=== PATIENT | female | born 1955 | race Caucasian/White ===

== ENCOUNTER 2019-09-23 10:46 | Emergency (ER) | payer MEDICAID, SELFPAY ==
[2019-09-23 11:07] VITALS: BP 117/53; PULSE 73; RESP 18; TEMP 36.6; O2SAT 97; BMI 25.0
--- NOTE | 2019-09-23 11:14 | W.ED.ABDPA2 ---
HPI - Abdominal Pain General: Chief Complaint: Abdominal Pain Stated Complaint: Abd pain, patient comes in today with right upper quadrant pain since 230 this morning. Patient knows she has a history of gallstones. Patient reports that she thinks is just acting up for her. Patient does have a history of coronary artery disease. Patient is a smoker. Patient appears well. Patient appears in mild pain. Time Seen by Provider: 09/23/19 11:13 Source: patient Mode of arrival: ambulatory Limitations: no limitations History of Present Illness: Associated Symptoms: Reports nausea Review of Systems General: Reports: 10 or more systems reviewed and unremarkable except in HPI and below GI: Reports: abdominal pain (RUQ) and nausea PFSH ED PFSH: Statuses (acute, chronic, etc) shown below reflect problem list status as previously entered and may not be historically accurate Social History Smoking and tobacco status: current every day smoker Physical Exam Const: COMMON NORMALS: no apparent distress and oriented x3 GENERAL APPEARANCE: cooperative HENMT: COMMON NORMALS: normocephalic, external ears normal, EAC's normal, TM's normal bilaterally and external nose normal HEAD & SCALP: normal to inspection and normocephalic FACE & SINUS: normal facial exam NOSE: external nose normal GENERAL EAR: hearing grossly impaired EXTERNAL EAR: Yes external ears normal EXTERNAL AUDITORY CANAL: EAC's normal TYMPANIC MEMBRANE: TM's normal bilaterally MOUTH: oral and palatal mucosa normal THROAT: posterior oropharynx normal Eye: COMMON NORMALS: PERRL and EOMs intact bilaterally PUPIL: Yes PERRL Neck/C-Spine: COMMON NORMALS: full ROM and no lymphadenopathy Lymph: LYMPHATIC: no lymphedema noted Chest: COMMONS NORMALS: inspection of chest normal and palpation of chest normal Resp: COMMON NORMALS: normal respiratory effort and clear to auscultation bilaterally AUSCULTATION: clear to auscultation bilaterally Cardio: COMMON NORMALS: regular rate and regular rhythm RATE: regular rate RHYTHM: regular rhythm GI: COMMON NORMALS: normal to inspection, nondistended, normoactive bowel sounds; negative for non-tender (ruq tenderness, no guarding) : COMMON NORMALS: Yes no CVA tenderness BLADDER/KIDNEY EXAM: Yes no CVA tenderness Back/Pelvis: COMMON NORMALS: no CVA tenderness and thoracic and lumbar spine normal to inspection Extremity: COMMON NORMALS: normal to inspection GENERAL: No edema Neuro: COMMON NORMALS: oriented x3, moves all extremities and no focal motor deficits Psych: COMMON NORMALS: mental status grossly normal and cooperative Skin: COMMON NORMALS: no rashes or lesions noted GENERAL SKIN EXAM: no rashes or lesions noted Course ED course: 1226, Patient reports pain relief unless she pushes on RUQ. Patient appears well. wjw Vital Signs: Vital signs: Vital Signs Temperature 97.8 F 09/23/19 11:07 Pulse Rate 71 09/23/19 14:09 Respiratory Rate 20 H 09/23/19 14:09 Blood Pressure 127/54 09/23/19 14:09 Pulse Oximetry 92 09/23/19 14:09 MDM - Abdominal Pain MDM Narrative: Medical decision making narrative: Patient comes in today for complaints of right upper quadrant pain radiating to the mid back. Patient appears well. Patient reports pain is better now since getting to the ER, but was real bad last night. Exam notes abdomen tenderness in the right upper quadrant. Bowel sounds are present throughout. Vital signs are stable without fever. Differential diagnosis includes cholecystitis, cholelithiasis, gastroenteritis, gastritis. Laboratory values were significant for some mild elevation in liver enzymes and lipase. Ultrasound of the gallbladder noted no common bile duct obstruction. Reviewed exam with patient recommended follow-up with surgeon for further treatment patient reported understanding and agreed to plan. Lab Data: Labs: Lab Results 09/23/19 09/23/19 09/23/19 Range/Units 11:50 11:59 11:59 WBC 11.2 H (4.0-10.0) 10^3/ uL RBC 6.04 H (4.1-5.3) 10^6/u L Hgb 13.6 (11.5-15.3) g/dL Hct 46.1 (37.0-47.0) % MCV 76.3 L (81-99) fL MCH 22.5 L (28.0-34.0) pg MCHC 29.5 L (30.0-36.0) g/dL RDW 17.2 H (12.1-15.1) % Plt Count 385 (130-400) 10^3/c mm MPV 9.9 (7.4-10.4) fL Neut % (Auto) 63.6 % Lymph % (Auto) 23.2 % [place] % (Auto) 8.6 % Eos % (Auto) 3.9 % Baso % (Auto) 0.4 % Neut # (Auto) 7.1 (1.8-7.7) 10^3/u L Lymph # (Auto) 2.6 (0.8-4.8) 10^3/u L [place] # (Auto) 1.0 H (0.2-0.9) 10^3/u L Eos # (Auto) 0.4 (0.0-0.8) 10^3/u L Baso # (Auto) 0.1 (0.0-0.1) 10^3/u L Nucleated RBC % (a uto) 0 % Nucleated RBCs # 0.0 /100WBC Sodium 136 (136-145) mmol/L Potassium 4.1 (3.5-5.1) mmol/L Chloride 94 L (98-107) mmol/L Carbon Dioxide 27 (22-29) mmol/L Anion Gap 19.1 H (5-19) BUN 17 (8-23) mg/dL Creatinine 0.6 (0.5-0.9) mg/dL GFR Calculation 100.6 (90-130) mL/min Glucose 147 H (74-106) mg/dL Calcium 10.8 H (8.8-10.2) mg/Dl Total Bilirubin 0.5 (0.15-1.2) mg/dL AST 12 (0-32) U/L ALT 7 (0-33) U/L Alkaline Phosphata se 107 H (35-105) IU/L Total Protein 8.5 (6.6-8.7) g/dL Albumin 5.2 (3.5-5.2) g/dL Globulin 3.3 (1.3-4.6) g/dL Lipase 61 H (13-60) U/L HCG, Qual (Negative) Urine Color Yellow (Yellow) Urine Appearance Sl hazy (CLEAR) Urine pH 5 (5-7) Ur Specific Gravit y 1.010 (1.005-1.030) Urine Protein Neg (Negative) Urine Glucose (UA) Norm (Normal) Urine Ketones Negative (Negative) Urine Occult Blood Trace H (Negative) Urine Nitrate Negative (Negative) Urine Bilirubin Neg (NEGATIVE) Urine Urobilinogen 1 H (Negative) mg/dL Ur Leukocyte Stefanie ase Negative (Negative) Urine RBC 0-4 H (0-2) /hpf Urine WBC Rare (0-5) /hpf Ur Squamous Epith Cells 25-40 H (0-5) Urine Bacteria 2+ H (NONE) Urine Mucus 1+ 09/23/19 Range/Units 11:59 WBC (4.0-10.0) 10^3/ uL RBC (4.1-5.3) 10^6/u L Hgb (11.5-15.3) g/dL Hct (37.0-47.0) % MCV (81-99) fL MCH (28.0-34.0) pg MCHC (30.0-36.0) g/dL RDW (12.1-15.1) % Plt Count (130-400) 10^3/c mm MPV (7.4-10.4) fL Neut % (Auto) % Lymph % (Auto) % [place] % (Auto) % Eos % (Auto) % Baso % (Auto) % Neut # (Auto) (1.8-7.7) 10^3/u L Lymph # (Auto) (0.8-4.8) 10^3/u L [place] # (Auto) (0.2-0.9) 10^3/u L Eos # (Auto) (0.0-0.8) 10^3/u L Baso # (Auto) (0.0-0.1) 10^3/u L Nucleated RBC % (a uto) % Nucleated RBCs # /100WBC Sodium (136-145) mmol/L Potassium (3.5-5.1) mmol/L Chloride (98-107) mmol/L Carbon Dioxide (22-29) mmol/L Anion Gap (5-19) BUN (8-23) mg/dL Creatinine (0.5-0.9) mg/dL GFR Calculation (90-130) mL/min Glucose (74-106) mg/dL Calcium (8.8-10.2) mg/Dl Total Bilirubin (0.15-1.2) mg/dL AST (0-32) U/L ALT (0-33) U/L Alkaline Phosphata se (35-105) IU/L Total Protein (6.6-8.7) g/dL Albumin (3.5-5.2) g/dL Globulin (1.3-4.6) g/dL Lipase (13-60) U/L HCG, Qual Negative (Negative) Urine Color (Yellow) Urine Appearance (CLEAR) Urine pH (5-7) Ur Specific Gravit y (1.005-1.030) Urine Protein (Negative) Urine Glucose (UA) (Normal) Urine Ketones (Negative) Urine Occult Blood (Negative) Urine Nitrate (Negative) Urine Bilirubin (NEGATIVE) Urine Urobilinogen (Negative) mg/dL Ur Leukocyte Stefanie ase (Negative) Urine RBC (0-2) /hpf Urine WBC (0-5) /hpf Ur Squamous Epith Cells (0-5) Urine Bacteria (NONE) Urine Mucus Discharge Plan Discharge Patient Disposition: Home, Self-Care Clinical Impression: Biliary colic Gallstone Qualifiers: Cholecystitis presence: without cholecystitis Biliary obstruction: without biliary obstruction Qualified Code(s): K80.20 - Calculus of gallbladder without cholecystitis without obstruction Condition: Stable Prescriptions: New dicyclomine 20 mg tablet 20 mg PO TID Qty: 20 RF: 0 hydrocodone-acetaminophen 5-325 mg tablet 1 tab PO Q6H PRN (Reason: pain) Qty: 14 RF: 0 ondansetron HCl 4 mg tablet 4 mg PO Q8H PRN (Reason: nausea and vomiting) Qty: 10 RF: 0 No Action furosemide 40 mg tablet 40 mg PO DAILY RF: 0 atorvastatin 40 mg tablet 40 mg PO DAILY RF: 0 metformin 500 mg tablet 1,000 mg PO BID RF: 0 aspirin 81 mg tablet,delayed release (DR/EC) 81 mg PO DAILY RF: 0 spironolactone 25 mg tablet 25 mg PO DAILY RF: 0 carvedilol 3.125 mg tablet 3.125 mg PO BID RF: 0 potassium chloride 20 mEq Tablet,Er Particles/Crystals 20 meq PO DAILY RF: 0 nicotine 21 mg/24 hr Patch 24 Hour 1 patch TRANSDERMAL DAILY RF: 0 lisinopril 5 mg tablet 5 mg PO DAILY RF: 0 Advair Diskus 100-50 mcg/dose Blister With Device 1 puff INHALATION BID RF: 0 Referrals: Ahsan Daugherty, [employer] [employer] [facility] [Primary Care Provider] - Discharge Diet: Low Fat Discharge Activity: Resume usual activity Patient Instructions: Biliary Colic (ED), Abdominal Pain (ED) Activity Restrictions/Additional Instructions: Light diet Avoid greasy, high fat meals Drink plenty of water with medications Follow-up with surgeon for further treatment Return to ER for fever, uncontrolled pain, or inability to hold medication down Coding Level of Care Code ED [facility] [employer] for Shruti Olvera Exam Problem Focused
--- NOTE | 2019-09-23 11:21 | USR_ITS ---
PROCEDURE INFORMATION: Exam: US Abdomen Limited, Right Upper Quadrant Exam date and time: 09/23/2019 1:16 PM Age: 64 years old Clinical indication: Abdominal pain; Additional info: Ruq pain, history of gallstones. Prior exam on 08-31-19 TECHNIQUE: Imaging protocol: Real-time ultrasound of the abdomen with image documentation. Examination was focused on the right upper quadrant. COMPARISON: US gall bladder [id number] 08/31/2019 7:23 AM FINDINGS: Liver: Within normal limits. No masses. Gallbladder: The gallbladder is distended with echogenic nonshadowing sludge. There is a 1.6 cm shadowing echogenic gallstone within the gallbladder lumen. The gallbladder wall is thickened and echogenic, measuring up to 5 mm. Sonographic Potts sign was not assessed. Common bile duct: Normal in caliber at 5 mm. No stones. Pancreas: Visualized portions of the pancreas are unremarkable. The pancreas was not visualized in its entirety secondary to shadowing bowel gas. Right kidney: The right kidney measures 10.1 by 6.8 x 5.5 cm. There is no evidence of hydronephrosis or shadowing echogenic renal stone. Aorta: The proximal aorta measures 2.0 cm. The mid aorta measures 1.8 cm. Inferior vena cava: The IVC measures approximately 1.5 cm. US/US gall bladder [id number] IMPRESSION: 1. Unchanged appearance of gallbladder sludge with cholelithiasis and gallbladder wall thickening. The common bile duct remains normal in caliber. A sonographic Potts sign was not provided making these findings equivocal for acute cholecystitis. Correlation with clinical parameters is suggested with general surgical consultation as warranted.
[2019-09-23 11:56] VITALS: BP 130/53; PULSE 70; RESP 18; O2SAT 97
--- NOTE | 2019-09-23 11:59 | PC.NURSE ---
Nurse at beside giving medications
[2019-09-23] MEDS: ondansetron 2 mg/ML SDV 2 mL 4 MG IVP (12:00)
[2019-09-23] MEDS: ketorolac 30 mg/mL INJ 15 MG IVP (12:00)
[2019-09-23 12:02] VITALS: RESP 18
[2019-09-23] MEDS: morphine 4 mg/mL SDV 1 mL 2 MG IVP (12:02)
[2019-09-23] MEDS: sodium chloride 0.9% 500 ML IV (12:11)
[2019-09-23 12:18] LABS: Basophils # 0.1 10^3/uL (0.0-0.1); Basophils % 0.4 %; Eosinophils # 0.4 10^3/uL (0.0-0.8); Eosinophils % 3.9 %; Hematocrit 46.1 % (37.0-47.0); Hemoglobin 13.6 g/dL (11.5-15.3); Lymphocytes # 2.6 10^3/uL (0.8-4.8); Lymphocytes % 23.2 %; Mean Corpuscular HGB Conc 29.5 g/dL (30.0-36.0); Mean Corpuscular Hemoglobin 22.5 pg (28.0-34.0); Mean Corpuscular Volume 76.3 fL (81-99); Mean Platelet Volume 9.9 fL (7.4-10.4); Monocytes % 8.6 %; Neutrophils # 7.1 10^3/uL (1.8-7.7); Neutrophils % 63.6 %; Nucleated Red Blood Cells % 0 %; Platelet Count 385 10^3/cmm (130-400); Red Blood Count 6.04 10^6/uL (4.1-5.3); Red Cell Distribution Width 17.2 % (12.1-15.1); White Blood Count 11.2 10^3/uL (4.0-10.0)
[2019-09-23 12:43] LABS: Bilirubin Urine Neg (NEGATIVE); Blood Urine Trace (Negative); Glucose Urine UA Norm (Normal); Ketones Urine Negative (Negative); Nitrate Urine Negative (Negative); Protein Urine Neg (Negative); Urine Appearance SL Hazy (CLEAR); Urine Color Yellow (Yellow); Urobilinogen Urine 1 mg/dL (Negative); pH Urine 5 (5-7)
[2019-09-23 12:44] LABS: Leukocyte Esterase Urine Negative (Negative)
[2019-09-23 12:45] LABS: Bacteria Urine 2+; Mucus Urine 1+; RBC Urine 0-4 /hpf (0-2); Squamous Epithelial Cell Urine 25-40 (0-5); WBC Urine RARE /hpf (0-5)
[2019-09-23 12:46] LABS: Add Urine Culture? No
[2019-09-23 12:59] LABS: HCG, Serum Qual Negative (Negative)
[2019-09-23 13:06] LABS: Alanine Aminotransferase 7 U/L (0-33); Albumin Level 5.2 g/dL (3.5-5.2); Alkaline Phosphatase 107 IU/L (35-105); Anion Gap 19.1 (5-19); Aspartate Amino Transferase 12 U/L (0-32); Blood Urea Nitrogen 17 mg/dL (8-23); Calcium 10.8 mg/Dl (8.8-10.2); Carbon Dioxide 27 mmol/L (22-29); Chloride 94 mmol/L (98-107); Globulin 3.3 g/dL (1.3-4.6); Glomerular Filtration Rate 100.6 mL/min (90-130); Glucose 147 mg/dL (74-106); Lipase 61 U/L (13-60); Potassium 4.1 mmol/L (3.5-5.1); Sodium 136 mmol/L (136-145); Total Bilirubin 0.5 mg/dL (0.15-1.2); Total Protein 8.5 g/dL (6.6-8.7)
[2019-09-23 14:09] VITALS: BP 127/54; PULSE 71; RESP 20; O2SAT 92
[2019-09-23 14:56] VITALS: BP 113/52; PULSE 68; RESP 20; O2SAT 91
--- NOTE | 2019-09-24 12:43 | DCPLANNER ---
manager assembly had message to schedule a follow up appointment for patient with general surgery. manager assembly called [facility], spoke with Guillermina, gave clinic patients information. A follow up appointment is scheduled for Thursday October 03, 2019 at 4:[address] Reddy. Clinic will call patient with the appointment information.
--- NOTE | 2019-10-09 14:23 | DCPLANNER ---
Patient attended appointment scheduled for 10.03.19 with [facility].
== END 2019-09-23 14:57 | disposition home or self-care (01) ==
PROVIDERS: Emergency Provider Nurse Practitioner Family; Family Provider Nurse Practitioner Family; PCP Nurse Practitioner Family
DX: K80.20 Calculus of gallbladder without cholecystitis without obstruction (principal); F17.210 Nicotine dependence, cigarettes, uncomplicated
CPT/HCPCS: 76705; 80053; 81001; 83690; 84703; 85025; 96360; 96374; 99282; A9270; J1885; J2270; J2405; J7040

== ENCOUNTER 2019-12-11 08:32 | Outpatient (CLI) | payer MEDICAID, SELFPAY ==
--- NOTE | 2019-12-11 09:30 | USCV_ITS ---
Shannan Cisneros Age: 64 Gender: F : 1955 Exam Date: 12/11/2019 08:53 Ordering Phys: Diogenes Hawley MD ([email or web address]) Technologist: Vidal Treviño [place] [facility] [place]ication: ? EF BP: 136 / 80 HR: 75 Rhythm: Sinus Technical Quality: Fair MEASUREMENTS (Male / Female) Normal Values 2D ECHO LV Diastolic Diameter PLAX 5.3 cm 4.2 - 5.9 / 3.9 - 5.3 cm LV Systolic Diameter PLAX 4.5 cm IVS Diastolic Thickness 1.2 cm 0.6 - 1.0 / 0.6 - 0.9 cm IVS Systolic Thickness 1.3 cm LVPW Diastolic Thickness 0.9 cm 0.6 - 1.0 / 0.6 - 0.9 cm LVPW Systolic Thickness 1.3 cm LVOT Diameter 2.0 cm LV Ejection Fraction 2D Teich 31.2 % LV Ejection Fraction MOD 2C 42.4 % LV Ejection Fraction 2C AL 42.2 % LA Diameter 4.5 cm LA Width 3.7 cm LA Height 4.5 cm RA Width 3.4 cm RA Height 4.3 cm Aorta at Sinotubular Diameter 2.7 cm M-MODE LV Diastolic Diameter MM 5.6 cm 4.2 - 5.9 / 3.9 - 5.3 cm LV Systolic Diameter MM 4.6 cm LV Ejection Fraction MM Teich 34.8 % IVS Diastolic Thickness MM 1.1 cm 0.6 - 1.0 / 0.6 - 0.9 cm IVS Systolic Thickness MM 1.5 cm LVPW Diastolic Thickness MM 1.4 cm 0.6 - 1.0 / 0.6 - 0.9 cm LVPW Systolic Thickness MM 1.8 cm RV Diastolic Diameter MM 2.1 cm Aortic Annulus Diameter 2.9 cm LA Ao Ratio MM 1.6 MV E Point Septal Separation 2.3 cm DOPPLER AV Peak Velocity 181.0 cm/s LVOT Peak Velocity 101.0 cm/s AV Area Cont Eq vti 1.9 cm squared AV Area Cont Eq pk 1.8 cm squared MV Area PHT 5.0 cm squared Mitral E to A Ratio 0.6 MV E' Velocity 8.0 cm/s Mitral E to MV E' Ratio 9.6 Mitral E to LV E' Lateral Ratio 8.4 Mitral E to LV E' Septal Ratio 11.3 TR Peak Velocity 171.0 cm/s TR Peak Gradient 11.7 mmHg TV Peak E Velocity 83.0 cm/s Right Atrial Pressure 3.0 mmHg Pulmonary Artery Systolic Pressu 14.7 mmHg FINDINGS Left Ventricle Mildly increased left ventricular cavity size. Diffuse hypokinesia of the left ventricle with ejection fraction of around 30%.Grade I/IV diastolic dysfunction (abnormal relaxation filling pattern), normal to mildly elevated filling pressures. Right Ventricle Normal right ventricular size and systolic function. Right Atrium Possibly of normal size Left Atrium Mildly increased left atrial size. Mitral Valve Thickened mitral valve. Aortic Valve Thickened aortic valve. Moderate aortic valve regurgitation. Tricuspid Valve No gross abnormalities noted Pulmonic Valve Pulmonic valve not well visualized. Pericardium No pericardial effusion. Aorta Normal aortic annulus size. CONCLUSIONS Mildly increased left ventricular cavity size. Diffuse hypokinesia of the left ventricle with ejection fraction of around 30%. Grade I/IV diastolic dysfunction (abnormal relaxation filling pattern), normal to mildly elevated filling pressures. Mildly increased left atrial size. Thickened aortic valve. Moderate aortic valve regurgitation. There is no pericardial effusion. There are no intracardiac masses. Compared to the previous study from 08/31/2019, there may not be a significant change. Dr Negra Peña MD FACC (Electronically Signed) Final Date: 11 December 2019 19:21 S
== END 2019-12-11 08:33 | disposition home or self-care (01) ==
PROVIDERS: Family Provider Nurse Practitioner Family; PCP Nurse Practitioner Family; Visit Provider Internal Medicine Cardiovascular Disease
DX: I42.8 Other cardiomyopathies (principal); I51.7 Cardiomegaly; I35.1 Nonrheumatic aortic (valve) insufficiency
CPT/HCPCS: 93306

== ENCOUNTER 2020-02-08 08:40 | Outpatient (CLI) | payer MEDICAID, SELFPAY ==
--- NOTE | 2020-02-08 08:45 | USCV_ITS ---
Shannan Cisneros Age: 64 Gender: F : 1955 Exam Date: 02/08/2020 09:05 Ordering Phys: Celena Espana MD ([email or web address]) Technologist: Vidal Treviño Exam Location: [place] Indication: EF BP: 130 / 78 HR: 70 Rhythm: Sinus Technical Quality: Adequate MEASUREMENTS (Male / Female) Normal Values 2D ECHO LV Diastolic Diameter PLAX 5.3 cm 4.2 - 5.9 / 3.9 - 5.3 cm LV Systolic Diameter PLAX 3.8 cm IVS Diastolic Thickness 1.1 cm 0.6 - 1.0 / 0.6 - 0.9 cm IVS Systolic Thickness 1.4 cm LVPW Diastolic Thickness 1.2 cm 0.6 - 1.0 / 0.6 - 0.9 cm LVPW Systolic Thickness 1.6 cm LVOT Diameter 2.0 cm LV Ejection Fraction 2D Teich 52.8 % LV Ejection Fraction MOD 2C 55.7 % LV Ejection Fraction 2C AL 55.0 % LA Diameter 4.4 cm LA Width 3.9 cm LA Height 5.0 cm RA Width 3.8 cm RA Height 4.6 cm M-MODE LV Diastolic Diameter MM 5.7 cm 4.2 - 5.9 / 3.9 - 5.3 cm LV Systolic Diameter MM 4.8 cm LV Ejection Fraction MM Teich 34.0 % IVS Diastolic Thickness MM 1.0 cm 0.6 - 1.0 / 0.6 - 0.9 cm IVS Systolic Thickness MM 1.4 cm LVPW Diastolic Thickness MM 1.5 cm 0.6 - 1.0 / 0.6 - 0.9 cm LVPW Systolic Thickness MM 1.8 cm RV Diastolic Diameter MM 2.1 cm Aortic Annulus Diameter 3.7 cm LA Ao Ratio MM 1.2 MV E Point Septal Separation 2.3 cm FINDINGS Left Ventricle Normal left ventricular cavity size. Moderately decreased left ventricular systolic function. Left ventricular ejection fraction is estimated at 35-40 %. Moderate diffuse hypokinesis. Abnormal septal motion consistent with conduction abnormality. Right Ventricle Normal right ventricular size and systolic function. Right Atrium Normal right atrial size. Right atrial pressure estimated at 3 mmHg. Left Atrium Normal left atrial size. Mitral Valve Moderately thickened mitral valve. Trace mitral valve regurgitation. Aortic Valve Aortic valve not well visualized. Tricuspid Valve Structurally normal tricuspid valve. Pulmonic Valve Pulmonic valve not well visualized. Pericardium No pericardial effusion. Aorta Normal size aortic root and proximal ascending aorta. CONCLUSIONS 1. Normal left ventricular cavity size. Moderately decreased left ventricular systolic function. Left ventricular ejection fraction is estimated at 35-40 %. Moderate diffuse hypokinesis. 2. Normal right ventricular size and systolic function. 3. Right atrial pressure estimated at 3 mmHg. 4. When compared to previous echocardiogram dated 11/19/2019, left ventricle systolic function seems to have improved. Celena Espana MD (Electronically Signed) Final Date: 12 Feb 2020 10:57 S
== END 2020-02-08 08:41 | disposition home or self-care (01) ==
PROVIDERS: PCP Nurse Practitioner Family; Visit Provider Internal Medicine Cardiovascular Disease
DX: I50.42 Chronic combined systolic (congestive) and diastolic (congestive) heart failure (principal)
CPT/HCPCS: 93308

== ENCOUNTER → 2020-02-13 08:49 | Outpatient (BNVA) | payer MEDICAID, SELFPAY | PROVIDERS: Family Provider Nurse Practitioner Family; PCP Nurse Practitioner Family; Visit Provider Internal Medicine Cardiovascular Disease | DX: I42.9 Cardiomyopathy, unspecified (principal); I42.0 Dilated cardiomyopathy; I25.10 Atherosclerotic heart disease of native coronary artery without angina pectoris; I10 Essential (primary) hypertension; E78.5 Hyperlipidemia, unspecified | CPT/HCPCS: 80048; 83735; 83880 ==

== ENCOUNTER 2020-10-01 11:00 | Outpatient (CLI) | payer MEDICAID, SELFPAY | END 2020-10-01 11:01 | disposition home or self-care (01) | LOC: SLEEP 10-03 08:34 | PROVIDERS: Family Provider Nurse Practitioner Family; PCP Nurse Practitioner Family; Visit Provider Internal Medicine Cardiovascular Disease | DX: G47.10 Hypersomnia, unspecified (principal) | CPT/HCPCS: 94762 ==

== ENCOUNTER → 2021-04-22 15:50 | Outpatient (BNVA) | payer MEDICARE, MEDICAID, SELFPAY | PROVIDERS: Family Provider Nurse Practitioner Family; PCP Nurse Practitioner Family; Visit Provider Internal Medicine Cardiovascular Disease | DX: I42.0 Dilated cardiomyopathy (principal); G47.10 Hypersomnia, unspecified; I25.10 Atherosclerotic heart disease of native coronary artery without angina pectoris; I10 Essential (primary) hypertension; E78.2 Mixed hyperlipidemia; E11.9 Type 2 diabetes mellitus without complications; J44.9 Chronic obstructive pulmonary disease, unspecified; I73.9 Peripheral vascular disease, unspecified | CPT/HCPCS: 80053; 80061; 83036; 83735; 85025 ==

== ENCOUNTER 2022-03-07 09:49 | Emergency (ER) | payer MEDICARE, MEDICAID, SELFPAY ==
[2022-03-07 10:03] VITALS: BP 91/51; PULSE 75; RESP 16; TEMP 36.2; O2SAT 100; BMI 27.3
--- NOTE | 2022-03-07 10:11 | ED_ITS ---
HPI - General Adult General: Chief complaint: General Medical Stated complaint: right side pain Time Seen by Provider: 03/07/22 09:50 History of Present Illness: Patient is a 66-year-old female who comes to the ED with right-sided pain. Past medical history of diabetes, COPD, hypertension, hyperlipidemia and CAD. Pain started last night and had acute onset. Pain is located in the right flank and right rib area. She rates the pain currently a 5 out of 10. Says her right ribs and right flank are tender to touch. Any torso movements cause worsening pain. Sitting or resting improves pain. 5 days ago, she excellently locked herself out of her house and had to crawl through one of the windows to get into her home. She thinks it is possible that that caused some of the pain she is having today. Denies any fevers, nausea/vomiting, dysuria, hematuria. Associated symptoms: Deny chest pain, dyspnea, headache(s), nausea, rash, palpitations or vomiting Review of Systems Const: Denies: fever(s), chills or fatigue Eyes: Denies: change in vision or eye discomfort ENMT: Denies: throat pain, odynophagia, nasal discharge or nasal congestion Card: Denies: chest pain, palpitations, edema, swelling of feet/ankles, dyspnea on exertion or orthopnea Resp: Denies: dyspnea, productive cough or non-productive cough GI: Denies: abdominal pain, nausea, vomiting, diarrhea, constipation or hematochezia : Reports: flank pain (right); Denies: dysuria or hematuria Musc: Reports: other (right rib pain); Denies: neck pain, back pain or extremity swelling Skin/Breast: Denies: rash or new lesions Neuro: Denies: headache(s), numbness in extremities or weakness in extremities PFSH ED PFSH: Medical History Abdominal pain CAD (coronary artery disease) Cardiomyopathy Cholelithiasis Claudication of both lower extremities COPD (chronic obstructive pulmonary disease) Diabetes Hyperlipidemia Hypertension Thickening of wall of gallbladder Family History Denies family history of Anesthesia complication Bleeding disorder Social History Smoking and tobacco status: current every day smoker cigarettes Packs smoked per day: 1 Quit status (tobacco): has tried quititng Second hand smoke exposure: Yes Alcohol intake: never Adopted: No Caregiver/support person: Yes Lives independently: Yes Household members: family Housing: House Marital status: Highest education level completed: High School Graduate service: No Current occupational status: retired Current occupational exposures/hazards: No Pets and animals: No History of recent travel: No Sexually active: No Current gender identity: Female Janet/Christianity: L[employer] Special janet needs: No Agree to transfusion: No Financial difficulty paying for basics: Decline to Answer Physical Exam Const: COMMON NORMALS: patient oriented x3 and alert GENERAL APPEARANCE: cooperative HENMT: COMMON NORMALS: normocephalic HEAD & SCALP: normocephalic MOUTH: Normal oral and palatal mucosa present THROAT: posterior oropharynx normal and uvula midline Eye: COMMON NORMALS: Equal, round and reactive pupils present and conjunctivae normal CONJUNCTIVA: Yes conjunctivae normal PUPIL: Yes Equal, round and reactive pupils present Neck/C-Spine: COMMON NORMALS: supple GENERAL: Yes normal visual inspection Chest: CHEST: Yes tenderness rib right mid-scapular line involving the 9th rib and involving the 10th rib Resp: COMMON NORMALS: normal respiratory effort, No retractions, No use of accessory muscles and clear to auscultation bilaterally AUSCULTATION: clear to auscultation bilaterally Cardio: COMMON NORMALS: regular rate, regular rhythm, S1 normal heart sound present, S2 normal heart sound present, No gallops present (Cardio), No clicks present (Cardio), No murmurs present (Cardio) and Peripheral pulses 2+ throughout RATE: regular rate RHYTHM: regular rhythm HEART SOUNDS: S1 normal heart sound present and S2 normal heart sound present PERIPHERAL PULSES: Peripheral pulses 2+ throughout GI: COMMON NORMALS: Normal to inspection, nondistended, normoactive bowel sounds present, Soft to palpation, non-tender and no masses PALPATION: Yes Soft to palpation : COMMON NORMALS: Yes no CVA tenderness BLADDER/KIDNEY EXAM: Yes no CVA tenderness Back/Pelvis: COMMON NORMALS: no CVA tenderness Extremity: COMMON NORMALS: normal to inspection Neuro: COMMON NORMALS: patient oriented x3 and moves all extremities SENS ORIUM/ORIENTATION: Yes alert Skin: GENERAL SKIN EXAM: dry skin Course Vital Signs: Vital signs: Vital Signs Temperature 97.2 F L 03/07/22 10:03 Pulse Rate 75 03/07/22 10:03 Respiratory Rate 18 03/07/22 13:25 Blood Pressure 135/38 03/07/22 11:26 Pulse Oximetry 96 03/07/22 13:25 [facility] - General Adult Medical Decision Making Patient is a 66-year-old female comes to the ED with right rib and right flank pain. Denies any fevers, nausea/vomiting, dysuria or hematuria. Vitals are stable. Patient does have some right lateral rib tenderness to palpation but the rest of exam is benign. CBC was unremarkable. Potassium 6.1 and creatinine was 1.4. Patient was given IV fluids here in the ED and we rechecked her BMP and her potassium stayed the same but creatinine went down to 1.2. Rib x-ray showed no acute fractures or findings. CT abdomen pelvis showed some nondisplaced fractures of 10th and ninth right rib. Based off the history,rib fractures and right sided pain likely occurred when patient was climbing through a window of her house when she accidentally locked herself out days ago. I discussed patient case with Dr. Tate and we recommended admission to the hospital for patient. Patient decided she did not want to get admitted to hospital and preferred outpatient treatment. I explained to her the risks of not being admitted and monitored. I stressed with her the importance of following up with her PCP within the next 24 to 48 hours and to have her potassium levels rechecked. She was given strict return to ED precautions. She was diagnosed with right rib fractures and hyperkalemia and was discharged home with some hydrocodone for pain. Patient understood and agreed with plan. Lab Data I reviewed the patient's lab results. : 03/07/22 10:40 03/07/22 14:24 Radiology Impressions Ribs X-Ray 03/07/22 10:22 IMPRESSION: 1. No acute cardiopulmonary abnormality identified. 2. No acute rib fracture is identified. Abdomen/Pelvis CT 03/07/22 11:59 IMPRESSION: 1. There are multiple nondistended fluid-filled loops of small bowel. There is fluid noted in the ascending and transverse colon. These findings are nonspecific but can be seen with enteritis or other causes of watery diarrhea. Correlate clinically. 2. Nondisplaced fractures involving the anterior right 10th and 9th ribs. 3. Nonobstructive bilateral renal stones. No hydronephrosis or obstructive ureteral stone. 4. 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 No definite gallstone. 5. Coronary artery disease. Laboratory Results WBC 11.9 10^3/uL (4.0-10.0) H 03/07/22 10:40 RBC 4.11 10^6/uL (4.1-5.3) 03/07/22 10:40 Hgb 10.9 g/dL (11.5-15.3) L 03/07/22 10:40 Hct 36.0 % (37.0-47.0) L 03/07/22 10:40 MCV 87.6 fl (81-99) 03/07/22 10:40 MCH 26.5 pg (28.0-34.0) L 03/07/22 10:40 MCHC 30.3 g/dL (30.0-36.0) 03/07/22 10:40 RDW 16.4 % (12.1-15.1) H 03/07/22 10:40 Plt Count 269 10^3/cmm (130-400) 03/07/22 10:40 MPV 10.5 fL (7.4-10.4) H 03/07/22 10:40 Neut % (Auto) 68.2 % 03/07/22 10:40 Lymph % (Auto) 21.6 % 03/07/22 10:40 [place] % (Auto) 8.1 % 03/07/22 10:40 Eos % (Auto) 1.4 % 03/07/22 10:40 Baso % (Auto) 0.4 % 03/07/22 10:40 Neut # (Auto) 8.12 10^3/uL (1.8-7.7) H 03/07/22 10:40 Lymph # (Auto) 2.6 10^3/uL (0.8-4.8) 03/07/22 10:40 [place] # (Auto) 1.0 10^3/uL (0.2-0.9) H 03/07/22 10:40 Eos # (Auto) 0.2 10^3/uL (0.0-0.8) 03/07/22 10:40 Baso # (Auto) 0.1 10^3/uL (0.0-0.1) 03/07/22 10:40 Nucleated RBC % (auto) 0 % 03/07/22 10:40 Nucleated RBCs # 0.0 /100WBC 03/07/22 10:40 Sodium 136 mmol/L (136-145) 03/07/22 14:24 Potassium 6.1 mmol/L (3.5-5.1) H 03/07/22 14:24 Chloride 108 mmol/L (98-107) H 03/07/22 14:24 Carbon Dioxide 19 mmol/L (22-29) L 03/07/22 14:24 Anion Gap 15.1 (5-19) 03/07/22 14:24 BUN 40 mg/dL (8-23) H 03/07/22 14:24 Creatinine 1.2 mg/dL (0.5-0.9) H 03/07/22 14:24 GFR Calculation 44.9 mL/min (90-130) L 03/07/22 14:24 Glucose 88 mg/dL (65-115) 03/07/22 14:24 Calculated Osmolality 291 mOsm/kg (285-295) 03/07/22 14:24 Calcium 8.6 mg/dL (8.5-10.5) 03/07/22 14:24 Total Bilirubin 0.2 mg/dL (0.15-1.2) 03/07/22 10:40 AST 10 U/L (0-32) 03/07/22 10:40 ALT < 5 U/L (0-33) 03/07/22 10:40 Alkaline Phosphatase 95 IU/L (35-105) 03/07/22 10:40 Total Protein 7.9 g/dL (6.6-8.7) 03/07/22 10:40 Albumin 4.4 g/dL (3.5-5.2) 03/07/22 10:40 Globulin 3.5 g/dL (1.3-4.6) 03/07/22 10:40 Lipase 18 U/L (13-60) 03/07/22 10:40 Urine Color Yellow (Yellow) 03/07/22 10:48 Urine Appearance Sl hazy (CLEAR) 03/07/22 10:48 Urine pH 5 (5-7) 03/07/22 10:48 Ur Specific [place] 1.015 (1.005-1.030) 03/07/22 10:48 Urine Protein Neg (Negative) 03/07/22 10:48 Urine Glucose (UA) Norm (Normal) 03/07/22 10:48 Urine Ketones Negative (Negative) 03/07/22 10:48 Urine Blood Neg (Negative) 03/07/22 10:48 Urine Nitrate Negative (Negative) 03/07/22 10:48 Urine Bilirubin Neg (Negative) 03/07/22 10:48 Urine Urobilinogen Norm mg/dL (Negative) 03/07/22 10:48 Ur Leukocyte Esterase Negative (Negative) 03/07/22 10:48 Urine RBC 0-4 /hpf (0-2) H 03/07/22 10:48 Urine WBC 5-10 /hpf (0-5) H 03/07/22 10:48 Ur Squamous Epith Cells 25-40 /hpf (0-5) H 03/07/22 10:48 Amorphous Sediment Not Reportable 03/07/22 10:48 Urine Bacteria 2+ /hpf (NONE) H 03/07/22 10:48 EKG Data EKG 1: EKG interpretation date: 03/07/22 Interpretation: Sinus rhythm with possible first-degree AV block. No ST segment elevation or depression seen. No spiked T waves noted. Computer generated interpretation: Ribs X-Ray 03/07/22 10:22 IMPRESSION: 1. No acute cardiopulmonary abnormality identified. 2. No acute rib fracture is identified. Abdomen/Pelvis CT 03/07/22 11:59 IMPRESSION: 1. There are multiple nondistended fluid-filled loops of small bowel. There is fluid noted in the ascending and transverse colon. These findings are nonspecific but can be seen with enteritis or other causes of watery diarrhea. Correlate clinically. 2. Nondisplaced fractures involving the anterior right 10th and 9th ribs. 3. Nonobstructive bilateral renal stones. No hydronephrosis or obstructive ureteral stone. 4. 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 No definite gallstone. 5. Coronary artery disease. Discharge Plan Discharge Patient Disposition: Home Clinical Impression: Hyperkalemia Rib fractures Qualifiers: Encounter type: initial encounter Fracture type: closed Laterality: right Qualified Code(s): S22.41XA - Multiple fractures of ribs, right side, initial encounter for closed fracture Condition: Stable Prescriptions: No Action potassium chloride 10 mEq tablet,ER particles/crystals PO 0RF furosemide 20 mg tablet PO 0RF carvedilol 6.25 mg tablet 6.25 mg PO BID Qty: 60 5RF Rx Instructions: DOSE INCREASE lisinopril 20 mg tablet 20 mg PO BID Qty: 180 3RF spironolactone 25 mg tablet See Rx Instructions .ROUTE .COMPLEX Qty: 30 6RF Dose Instruction: TAKE ONE TABLET BY MOUTH DAILY *use lasix with POTASSIUM NEEDED * Rx Instructions: TAKE ONE TABLET BY MOUTH DAILY *use lasix with POTASSIUM NEEDED * atorvastatin 40 mg tablet 40 mg PO DAILY 0RF metformin 500 mg tablet 1,000 mg PO BID 0RF aspirin 81 mg tablet,delayed release (DR/EC) 81 mg PO DAILY 0RF Advair Diskus 100-50 mcg/dose Blister With Device 1 puff INHALATION BID 0RF Discharge Orders: Discharge ED (Routine); Ordered 03/07/22 Ordered By: Steffen Louise Referrals: Willow Foreman APN [Primary Care Provider] - Discharge Diet: Regular Discharge Activity: Increase activity as tolerated Patient Instructions: Rib Fracture (ED), Hyperkalemia (ED) Activity Restrictions/Additional Instructions: Follow-up with medical provider as directed within the next 24 to 48 hours to have potassium levels rechecked and to be reevaluated by PCP. Take medications as prescribed. Continue all other home meds. Make sure to drink plenty of fluids and stay hydrated. Return to the ER or your medical provider if condition worsens. Please read and understand discharge instructions. Thank you for choosing [facility] for your healthcare needs today. Please realize this is an emergency room and that we are providing you with a medical screening exam and this may not be complete and all inclusive of all the testing and or work up that you may need to determine your ailment or severity of your illness. It is very important that you follow up as instructed or that you return to the Emergency Department should you have concerns or if your condition changes or worsens in any way. Coding Level of Care Code ED County Supervisor for Shruti Olvera Exam Comprehensive
--- NOTE | 2022-03-07 10:22 | XRR_ITS ---
PROCEDURE INFORMATION: Exam: XR Right Ribs with PA Chest Exam date and time: 03/07/2022 10:52 AM Age: 66 years old Clinical indication: Right rib pain TECHNIQUE: Imaging protocol: Radiologic exam of the Right ribs with PA chest. Views: 3 views COMPARISON: CR Chest 1 [place] [id number] 09/01/2019 11:18 AM FINDINGS: Lungs: Subsegmental atelectasis or scarring at the left base. Pleural spaces: No pleural effusion. No pneumothorax. Heart/Mediastinum: The cardiac silhouette is approximately unchanged. No gross evidence of pneumomediastinum. Bones/joints: No gross fracture. XR/XR ribs RT mn 3V w CXR1V [id number] IMPRESSION: 1. No acute cardiopulmonary abnormality identified. 2. No acute rib fracture is identified.
[2022-03-07 10:57] LABS: Basophils # 0.1 10^3/uL (0.0-0.1); Basophils % 0.4 %; Eosinophils # 0.2 10^3/uL (0.0-0.8); Eosinophils % 1.4 %; Hemoglobin 10.9 g/dL (11.5-15.3); Lymphocytes # 2.6 10^3/uL (0.8-4.8); Lymphocytes % 21.6 %; Mean Corpuscular HGB Conc 30.3 g/dL (30.0-36.0); Mean Corpuscular Hemoglobin 26.5 pg (28.0-34.0); Mean Corpuscular Volume 87.6 fl (81-99); Mean Platelet Volume 10.5 fL (7.4-10.4); Monocytes % 8.1 %; Neutrophils # 8.12 10^3/uL (1.8-7.7); Neutrophils % 68.2 %; Nucleated Red Blood Cells % 0 %; Platelet Count 269 10^3/cmm (130-400); Red Blood Count 4.11 10^6/uL (4.1-5.3); Red Cell Distribution Width 16.4 % (12.1-15.1); White Blood Count 11.9 10^3/uL (4.0-10.0)
[2022-03-07 11:08] VITALS: RESP 16
[2022-03-07] MEDS: ondansetron 2 mg/ML SDV 2 mL 4 MG IVP (11:08)
[2022-03-07] MEDS: morphine 4 mg/mL SDV 1 mL 2 MG IVP (11:08)
[2022-03-07 11:16] LABS: Alanine Aminotransferase < 5 U/L (0-33); Albumin Level 4.4 g/dL (3.5-5.2); Alkaline Phosphatase 95 IU/L (35-105); Aspartate Amino Transferase 10 U/L (0-32); Blood Urea Nitrogen 46 mg/dL (8-23); Carbon Dioxide 19 mmol/L (22-29); Chloride 105 mmol/L (98-107); Globulin 3.5 g/dL (1.3-4.6); Glomerular Filtration Rate 37.6 mL/min (90-130); Glucose 110 mg/dL (65-115); Lipase 18 U/L (13-60); Osmolality Calculated 295 mOsm/kg (285-295); Sodium 136 mmol/L (136-145); Total Bilirubin 0.2 mg/dL (0.15-1.2); Total Protein 7.9 g/dL (6.6-8.7)
[2022-03-07 11:26] VITALS: BP 135/38; RESP 18
[2022-03-07 11:26] LABS: Urine Appearance SL Hazy (CLEAR); Urine Color Yellow (Yellow); pH Urine 5 (5-7)
[2022-03-07 11:27] LABS: Bilirubin Urine Neg (Negative); Blood Urine Neg (Negative); Glucose Urine UA Norm (Normal); Ketones Urine Negative (Negative); Leukocyte Esterase Urine Negative (Negative); Nitrate Urine Negative (Negative); Protein Urine Neg (Negative); Specific Gravity, Urine 1.015 (1.005-1.030); Urobilinogen Urine Norm (Negative)
[2022-03-07 11:28] LABS: Add Urine Microscopic? YES
[2022-03-07 11:30] LABS: RBC Urine 0-4 /hpf (0-2)
[2022-03-07 11:31] LABS: Bacteria Urine 2+ /hpf; Squamous Epithelial Cell Urine 25-40 /hpf (0-5)
[2022-03-07 11:32] LABS: Add Urine Culture? No
--- NOTE | 2022-03-07 11:59 | CTR_ITS ---
PROCEDURE INFORMATION: Exam: CT Abdomen And Pelvis Without Contrast Exam date and time: 03/07/2022 12:15 PM Age: 66 years old Clinical indication: Right flank abdominal pain. Right rib pain after crawling through window. TECHNIQUE: Imaging protocol: Computed tomography of the abdomen and pelvis without contrast. Radiation optimization: All CT scans at this facility use at least one of these dose optimization techniques: automated exposure control; mA and/or kV adjustment per patient size (includes targeted exams where dose is matched to clinical indication); or iterative reconstruction. COMPARISON: US gall bladder [id number] 09/23/2019 12:51 PM RADIATION DOSE METRICS: Total DLP (mGy-cm): 1422.71 FINDINGS: Lungs: Minimal scarring or atelectasis at the lung bases. Coronary arterial calcifications are noted. No pericardial effusion. No hiatal hernia. Liver: The liver is unremarkable. Gallbladder and bile ducts: There is extensive calcification in the gallbladder wall. No definite stone. Pancreas: The pancreas is unremarkable. Spleen: The spleen is unremarkable. Adrenal glands: The adrenal glands are unremarkable. Kidneys and ureters: Nonobstructive bilateral renal stones. No hydronephrosis. No obstructive ureteral stone. Stomach and bowel: There are multiple nondistended fluid-filled loops of small bowel. There is fluid noted in the ascending and transverse colon. These findings are nonspecific but can be seen with enteritis or other causes of watery diarrhea. Correlate clinically. The colon is unremarkable. Appendix: The appendix is unremarkable. Intraperitoneal space: No free intraperitoneal air is seen. Vasculature: No abdominal aortic aneurysm. Lymph nodes: No retroperitoneal lymphadenopathy. Urinary bladder: The bladder is partially decompressed. Reproductive: The uterus and adnexa are grossly unremarkable. 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 Nondisplaced fractures involving the anterior right 10th and 9th ribs Soft tissues: No significant umbilical hernia. CT/CT abdomen pelvis wo con [id number] IMPRESSION: 1. There are multiple nondistended fluid-filled loops of small bowel. There is fluid noted in the ascending and transverse colon. These findings are nonspecific but can be seen with enteritis or other causes of watery diarrhea. Correlate clinically. 2. Nondisplaced fractures involving the anterior right 10th and 9th ribs. 3. Nonobstructive bilateral renal stones. No hydronephrosis or obstructive ureteral stone. 4. 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 No definite gallstone. 5. Coronary artery disease.
[2022-03-07 12:14] LABS: Anion Gap 18.1 (5-19); Potassium 6.1 mmol/L (3.5-5.1)
--- NOTE | 2022-03-07 12:22 | ECG_ITS ---
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 Measurements Intervals [place] Rate: 65 P: 78 MO: 233 QRS: 60 QRSD: 109 T: 65 QT: 442 QTc: 460 Interpretive Statements SINUS RHYTHM WITH MARKED SINUS ARRHYTHMIA WITH FIRST DEGREE AV BLOCK LOW QRS VOLTAGE IN PRECORDIAL LEADS [QRS DEFLECTION < 1.0 mV IN CHEST LEADS] POSSIBLE ANTERIOR MYOCARDIAL INFARCTION , OF INDETERMINATE AGE [30 ms Q WAVE IN V3/V4, OR R < 0.2 mV IN V4] Compared to ECG 08/31/2019 20:27:21 First degree AV block now present Low QRS voltage now present Myocardial infarct finding now present Atrial abnormality no longer present T-wave abnormality no longer present Possible ischemia no longer present Electronically Signed On 03-07-2022 12:57:24 CDT by Celena Espana M.D. [email or web address]
[2022-03-07] MEDS: sodium chloride 0.9% 500 ML 999 ML IV (12:50)
--- NOTE | 2022-03-07 12:51 | PC.NURSE ---
pt refusing monitor
[2022-03-07 13:25] VITALS: RESP 18; O2SAT 96
[2022-03-07] MEDS: morphine 4 mg/mL SDV 1 mL IVP (13:25)
[2022-03-07 14:58] LABS: Anion Gap 15.1 (5-19); Blood Urea Nitrogen 40 mg/dL (8-23); Calcium 8.6 mg/dL (8.5-10.5); Carbon Dioxide 19 mmol/L (22-29); Chloride 108 mmol/L (98-107); Glomerular Filtration Rate 44.9 mL/min (90-130); Glucose 88 mg/dL (65-115); Osmolality Calculated 291 mOsm/kg (285-295); Potassium 6.1 mmol/L (3.5-5.1); Sodium 136 mmol/L (136-145)
[2022-03-07 15:43] VITALS: BP 125/37; PULSE 63; RESP 16; O2SAT 99
== END 2022-03-07 15:43 | disposition home or self-care (01) ==
PROVIDERS: Emergency Provider Physician Assistant; PCP Nurse Practitioner Family
DX: S22.41XA Multiple fractures of ribs, right side, initial encounter for closed fracture (principal); X58.XXXA Exposure to other specified factors, initial encounter; E11.9 Type 2 diabetes mellitus without complications; E78.5 Hyperlipidemia, unspecified; I10 Essential (primary) hypertension
CPT/HCPCS: 71101; 74176; 80048; 80053; 81001; 83690; 85025; 93005; 96374; 96375; 96376; 99285; J2270; J2405; J7040

== ENCOUNTER 2022-04-02 16:13 | Inpatient (IN) | payer MEDICARE, MEDICAID, SELFPAY ==
[2022-04-02 16:37] VITALS: BP 81/50; PULSE 73; RESP 16; TEMP 36.6; O2SAT 96
--- NOTE | 2022-04-02 17:12 | W.ED.ABDPA2 ---
HPI - Abdominal Pain General: Chief Complaint: Abdominal Pain Stated Complaint: low on blood Time Seen by Provider: 04/02/22 17:11 History of Present Illness: Ms Cisneros is a 66-year-old lady with history of COPD, CAD, hypertension, hyperlipidemia, diabetes who presents to the emergency department due to concern over hypotension and blood levels. She reports 1 week history of epigastric discomfort radiating to the chest. This has been associated with nausea, vomiting, and diarrhea. No blood in stool or dark tarry stools. No coffee-ground emesis. No history of GI bleeds. Saw PCP today who thought she may have an ulcer and given hypotension and pale mucous membranes referred her to emergency department. Intensity symptoms is moderate. Course has persisted. No other specific changes in health, exacerbating, or alleviating factors identified. Onset (ago): week(s) Pain Consistency: constant Location: Epigastric Severity: moderate Radiation: chest Associated Symptoms: Reports diarrhea, nausea and vomiting Review of Systems General: Reports: 10 or more systems reviewed and unremarkable except in HPI and below GI: Reports: nausea, vomiting and diarrhea [facility] PFSH: Medical History (Updated 04/05/22 @ 00:01 by ) Abdominal pain CAD (coronary artery disease) Angiogram in 2019?Occluded RCA with mild plaquing left system. Collaterals from left to occluded RCA. Cardiomyopathy Cholelithiasis Claudication of both lower extremities COPD (chronic obstructive pulmonary disease) Diabetes Hyperlipidemia Hypertension Thickening of wall of gallbladder Family History Denies family history of Anesthesia complication Bleeding disorder Social History Smoking and tobacco status: current every day smoker cigarettes Packs smoked per day: 1 Quit status (tobacco): has tried quititng Second hand smoke exposure: Yes Alcohol intake: never Adopted: No Caregiver/support person: Yes Lives independently: Yes Household members: family Housing: House Marital status: Highest education level completed: High School Graduate service: No Current occupational status: retired Current occupational exposures/hazards: No Pets and animals: No History of recent travel: No Sexually active: No Current gender identity: Female Janet/Protestant: Buddhism Special janet needs: No Agree to transfusion: No Financial difficulty paying for basics: Decline to Answer Physical Exam Const: COMMON NORMALS: alert GENERAL APPEARANCE: cooperative, well developed and ill appearing HENMT: COMMON NORMALS: normocephalic and atraumatic HEAD & SCALP: normocephalic and atraumatic THROAT: posterior oropharynx normal Eye: COMMON NORMALS: conjunctivae normal CONJUNCTIVA: Yes conjunctivae normal SCLERA: sclerae normal Neck/C-Spine: COMMON NORMALS: supple GENERAL: Yes trachea midline Resp: EFFORT & INSPECTION: Yes able to speak in complete sentences AUSCULTATION: diminished lung sounds Cardio: COMMON NORMALS: regular rate and regular rhythm RATE: regular rate RHYTHM: regular rhythm GI: COMMON NORMALS: Soft to palpation PALPATION: Yes Soft to palpation, Yes Tenderness to palpation present (GI), No Guarding due to palpation present (GI) and No Rigid due to palpation PERCUSSION: normal to percussion Extremity: GENERAL: Yes normal exam except as noted and No edema Neuro: COMMON NORMALS: moves all extremities SENSORIUM/ORIENTATION: Yes alert and No Orientation impaired Psych: COMMON NORMALS: mental status grossly normal and Normal thought process present THOUGHT PROCESS: Normal thought process present Course ED course: - Patient was seen and evaluated by me at bedside - Patient placed on cardiac monitors, IV access obtained - Initial evaluation notable for initial hypotension, fluids ordered - Labs personally interpreted by me. EKG notable for sinus rhythm with nonspecific ST segment normalities. 1st degree AV block. No STEMI. - Labs notable for leukocytosis, normocytic anemia. Metabolic panel with LES and evidence of dehydration. Additional fluids given. Urinalysis not concerning for urinary tract infection given squamous epithelial contamination. - Imaging notable for no acute pathology to explain patient's symptoms - Upon serial reexamination after treatment the patient was mildly improved . - Based on patient history, evaluation, and testing as interpreted the most likely cause of the patient's condition is LES of unclear etiology presenting with hypotension and dehydration - The results of ED evaluation were discussed with the patient including plan for admission due to requirement for level of care not available if discharged to prevent significant worsening/deterioration. - Admitting service was contacted and Dr Cleary with the hospitalist service agreed to admit the patient - Patient was admitted without further deterioration or significant events. Note: Click bubbles or prepopulated melara in note writing are used for assistance with data collection and billing and are inherently more limited than narrative and other text portions of this note. Please use narrative for additional clinical history and defer to narrative/free test for any case of contradictory information. If information appears in only free text or click bubble it should be considered present or absent as reported. Please contact note fiction writer for clarifications of clinical information or contradictory information. MDM is a brief summary, contradictory or erroneous seeming information should be clarified and full note should be reviewed. Vital Signs: Vital signs: Vital Signs Temperature 98.3 F 04/04/22 07:15 Pulse Rate 128 H 04/04/22 09:38 Respiratory Rate 20 H 04/04/22 09:38 Blood Pressure 99/59 04/04/22 07:15 Pulse Oximetry 94 04/04/22 09:38 MDM - Abdominal Pain Medical Decision Making 67-year-old lady presenting with abdominal pain. Patient found to have LES and dehydration. Admitted for further management. Medical Records I reviewed the patient's medical records. Lab Data I reviewed the patient's lab results. : 04/04/22 04:26 04/04/22 04:26 Labs/Radiology: Radiology Impressions Chest/Abdomen/Pelvis CT 04/02/22 18:14 IMPRESSION: 1. Negative for infiltrate. 2. Coronary artery atherosclerotic calcifications. 3. 13 mm nodule in the thyroid isthmus along with an additional nodule suspected in the right thyroid lobe, nonemergent thyroid ultrasound could further evaluate this. 4. Mild emphysematous changes suspected. IMPRESSION: 1. Negative for acute inflammatory process in the abdomen or pelvis. 2. Gallbladder wall calcification. 3. Right kidney punctate nonobstructing calyceal stone. Laboratory Results WBC 13.6 10^3/uL (4.0-10.0) H 04/02/22 17: RBC 4.00 10^6/uL (4.1-5.3) L 04/02/22 17:28 Hgb 10.9 g/dL (11.5-15.3) L 04/02/22 17:28 Hct 34.8 % (37.0-47.0) L 04/02/22 17:28 MCV 87.0 fl (81-99) 04/02/22 17:28 MCH 27.3 pg (28.0-34.0) L 04/02/22 17:28 MCHC 31.3 g/dL (30.0-36.0) 04/02/22 17: RDW 18.0 % (12.1-15.1) H 04/02/22 17: Plt Count 307 10^3/cmm (130-400) 04/02/22 17: MPV 9.9 fL (7.4-10.4) 04/02/22 17: Neut % (Auto) 66.8 % 04/02/22 17: Lymph % (Auto) 21.1 % 04/02/22: [place] % (Auto) 9.1 % 04/02/22 17: Eos % (Auto) 2.2 % 04/02/22: Baso % (Auto) 0.4 % 04/02/22: Neut # (Auto) 9.08 10^3/uL (1.8-7.7) H 04/02/22: Lymph # (Auto) 2.9 10^3/uL (0.8-4.8) 04/02/22: [place] # (Auto) 1.2 10^3/uL (0.2-0.9) H 04/02/22 17: Eos # (Auto) 0.3 10^3/uL (0.0-0.8) 04/02/22: Baso # (Auto) 0.1 10^3/uL (0.0-0.1) 04/02/22: Nucleated RBC % (auto) 0 % 04/02/22: Nucleated RBCs # 0.0 /100WBC 04/02/22: PT 14.50 SECONDS (12.1-14.9) 04/02/22 17: INR 1.09 (0.8-1.2) 04/02/22: APTT 32.0 SECONDS (23.9-36.7) 04/02/22: Sodium 134 mmol/L (136-145) L 04/02/22: Potassium 5.4 mmol/L (3.5-5.1) H 04/02/22 17: Chloride 99 mmol/L (98-107) 04/02/22: Carbon Dioxide 16 mmol/L (22-29) L 04/02/22 17: Anion Gap 24.4 (5-19) H 04/02/22 17:28 BUN 75 mg/dL (8-23) H 04/02/22 17:28 Creatinine 5.1 mg/dL (0.5-0.9) H 04/02/22 17:28 GFR Calculation 8.5 mL/min (90-130) L 04/02/22 17:28 Glucose 104 mg/dL (65-115) 04/02/22 17:28 Calculated Osmolality 301 mOsm/kg (285-295) H 04/02/22 17:28 Lactic Acid 1.2 mmol/L (0.5-2.2) 04/02/22 17:28 Calcium 9.1 mg/dL (8.5-10.5) 04/02/22 17:28 Iron 28 ug/dL (37-145) L 04/02/22 04:07 TIBC 273 mcg/dl 04/02/22 04:07 % Saturation 10.2 % (20-50) L 04/02/22 04:07 Unsat Iron Binding 245 ug/dL (112-347) 04/02/22 04:07 Total Bilirubin 0.2 mg/dL (0.15-1.2) 04/02/22 17:28 AST 9 U/L (0-32) 04/02/22 17:28 ALT < 5 U/L (0-33) 04/02/22 17:28 Alkaline Phosphatase 92 IU/L (35-105) 04/02/22 17:28 Creatine Kinase 40 U/L (26-192) 04/02/22 17:28 NT-Pro-B Natriuret Pep 747 pg/mL (0-125) H 04/02/22 17:28 Total Protein 7.9 g/dL (6.6-8.7) 04/02/22 17:28 Albumin 4.6 g/dL (3.5-5.2) 04/02/22 17:28 Globulin 3.3 g/dL (1.3-4.6) 04/02/22 17:28 Lipase 32 U/L (13-60) 04/02/22 17:28 Vitamin B12 277 pg/mL (232-1245) 04/02/22 04:07 Folate 8.7 ng/mL (4.8-37.3) 04/02/22 17:28 TSH 0.51 uIU/mL (0.27-4.20) 04/02/22 17:28 Hepatitis A IgM Ab Non-reactive (Nonreactive) 04/02/22: Hep Bs Antigen Non-reactive (Nonreactive) 04/02/22: Hep Bs Antibody < 3.5 (11.5-1000) L 04/02/22 17: Hep B Core Total Ab Non-reactive (Nonreactive) 04/02/22: Hepatitis C Antibody Non-reactive (Nonreactive) 04/02/22: Blood Type O Positive 04/02/22: Rho(D) Type Positive 04/02/22: Antibody Screen Negative 04/02/22: Critical Care Time Critical Care Time: Critical Care Time: Yes Total Critical Care Time: 35 Attestation: The high probability of a clinically significant, sudden or life threatening deterioration of the patient's renal/cardiovascular system(s) required my full and direct attention, intervention and personal management. The critical care time is as shown. This time is in addition to time spent performing any reported procedures but includes the following: [x] Data and vital sign review and interpretation [x] Patient assessment, examination and intervention [x] Documentation [x] Medication orders and management Discharge Plan Discharge Patient Disposition: Admitted As Inpatient Admit Provider: Susie Cleary Clinical Impression: Abdominal pain, Nausea vomiting and diarrhea, Leukocytosis, LES (acute kidney injury), Hypotension Condition: Stable Discharge Diet: Regular and Cardiac Discharge Activity: Resume usual activity and Increase activity as tolerated Coding Level of Care Code ED Cardiovascular Lab Director for Shruti Olvera
[2022-04-02 17:47] LABS: Basophils # 0.1 10^3/uL (0.0-0.1); Basophils % 0.4 %; Eosinophils # 0.3 10^3/uL (0.0-0.8); Eosinophils % 2.2 %; Hematocrit 34.8 % (37.0-47.0); Hemoglobin 10.9 g/dL (11.5-15.3); Lymphocytes # 2.9 10^3/uL (0.8-4.8); Lymphocytes % 21.1 %; Mean Corpuscular HGB Conc 31.3 g/dL (30.0-36.0); Mean Corpuscular Hemoglobin 27.3 pg (28.0-34.0); Mean Platelet Volume 9.9 fL (7.4-10.4); Monocytes # 1.2 10^3/uL (0.2-0.9); Monocytes % 9.1 %; Neutrophils # 9.08 10^3/uL (1.8-7.7); Neutrophils % 66.8 %; Nucleated Red Blood Cells % 0 %; Platelet Count 307 10^3/cmm (130-400); White Blood Count 13.6 10^3/uL (4.0-10.0)
[2022-04-02 17:59] LABS: INR 1.09 (0.8-1.2)
[2022-04-02] MEDS: sodium chloride 0.9% 1,000 ML 999 ML IV ×2 (18:00→20:34)
[2022-04-02 18:09] LABS: Lactic Sepsis W/Reflex 1.2 mmol/L (0.5-2.2)
--- NOTE | 2022-04-02 18:14 | CTR_ITS ---
PROCEDURE INFORMATION: Exam: CT Chest Without Contrast; Diagnostic Exam date and time: 04/02/2022 6:45 PM Age: 66 years old Clinical indication: Abdominal pain; Epigastric; Sternal or substernal pain; Patient HX: CR 5.1 C/O upper abd pain w n/v; Additional info: Hypotension, epigastric/chest pain TECHNIQUE: Imaging protocol: Diagnostic computed tomography of the chest without contrast. Radiation optimization: All CT scans at this facility use at least one of these dose optimization techniques: automated exposure control; mA and/or kV adjustment per patient size (includes targeted exams where dose is matched to clinical indication); or iterative reconstruction. COMPARISON: CT chest wo con [id number] 08/30/2019 5:40 PM RADIATION DOSE METRICS: Total DLP (mGy-cm): 1322.68 FINDINGS: Thyroid: 13 mm nodule in the thyroid isthmus along with an additional nodule suspected in the right thyroid lobe, nonemergent thyroid ultrasound could further evaluate this. Lungs: Mild emphysematous changes suspected. Pleural spaces: Unremarkable. No pneumothorax. No pleural effusion. Heart: Coronary artery atherosclerotic calcifications. Lymph nodes: Unremarkable. No enlarged lymph nodes. Vasculature: Unremarkable. No aortic aneurysm. Bones/joints: Unremarkable. No acute fracture. Soft tissues: Unremarkable. COMMENTS: Consistent with the [employer]'s Incidental Findings Committee white paper (J Am Lynette Radiol 2015): In patients aged 35 years and older with an incidental thyroid nodule equal to or greater than 1.[address], MRI or extrathyroidal US, further evaluation with dedicated thyroid US is recommended for patients with normal life expectancy and without comorbidities. For smaller nodules without suspicious features, no further evaluation or follow up is recommended. PROCEDURE INFORMATION: Exam: CT Abdomen And Pelvis Without Contrast Exam date and time: 04/02/2022 6:45 PM Age: 66 years old Clinical indication: Abdominal pain; Epigastric; Sternal or substernal pain; Patient HX: CR 5.1 C/O upper abd pain w n/v; Additional info: Hypotension, epigastric/chest pain TECHNIQUE: Imaging protocol: Computed tomography of the abdomen and pelvis without contrast. Radiation optimization: All CT scans at this facility use at least one of these dose optimization techniques: automated exposure control; mA and/or kV adjustment per patient size (includes targeted exams where dose is matched to clinical indication); or iterative reconstruction. COMPARISON: CT abdomen pelvis wo con [id number] 03/07/2022 12:15 PM RADIATION DOSE METRICS: Total DLP (mGy-cm): 1322.68 FINDINGS: Liver: Normal. No mass. Gallbladder and bile ducts: Gallbladder wall calcification. Pancreas: Normal. No ductal dilation. Spleen: Normal. No splenomegaly. Adrenal glands: Normal. No mass. Kidneys and ureters: Right kidney punctate nonobstructing calyceal stone. Stomach and bowel: Unremarkable. No obstruction. No mucosal thickening. Appendix: No evidence of appendicitis. Intraperitoneal space: Unremarkable. No free air. No significant fluid collection. Vasculature: Unremarkable. No abdominal aortic aneurysm. Lymph nodes: Unremarkable. No enlarged lymph nodes. Urinary bladder: Unremarkable as visualized. Reproductive: Unremarkable as visualized. Bones/joints: Right 9th and 10th anterolateral likely chronic rib fractures. Soft tissues: Unremarkable. CT/[place] [id number] IMPRESSION: 1. Negative for infiltrate. 2. Coronary artery atherosclerotic calcifications. 3. 13 mm nodule in the thyroid isthmus along with an additional nodule suspected in the right thyroid lobe, nonemergent thyroid ultrasound could further evaluate this. 4. Mild emphysematous changes suspected. IMPRESSION: 1. Negative for acute inflammatory process in the abdomen or pelvis. 2. Gallbladder wall calcification. 3. Right kidney punctate nonobstructing calyceal stone.
[2022-04-02 18:19] VITALS: BP 108/65; PULSE 59; RESP 15; O2SAT 98
[2022-04-02 18:19] LABS: Alanine Aminotransferase < 5 U/L (0-33); Albumin Level 4.6 g/dL (3.5-5.2); Alkaline Phosphatase 92 IU/L (35-105); Anion Gap 24.4 (5-19); Aspartate Amino Transferase 9 U/L (0-32); Blood Urea Nitrogen 75 mg/dL (8-23); Calcium 9.1 mg/dL (8.5-10.5); Carbon Dioxide 16 mmol/L (22-29); Chloride 99 mmol/L (98-107); Globulin 3.3 g/dL (1.3-4.6); Glomerular Filtration Rate 8.5 mL/min (90-130); Glucose 104 mg/dL (65-115); Lipase 32 U/L (13-60); NT Pro B Type Natriuretic Pept 747 pg/mL (0-125); Osmolality Calculated 301 mOsm/kg (285-295); Potassium 5.4 mmol/L (3.5-5.1); Sodium 134 mmol/L (136-145); Thyroid Stimulating Hormone 0.51 uIU/mL (0.27-4.20); Total Bilirubin 0.2 mg/dL (0.15-1.2); Total Protein 7.9 g/dL (6.6-8.7)
[2022-04-02] MEDS: ondansetron 2 mg/ML SDV 2 mL 4 MG IVP (19:53)
--- NOTE | 2022-04-02 20:15 | ECG_ITS ---
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 Measurements Intervals [place] Rate: 60 P: 82 OK: 201 QRS: 45 QRSD: 107 T: 13 QT: 435 QTc: 437 Interpretive Statements SINUS RHYTHM LOW QRS VOLTAGE IN PRECORDIAL LEADS [QRS DEFLECTION < 1.0 mV IN CHEST LEADS] MODERATE T-WAVE ABNORMALITY, CONSIDER INFERIOR ISCHEMIA [-0.1+ mV T WAVE IN II/aVF] Compared to ECG 03/07/2022 12:31:46 T-wave abnormality now present Possible ischemia now present Sinus arrhythmia no longer present First degree AV block no longer present Myocardial infarct finding no longer present Electronically Signed On 04-05-2022 17:55:42 CDT by Zach Reece M.D. [id number]
[2022-04-02 20:34] LABS: Creatine Phosphokinase 40 U/L (26-192)
[2022-04-02 20:37] VITALS: BP 90/76; PULSE 65; RESP 18; O2SAT 100
[2022-04-02 20:59] VITALS: BP 98/42; PULSE 82; RESP 18; TEMP 36.8; O2SAT 96
[2022-04-02 21:06] LABS: Add Urine Microscopic? YES; Bilirubin Urine 1+ (Negative); Blood Urine Neg (Negative); Glucose Urine UA Norm (Normal); Ketones Urine Negative (Negative); Leukocyte Esterase Urine Trace (Negative); Nitrate Urine Negative (Negative); Protein Urine Neg (Negative); Urine Appearance Hazy (CLEAR); Urine Color Yellow (Yellow); Urobilinogen Urine Norm (Negative); pH Urine 5 (5-7)
[2022-04-02 21:07] LABS: Add Urine Culture? No; Bacteria Urine 2+ /hpf; Mucus Urine TRACE /hpf; RBC Urine 0-4 /hpf (0-2); Squamous Epithelial Cell Urine 15-25 /hpf (0-5)
--- NOTE | 2022-04-02 22:15 | ECG_ITS ---
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 Measurements Intervals [place] Rate: 60 P: 82 SC: 205 QRS: 41 QRSD: 101 T: 26 QT: 433 QTc: 433 Interpretive Statements SINUS RHYTHM POSSIBLE ANTERIOR MYOCARDIAL INFARCTION , PROBABLY OLD [30 ms Q WAVE IN V3/V4, OR R < 0.2 mV IN V4] MODERATE T-WAVE ABNORMALITY, CONSIDER INFERIOR ISCHEMIA [-0.1+ mV T-WAVE IN II/aVF] Compared to ECG 04/02/2022 20:48:48 Myocardial infarct finding now present T-wave abnormality still present Possible ischemia still present Electronically Signed On 04-05-2022 18:19:15 CDT by Zach Reece M.D. [id number]
[2022-04-02 22:48] LABS: Troponin(5th) Baseline 26 ng/L (0-10)
[2022-04-02 23:36] VITALS: BP 85/45; PULSE 64; RESP 18; TEMP 36.9; O2SAT 93
[2022-04-02 23:45] VITALS: BP 96/74; PULSE 69
--- NOTE | 2022-04-02 23:47 | P.HP_ITS ---
Providers/Chief Complaint Admitting Physician: Susie Cleary MD Primary Care Provider: Willow Foreman APN Chief Complaint: low on blood History of Present Illness Shannan Cisneros is a 66 year old female with a past medical history of hypertension, cardiomyopathy, ejection fraction improved from 10 to 30% as of 2019, follows with cardiology. She went to her primary care provider today for routine follow-up however there she was noted to have a low blood pressure of 80/70 per her description and also noted to be pale so her primary care physician sent her over to the ER. On work-up she was found to have LES with creatinine up to 5.1 and hyperkalemia. Patient is not very forthcoming with her history. At this time she is annoyed that I woke her up by turning on the room light. She is alert awake and oriented however visibly annoyed and does not want to answer historical questions. She keeps putting the sheets over her head. She states that she gave all the information in the ER and is not willing to answer any other questions at this time. She did tell me that she has been vomiting over the past week whenever her acid reflux acts up unable to tell me how much she has been vomiting etc. She wants me to leave the room and come back at a later time which is more per her convenience. I have counselled her that without an appropriate history, it is going ot be extremely challenging for me to order further diagnostic work up and ascertain a cause for her illness. She declines to respond with sheets over her head. Medications/Allergies Home Medications Medication Instructions Recorded Confirmed Last Taken Type atorvastatin 40 mg tablet 40 mg PO BEDTIME 09/23/19 04/02/22 04/01/22 History fluticasone 100 mcg-salmeterol 50 1 puff INHALATION BID 09/23/19 04/02/22 04/02/22 History mcg/dose blistr powdr for inhalation (Advair Diskus) metformin 500 mg tablet 1,000 mg PO BID 09/23/19 04/02/22 04/02/22 History lisinopril 20 mg tablet 20 mg PO BID #180 tab 06/12/21 04/02/22 04/02/22 Rx furosemide 20 mg tablet 20 mg PO DAILY PRN 10/20/21 04/02/22 Unknown History potassium chloride 10 mEq 10 meq PO DAILY PRN 10/20/21 10/20/21 Unknown History tablet,extended release(part/cryst) aspirin 325 mg tablet 325 mg PO DAILY 04/02/22 04/02/22 04/02/22 History carvedilol 3.125 mg tablet 3.125 mg PO BID 04/02/22 04/02/22 04/02/22 History spironolactone 25 mg tablet 25 mg PO DAILY 04/02/22 04/02/22 04/02/22 History Allergies Allergy/AdvReac Type Severity Reaction Status Date / Time No Known Drug Allergies Allergy Unknown Verified 10/20/21 10:44 PFSH Acute PFSH: Medical History Abdominal pain CAD (coronary artery disease) Cardiomyopathy Cholelithiasis Claudication of both lower extremities COPD (chronic obstructive pulmonary disease) Diabetes Hyperlipidemia Hypertension Thickening of wall of gallbladder Family History Denies family history of Anesthesia complication Bleeding disorder Social History Smoking and tobacco status: current every day smoker cigarettes Packs smoked per day: 1 Quit status (tobacco): has tried quititng Second hand smoke exposure: Yes Alcohol intake: never Adopted: No Caregiver/support person: Yes Lives independently: Yes Household members: family Housing: House Marital status: Highest education level completed: High School Graduate service: No Current occupational status: retired Current occupational exposures/hazards: No Pets and animals: No History of recent travel: No Sexually active: No Current gender identity: Female Janet/Gnosticist: Amish Special janet needs: No Agree to transfusion: No Financial difficulty paying for basics: Decline to Answer Vitals/I&O/Wt Last Vital Signs Temp 98.5 F 04/02/22 23:36 Pulse 64 04/02/22 23:36 Resp 18 04/02/22 23:36 BP 85/45 04/02/22 23:36 Pulse Ox 93 04/02/22 23:36 04/02/22 04/02/22 04/03/22 14:59 22:59 06:59 Intake Total 1999 Balance 1999 Weight last 48 hrs Weight 70.76 kg Physical Exam Narrative: GEN: Awake, alert and oriented, no acute distress , lying comfortable in bed, DID not permit any examination Data : 04/02/22 17:28 04/02/22 17:28 Other Labs: Radiology Impressions Chest/Abdomen/Pelvis CT 04/02/22 18:14 IMPRESSION: 1. Negative for infiltrate. 2. Coronary artery atherosclerotic calcifications. 3. 13 mm nodule in the thyroid isthmus along with an additional nodule suspected in the right thyroid lobe, nonemergent thyroid ultrasound could further evaluate this. 4. Mild emphysematous changes suspected. IMPRESSION: 1. Negative for acute inflammatory process in the abdomen or pelvis. 2. Gallbladder wall calcification. 3. Right kidney punctate nonobstructing calyceal stone. Laboratory Results WBC 13.6 10^3/uL (4.0-10.0) H 04/02/22 17: RBC 4.00 10^6/uL (4.1-5.3) L 04/02/22 17: Hgb 10.9 g/dL (11.5-15.3) L 04/02/22 17: Hct 34.8 % (37.0-47.0) L 04/02/22 17: MCV 87.0 fl (81-99) 04/02/22 17: MCH 27.3 pg (28.0-34.0) L 04/02/22 17: MCHC 31.3 g/dL (30.0-36.0) 04/02/22 17: RDW 18.0 % (12.1-15.1) H 04/02/22 17: Plt Count 307 10^3/cmm (130-400) 04/02/22: MPV 9.9 fL (7.4-10.4) 04/02/22 17: Neut % (Auto) 66.8 % 04/02/22 17: Lymph % (Auto) 21.1 % 04/02/22 17: [place] % (Auto) 9.1 % 04/02/22 17: Eos % (Auto) 2.2 % 04/02/22 17: Baso % (Auto) 0.4 % 04/02/22 17: Neut # (Auto) 9.08 10^3/uL (1.8-7.7) H 04/02/22 17:28 Lymph # (Auto) 2.9 10^3/uL (0.8-4.8) 04/02/22 17: [place] # (Auto) 1.2 10^3/uL (0.2-0.9) H 04/02/22 17: Eos # (Auto) 0.3 10^3/uL (0.0-0.8) 04/02/22: Baso # (Auto) 0.1 10^3/uL (0.0-0.1) 04/02/22 17: Nucleated RBC % (auto) 0 % 04/02/22: Nucleated RBCs # 0.0 /100WBC 04/02/22: PT 14.50 SECONDS (12.1-14.9) 04/02/22: INR 1.09 (0.8-1.2) 04/02/22: APTT 32.0 SECONDS (23.9-36.7) 04/02/22 17: Sodium 134 mmol/L (136-145) L 04/02/22 17: Potassium 5.4 mmol/L (3.5-5.1) H 04/02/22: Chloride 99 mmol/L (98-107) 04/02/22: Carbon Dioxide 16 mmol/L (22-29) L 04/02/22: Anion Gap 24.4 (5-19) H 04/02/22: BUN 75 mg/dL (8-23) H 04/02/22: Creatinine 5.1 mg/dL (0.5-0.9) H 04/02/22 17: GFR Calculation 8.5 mL/min (90-130) L 04/02/22 17: Glucose 104 mg/dL (65-115) 04/02/22: Calculated Osmolality 301 mOsm/kg (285-295) H 04/02/22: Lactic Acid 1.2 mmol/L (0.5-2.2) 04/02/22: Calcium 9.1 mg/dL (8.5-10.5) 04/02/22: Total Bilirubin 0.2 mg/dL (0.15-1.2) 04/02/22 17:28 AST 9 U/L (0-32) 04/02/22 17:28 ALT < 5 U/L (0-33) 04/02/22 17:28 Alkaline Phosphatase 92 IU/L (35-105) 04/02/22 17:28 Creatine Kinase 40 U/L (26-192) 04/02/22 17:28 Troponin T Baseline 26 ng/L (0-10) H 04/02/22 21:39 NT-Pro-B Natriuret Pep 747 pg/mL (0-125) H 04/02/22 17:28 Total Protein 7.9 g/dL (6.6-8.7) 04/02/22 17: Albumin 4.6 g/dL (3.5-5.2) 04/02/22 17: Globulin 3.3 g/dL (1.3-4.6) 04/02/22 17: Lipase 32 U/L (13-60) 04/02/22 17: TSH 0.51 uIU/mL (0.27-4.20) 04/02/22 17:28 Urine Color Yellow (Yellow) 04/02/22 20:48 Urine Appearance Hazy (CLEAR) A 04/02/22 20:48 Urine pH 5 (5-7) 04/02/22 20:48 Ur Specific [place] 1.020 (1.005-1.030) 04/02/22 20:48 Urine Protein Neg (Negative) 04/02/22 20:48 Urine Glucose (UA) Norm (Normal) 04/02/22 20:48 Urine Ketones Negative (Negative) 04/02/22 20:48 Urine Blood Neg (Negative) 04/02/22 20:48 Urine Nitrate Negative (Negative) 04/02/22 20:48 Urine Bilirubin 1+ (Negative) H 04/02/22 20:48 Urine Urobilinogen Norm mg/dL (Negative) 04/02/22 20:48 Ur Leukocyte Esterase Trace (Negative) H 04/02/22 20:48 Urine RBC 0-4 /hpf (0-2) H 04/02/22 20:48 Urine WBC 5-10 /hpf (0-5) H 04/02/22 20:48 Ur Squamous Epith Cells 15-25 /hpf (0-5) H 04/02/22 20:48 Amorphous Sediment Not Reportable 04/02/22 20:48 Urine Bacteria 2+ /hpf (NONE) H 04/02/22 20:48 Urine Mucus Trace /hpf 04/02/22 20:48 Blood Type O Positive 04/02/22 17:28 Rho(D) Type Positive 04/02/22 17:28 Antibody Screen Negative 04/02/22 17:28 Micro: Microbiology 04/02/22 17:37 Blood Culture - Preliminary Blood SPECIMEN COLLECTED 04/02/22 17:28 Blood Culture - Preliminary Blood SPECIMEN COLLECTED A&P Assessment and plan (1) LES (acute kidney injury): cr up to 5.1 which is new compared to baseline. per history obtaine dby ERP and review of prior records, patient has had issues with nausea vomiting and diarrhea which may potentially explain her hypotension and LES. I am unable to ascertain any other details at this point in time. Currently blood pressure noted to be 85/45. Denied any lightheadedness earlier. Will hold medications including lisinopril, furosemide, carvedilol and spironolactone. Check orthostatics Check urine lites urine creatinine. UA negative blood, not a clean-catch. IV hydration with normal saline at 75 cc an hour. Repeat potassium and creatinine with a.m. labs. CT of the abdomen pelvis with out any obstructive process. Status: Acute (2) Hypotension: May be related to polypharmacy and multiple medications. Holding lisinopril, furosemide, spironolactone at this time. Check orthostatics. Status: Acute (3) Hyperkalemia: Hyperkalemia at 5.4. Insulin dextrose given. Recheck potassium with a.m. labs. Status: Acute Attestations Medical Necessity Statement*: Anticipate greater than 2 midnight admission for evaluation and management of acute kidney injury, IV fluids Coding Level of Care Code Acute Information Strategist for [facility] Diagnoses LES (acute kidney injury) N17.9 Hypotension I95.9 Hyperkalemia E87.5
[2022-04-03] VITALS (8 sets, daily range): BP systolic 95–111; BP diastolic 39–74; PULSE 53–69; RESP 16–18; TEMP 36.2–37; O2SAT 92–99
[2022-04-03 00:11] LABS: Troponin 5 2HR 25.14 ng/L (0-10)
[2022-04-03 00:12] LABS: Troponin 5 2HR Delta -0.86 ABS# (0-10)
[2022-04-03] MEDS: sodium chloride 0.9% 1,000 ML 75 ML IV (00:20)
[2022-04-03] MEDS: insulin regular-human 10 UNIT in SYRINGE 1 EACH IVP (00:29)
[2022-04-03] MEDS: dextrose 50% syringe 50 mL IVP (00:29)
[2022-04-03 00:30] LABS: Glucose Point of Care 151 mg/dL (70-110)
[2022-04-03 01:31] LABS: Potassium, Radom Urine 23 mmol/L; Urine Creatinine 127 mg/dL (28-217); Urine Random Sodium 62 mmol/L
[2022-04-03 01:38] LABS: Urine Random Chloride 17 mmol/L
--- NOTE | 2022-04-03 02:15 | ECG_ITS ---
[facility] Test Date: 2022-04-03 Pat Name: Shannan Cisneros Department: Room: 250 Gender: Female Senior [address] Sql Developer: : 1955 Requested By: Darrel Vargas Order Number: [id number] Mellissa MD: Zach Reece M.D. Measurements Intervals [place] Rate: 63 P: 83 LA: 200 QRS: 42 QRSD: 102 T: 63 QT: 422 QTc: 433 Interpretive Statements SINUS RHYTHM LOW QRS VOLTAGE IN PRECORDIAL LEADS [QRS DEFLECTION < 1.0 mV IN CHEST LEADS] POSSIBLE ANTERIOR MYOCARDIAL INFARCTION , PROBABLY OLD [30 ms Q WAVE IN V3/V4, OR R < 0.2 mV IN V4] Compared to ECG 04/02/2022 22:10:48 Low QRS voltage now present T-wave abnormality no longer present Possible ischemia no longer present Myocardial infarct finding still present Electronically Signed On 04-05-2022 18:17:39 CDT by Zach Reece M.D. [id number]
[2022-04-03 04:38] LABS: Basophils # 0.1 10^3/uL (0.0-0.1); Basophils % 0.4 %; Eosinophils # 0.3 10^3/uL (0.0-0.8); Eosinophils % 2.4 %; Hematocrit 29.4 % (37.0-47.0); Hemoglobin 9.1 g/dL (11.5-15.3); Lymphocytes # 2.9 10^3/uL (0.8-4.8); Lymphocytes % 25.6 %; Mean Corpuscular Hemoglobin 26.9 pg (28.0-34.0); Neutrophils # 7.09 10^3/uL (1.8-7.7); Neutrophils % 62.1 %; Nucleated Red Blood Cells % 0 %; Platelet Count 260 10^3/cmm (130-400); Red Blood Count 3.38 10^6/uL (4.1-5.3); Red Cell Distribution Width 17.9 % (12.1-15.1); White Blood Count 11.4 10^3/uL (4.0-10.0)
[2022-04-03 04:57] LABS: Alanine Aminotransferase < 5 U/L (0-33); Albumin Level 3.8 g/dL (3.5-5.2); Alkaline Phosphatase 85 IU/L (35-105); Anion Gap 16.7 (5-19); Aspartate Amino Transferase 7 U/L (0-32); Blood Urea Nitrogen 62 mg/dL (8-23); Calcium 8.1 mg/dL (8.5-10.5); Carbon Dioxide 17 mmol/L (22-29); Chloride 110 mmol/L (98-107); Globulin 2.4 g/dL (1.3-4.6); Glomerular Filtration Rate 16.2 mL/min (90-130); Glucose 113 mg/dL (65-115); Osmolality Calculated 306 mOsm/kg (285-295); Potassium 4.7 mmol/L (3.5-5.1); Sodium 139 mmol/L (136-145); Total Bilirubin 0.2 mg/dL (0.15-1.2); Total Protein 6.2 g/dL (6.6-8.7)
[2022-04-03 05:00] LABS: Troponin 5 6HR 28.27 ng/L (0-10)
[2022-04-03 05:10] LABS: Troponin 5 6HR Delta 2.27 ng/L (0-12)
[2022-04-03 05:16] LABS: Estmated Average Glucose 157; Hemoglobin A1C 7.1 % (4.0-6.0)
[2022-04-03 06:32] LABS: Glucose Point of Care 150 mg/dL (70-110)
[2022-04-03] MEDS: heparin 5,000 unit/mL INJ 1 mL 5000 UNIT SUBCUT ×2 (06:38→16:50)
[2022-04-03] MEDS: pantoprazole DR 40 mg Tablet PO (09:37)
[2022-04-03] MEDS: aspirin 325 mg Tablet PO (09:37)
[2022-04-03 10:06] LABS: Iron 28 ug/dL (37-145); NT Pro B Type Natriuretic Pept 576 pg/mL (0-125); Percent Saturation 10.2 % (20-50); Total Iron Binding Capacity 273 mcg/dl; Unsaturated Iron Binding 245 ug/dL (112-347); Vitamin B12 277 pg/mL (232-1245)
[2022-04-03 10:08] LABS: Folate Level 8.7 ng/mL (4.8-37.3)
[2022-04-03 11:36] LABS: Hepatitis A Antibody IgM Non-Reactive (Nonreactive); Hepatitis B Core AB, Total Non-Reactive (Nonreactive); Hepatitis B Surface Antigen Non-Reactive (Nonreactive); Hepatitis C Virus Antibody Non-Reactive (Nonreactive)
[2022-04-03 11:37] LABS: Hepatitis B Surface AB < 3.5 (11.5-1000)
--- NOTE | 2022-04-03 13:28 | P.PN_ITS ---
Subjective Subjective: Admitted overnight. Today morning seen with family at bedside. Denies any nausea vomiting, headache. Denies any shortness of breath. Saturating well on room air. Blood pressures soft but stable with mean artery pressure over 65. Vitals/I&O/Wt Last Vital Signs Temp 97.4 F L 04/03/22 11:42 Pulse 53 L 04/03/22 11:42 Resp 16 04/03/22 11:42 BP 95/56 04/03/22 11:42 Pulse Ox 99 04/03/22 11:42 04/02/22 04/03/22 04/03/22 22:59 06:59 14:59 Intake Total 1999 0.1 / 1999.1 120 / 120 Output Total 150 / 150 Balance 1999 -149.9 / 1850.1 120 / 120 Weight last 48 hrs Weight 70.76 kg Physical Exam Narrative: General: No acute distress, AO x3, dehydrated, pallor present HEENT: PERRLA, pupils bilaterally equal and reactive Chest: Normal vesicular breath sounds, no added sounds, equal good air entry bilaterally CVS: S1-S2 regular, no murmurs, no tachycardia, no gallops, no rubs Abdomen: Soft, nontender, no organomegaly, bowel sounds present Neuro: No focal deficits, no facial deformity, AO x3, power 5/5 in all limbs Data : 04/03/22 04:07 04/03/22 04:07 Micro: Microbiology 04/02/22 17:37 Blood Culture - Preliminary Blood SPECIMEN COLLECTED 04/02/22 17:28 Blood Culture - Preliminary Blood SPECIMEN COLLECTED A&P Assessment and plan (1) LES (acute kidney injury): Most likely secondary to dehydration, low blood pressures and multiple medications. Creatinine improving. Down to around 2. Continue with normal saline at 75 cc/h. Monitor for fluid overload. Medical reconciliation done for nephrotoxic drugs. Hold off on a ntihypertensives for now. Urine lites and creatinine appreciated. Fena-1.8% consistent with intrinsic. CT abdomen pelvis rule out obstructive nephropathy. Bray catheterization for strict input output charting. Mild anion gap acidosis. Start on sodium bicarbonate 650 mg 3 times daily. Monitor BMP daily. Status: Acute (2) Hypotension: May be related to polypharmacy and multiple medications. Holding lisinopril, furosemide, Coreg, spironolactone at this time. Check orthostatics. Goal blood pressure less than 140/90 mmHg with mean over 65 mmHg. Status: Acute (3) Hyperkalemia: Resolved. Monitor BMP daily. Status: Acute (4) Diabetes: Insulin sliding scale. Carbohydrate consistent diet. Check A1c. Status: Acute Qualifiers: Diabetes mellitus type: type 2 Diabetes mellitus long term care administrator insulin use: without senior living use Diabetes mellitus complication status: without complication Qualified Code(s): E11.9 - Type 2 diabetes mellitus without complications (5) Cardiomyopathy: Last echocardiogram showed an EF of 35 to 40% which has been improving. Repeat echocardiogram. Hold off on antibiotics for now. No signs of congestive heart failure for now. Status: Acute Qualifiers: Cardiomyopathy type: dilated Qualified Code(s): I42.0 - Dilated cardiomyopathy (6) CAD (coronary artery disease): No active chest pain. Check A1c, lipid panel. Continue with statin, aspirin. Status: Acute Qualifiers: Coronary Disease-Associated Artery/Lesion type: [place] artery [place] vs. transplanted heart: [place] heart Associated angina: without angina Qualified Code(s): I25.10 - Atherosclerotic heart disease of [place] coronary artery without angina pectoris Plan Analgesia: Tylenol as needed Glycemic control: Low-dose insulin sliding scale. Nutrition: Renal nondialysis carb consistent diet CODE STATUS: Full code all of PUD prophylaxis: Protonix DVT prophylaxis: Heparin 5000 every 12 hourly. Continue MedSurg care. Attestations Medical Necessity Statement*: Requires further hospitalization for management of LES, low blood pressures in setting of ischemic cardiomyopathy Time Spent in Patient Care: Greater than 35 minutes Coding Level of Care Code Acute Bandage Maker for [facility] Diagnoses LES (acute kidney injury) N17.9 Hypotension I95.9 Hyperkalemia E87.5 Diabetes E11.9 Diabetes mellitus type: type 2 Diabetes mellitus senior living insulin use: without senior living use Diabetes mellitus complication status: without complication Cardiomyopathy I42.0 Cardiomyopathy type: dilated CAD (coronary artery disease) I25.10 Coronary Disease-Associated Artery/Lesion type: [place] artery [place] vs. transplanted heart: [place] heart Associated angina: without angina
[2022-04-03] MEDS: ferrous gluconate 324 mg Tablet PO (16:49)
[2022-04-03] MEDS: sodium bicarbonate 650 mg Tablet PO ×2 (16:50→20:20)
[2022-04-03 17:25] LABS: Glucose Point of Care 152 mg/dL (70-110)
[2022-04-03] MEDS: atorvastatin 40 mg Tablet PO (20:20)
--- NOTE | 2022-04-03 23:25 | PC.NURSE ---
patient is refusing f/c and is using hat appropriately to measure urine
--- NOTE | 2022-04-03 23:44 | USCV_ITS ---
Shannan Cisneros Age: 66 Gender: F : 1955 Exam Date: 04/03/2022 02:16 Ordering Phys: Susie Cleary MD Technologist: Willam Gomez [place] [facility] [place]: known cardiomyopathy, now with filiberto , evaluate for interval worsening BP: 85 / 45 HR: 58 Rhythm: Sinus Technical Quality: Adequate MEASUREMENTS (Male / Female) Normal Values 2D ECHO LV Diastolic Diameter PLAX 4.9 cm 4.2 - 5.9 / 3.9 - 5.3 cm LV Systolic Diameter PLAX 4.3 cm IVS Diastolic Thickness 1.7 cm 0.6 - 1.0 / 0.6 - 0.9 cm IVS Systolic Thickness 1.7 cm LVPW Diastolic Thickness 1.4 cm 0.6 - 1.0 / 0.6 - 0.9 cm LVPW Systolic Thickness 1.2 cm LVOT Diameter 2.0 cm LV Ejection Fraction 2D Teich 32.2 % LV Ejection Fraction MOD 2C 23.9 % LV Ejection Fraction 2C AL 29.9 % LA Diameter 3.5 cm LA Width 3.8 cm LA Height 4.0 cm RA Width 4.1 cm RA Height 3.3 cm Aorta at Sinotubular Diameter 3.0 cm IVC Diameter 1.6 cm M-MODE Aortic Annulus Diameter 3.1 cm LA Ao Ratio MM 1.3 MV E Point Septal Separation 1.2 cm DOPPLER AV Peak Velocity 150.5 cm/s MV Area PHT 3.5 cm squared Mitral E to A Ratio 0.7 MV E' Velocity 46.5 cm/s Mitral E to MV E' Ratio 9.5 Mitral E to LV E' Lateral Ratio 9.3 Mitral E to LV E' Septal Ratio 9.8 TR Peak Velocity 206.7 cm/s TR Peak Gradient 17.1 mmHg TR Mean Velocity 149.9 cm/s TR Mean Gradient 10.5 mmHg TR Velocity Time Integral 68.6 cm Right Atrial Pressure 3.0 mmHg Pulmonary Artery Systolic Pressu 20.1 mmHg PV Peak Velocity 142.0 cm/s FINDINGS Left Ventricle Normal left ventricular size. LV systolic function is mildly reduced with EF of 40-45%. Mild global hypokinesis. Grade 1 diastolic dysfunction Right Ventricle The right ventricle is normal in size and function. Right Atrium The right atrium is normal in size. Left Atrium The left atrium is normal in size. Mitral Valve Structurally normal mitral valve without significant stenosis or prolapse. There is trace mitral regurgitation. Aortic Valve Thickened aortic valve without significant stenosis. There is mild aortic regurgitation. Tricuspid Valve Structurally normal tricuspid valve without significant stenosis. Trace tricuspid regurgitation. Insufficient TR jet to calculate RVSP Pulmonic Valve Not well visualized Pericardium Normal pericardium without effusion. Aorta Normal ascending aorta dimension. IVC CONCLUSIONS LV systolic function is mildly reduced with EF 40-45%. Mild global hypokinesis Grade 1 diastolic dysfunction. Trace mitral regurgitation. Mild aortic regurgitation. Trace tricuspid regurgitation. Compared to prior echocardiogram from 02/08/2020, LV systolic function has improved slightly and EF is 40-45% Zach Reece MD (Electronically Signed) Final Date: 03 April 2022 12:52 S
[2022-04-03 23:48] LABS: Glucose Point of Care 103 mg/dL (70-110)
[2022-04-04] VITALS: BP 130/75; PULSE 60; RESP 18; TEMP 36.8; O2SAT 98
[2022-04-04 03:40] VITALS: BP 108/62; PULSE 52; RESP 18; TEMP 36.8; O2SAT 97
[2022-04-04 05:03] LABS: Basophils % 0.5 %; Eosinophils # 0.3 10^3/uL (0.0-0.8); Eosinophils % 3.2 %; Hemoglobin 8.3 g/dL (11.5-15.3); Lymphocytes # 2.7 10^3/uL (0.8-4.8); Lymphocytes % 32.8 %; Mean Corpuscular HGB Conc 31.9 g/dL (30.0-36.0); Mean Corpuscular Volume 87.8 fl (81-99); Mean Platelet Volume 10.4 fL (7.4-10.4); Monocytes # 0.8 10^3/uL (0.2-0.9); Monocytes % 10.3 %; Neutrophils # 4.28 10^3/uL (1.8-7.7); Neutrophils % 53.1 %; Nucleated Red Blood Cells % 0 %; Platelet Count 230 10^3/cmm (130-400); Red Blood Count 2.96 10^6/uL (4.1-5.3); Red Cell Distribution Width 18.1 % (12.1-15.1); White Blood Count 8.1 10^3/uL (4.0-10.0)
[2022-04-04] MEDS: heparin 5,000 unit/mL INJ 1 mL 5000 UNIT SUBCUT (05:34)
[2022-04-04] MEDS: sodium chloride 0.9% 1,000 ML 75 ML IV ×2 (05:39→05:43)
[2022-04-04 05:41] LABS: Alanine Aminotransferase < 5 U/L (0-33); Albumin Level 3.3 g/dL (3.5-5.2); Alkaline Phosphatase 76 IU/L (35-105); Anion Gap 12.1 (5-19); Aspartate Amino Transferase 8 U/L (0-32); Blood Urea Nitrogen 37 mg/dL (8-23); Calcium 8.3 mg/dL (8.5-10.5); Carbon Dioxide 20 mmol/L (22-29); Chloride 117 mmol/L (98-107); Chol HDL Ratio 3.39 mg/dL (0.0-4.40); Cholesterol 95 mg/dL (0-200); Globulin 2.7 g/dL (1.3-4.6); Glomerular Filtration Rate 62.6 mL/min (90-130); Glucose 82 mg/dL (65-115); HDL Cholesterol 28 mg/dL (60-100); LDL Cholesterol Calculated 33 mg/dL (50-129); Osmolality Calculated 306 mOsm/kg (285-295); Potassium 5.1 mmol/L (3.5-5.1); Sodium 144 mmol/L (136-145); Total Bilirubin 0.2 mg/dL (0.15-1.2); Triglycerides 169 mg/dL (0-150); VLDL Cholestrol Calculation 34 mg/dL (0-30)
[2022-04-04 05:53] LABS: Estmated Average Glucose 151; Hemoglobin A1C 6.9 % (4.0-6.0)
[2022-04-04 07:01] LABS: Glucose Point of Care 101 mg/dL (70-110)
[2022-04-04 07:15] VITALS: BP 99/59; PULSE 50; RESP 18; TEMP 36.8; O2SAT 95
[2022-04-04] MEDS: ferrous gluconate 324 mg Tablet PO (08:40)
[2022-04-04] MEDS: sodium bicarbonate 650 mg Tablet PO (08:40)
[2022-04-04] MEDS: aspirin 325 mg Tablet PO (08:40)
[2022-04-04] MEDS: pantoprazole DR 40 mg Tablet PO (08:40)
[2022-04-04 09:38] VITALS: PULSE 128; RESP 20; O2SAT 94
--- NOTE | 2022-04-04 10:47 | P.DS_ITS ---
Discharge Providers Date of Admission: 04/02/22 20:18 Date of Discharge: April 04, 2022 Attending Provider at Admission: Susie Cleary MD Attending Provider at Discharge: Kevin Pacheco MD Primary Care Provider: Willow Foreman APN Diagnoses at Discharge Discharge Diagnosis (1) LES (acute kidney injury): Status: Acute (2) Hypotension: Status: Acute (3) Hyperkalemia: Status: Acute (4) Diabetes: Status: Acute Qualifiers: Diabetes mellitus type: type 2 Diabetes mellitus halfway insulin use: without halfway use Diabetes mellitus complication status: without complication Qualified Code(s): E11.9 - Type 2 diabetes mellitus without complications (5) Cardiomyopathy: Status: Acute Qualifiers: Cardiomyopathy type: dilated Qualified Code(s): I42.0 - Dilated cardiomyopathy (6) CAD (coronary artery disease): Status: Acute Qualifiers: Coronary Disease-Associated Artery/Lesion type: [place] artery [place] vs. transplanted heart: [place] heart Associated angina: without angina Qualified Code(s): I25.10 - Atherosclerotic heart disease of [place] coronary artery without angina pectoris Permanent problem details: Angiogram in 2019?Occluded RCA with mild plaquing left system. Collaterals from left to occluded RCA. Reason for Visit Reason for Visit: low on blood Hospital Course Hospital Course Shannan Cisneros is a 66 year old female with a past medical history of hypertension, cardiomyopathy, ejection fraction improved from 10 to 30% as of 2019, presented to the ER on 04/02 because she was noted to have a low blood pressure at her primary care's office. As per the patient she has been having nausea and vomiting for last 3 to 4 days along with abdominal discomfort. Denied any diarrhea. States she continues take her oral medications as pr escribed but was not not able to keep her with her oral hydration. On presentation in the ER she was found to have a potassium of 5.4, creatinine of 5.1 with a BUN of 75. She was found to be hypotensive in the ER. She was admitted for further evaluation management. It is believed her symptoms are most likely secondary to poor oral intake while she was taking her antihypertensives and Lasix. Her antihypertensives were withheld and she was started with IV hydration. She responded well to the treatment and creatinine is back to baseline. Her blood pressures are better as well. During hospit alization echocardiogram was done which showed an EF of 40 to 45%. Her hospital stay was otherwise unremarkable. She has been discharged hemodynamically stable condition with advised to follow- up with her primary care provider within next 1 week to 10 days. She is advised not to take her antihypertensives for now. She is advised to check her blood pressure daily at home and maintain a blood pressure diary and follow-up with a primary care provider within next 1 week to 10 days for reinitiation of antihypertensives. She is not to take her lisinopril, Coreg, Lasix for now. While she is off Coreg she is to take metoprolol 25 mg morning and evening. She is advised not to take metoprolol once she restarts carvedilol. She is asked not to take spironolactone anymore. Physical Exam Narrative: General: No acute distress, AO x3, pallor present HEENT: PERRLA, pupils bilaterally equal and reactive Chest: Normal vesicular breath sounds, no added sounds, equal good air entry bilaterally CVS: S1-S2 regular, no murmurs, no tachycardia, no gallops, no rubs Abdomen: Soft, nontender, no organomegaly, bowel sounds present Neuro: No focal deficits, no facial deformity, AO x3, power 5/5 in all limbs Discharge Data Studies Completed and Pending Completed Studies During Hospitalization Category [place] [id number] Urgent Cat Scan 04/02/22 18:14 Completed CV. echo complete* [id number] Routine Ultrasound 04/03/22 23:44 Completed Pending at discharge Category Date Time Status Blood Culture Stat Lab 04/02/22 17:37 Results Radiology Impressions Chest/Abdomen/Pelvis CT 04/02/22 18:14 IMPRESSION: 1. Negative for infiltrate. 2. Coronary artery atherosclerotic calcifications. 3. 13 mm nodule in the thyroid isthmus along with an additional nodule suspected in the right thyroid lobe, nonemergent thyroid ultrasound could further evaluate this. 4. Mild emphysematous changes suspected. IMPRESSION: 1. Negative for acute inflammatory process in the abdomen or pelvis. 2. Gallbladder wall calcification. 3. Right kidney punctate nonobstructing calyceal stone. Echocardiogram: CONCLUSIONS ?LV systolic function is mildly reduced with EF 40-45%.? Mild ?global hypokinesis ?Grade 1 diastolic dysfunction. ?Trace mitral regurgitation. ?Mild aortic regurgitation. ?Trace tricuspid regurgitation. ?Compared to prior echocardiogram from 02/08/2020, LV systolic ?function has improved slightly and EF is 40-45% Laboratory Results WBC 8.1 10^3/uL (4.0-10.0) 04/04/22 04:26 RBC 2.96 10^6/uL (4.1-5.3) L 04/04/22 04:26 Hgb 8.3 g/dL (11.5-15.3) L 04/04/22 04:26 Hct 26.0 % (37.0-47.0) L 04/04/22 04:26 MCV 87.8 fl (81-99) 04/04/22 04:26 MCH 28.0 pg (28.0-34.0) 04/04/22 04:26 MCHC 31.9 g/dL (30.0-36.0) 04/04/22 04:26 RDW 18.1 % (12.1-15.1) H 04/04/22 04:26 Plt Count 230 10^3/cmm (130-400) 04/04/22 04:26 MPV 10.4 fL (7.4-10.4) 04/04/22 04:26 Neut % (Auto) 53.1 % 04/04/22 04:26 Lymph % (Auto) 32.8 % 04/04/22 04:26 [place] % (Auto) 10.3 % 04/04/22 04:26 Eos % (Auto) 3.2 % 04/04/22 04:26 Baso % (Auto) 0.5 % 04/04/22 04:26 Neut # (Auto) 4.28 10^3/uL (1.8-7.7) 04/04/22 04:26 Lymph # (Auto) 2.7 10^3/uL (0.8-4.8) 04/04/22 04:26 [place] # (Auto) 0.8 10^3/uL (0.2-0.9) 04/04/22 04:26 Eos # (Auto) 0.3 10^3/uL (0.0-0.8) 04/04/22 04:26 Baso # (Auto) 0.0 10^3/uL (0.0-0.1) 04/04/22 04:26 Nucleated RBC % (auto) 0 % 04/04/22 04:26 Nucleated RBCs # 0.0 /100WBC 04/04/22 04:26 PT 14.50 SECONDS (12.1-14.9) 04/02/22 17:28 INR 1.09 (0.8-1.2) 04/02/22 17:28 APTT 32.0 SECONDS (23.9-36.7) 04/02/22 17:28 Sodium 144 mmol/L (136-145) 04/04/22 04:26 Potassium 5.1 mmol/L (3.5-5.1) 04/04/22 04:26 Chloride 117 mmol/L (98-107) H 04/04/22 04:26 Carbon Dioxide 20 mmol/L (22-29) L 04/04/22 04:26 Anion Gap 12.1 (5-19) 04/04/22 04:26 BUN 37 mg/dL (8-23) H 04/04/22 04:26 Creatinine 0.9 mg/dL (0.5-0.9) 04/04/22 04:26 GFR Calculation 62.6 mL/min (90-130) L 04/04/22 04:26 Glucose 82 mg/dL (65-115) 04/04/22 04:26 POC Glucose 101 mg/dL (70-110) 04/04/22 06:54 Estimat Average Glucose 151 04/04/22 04:26 Hemoglobin A1c 6.9 % (4.0-6.0) H 04/04/22 04:26 Calculated Osmolality 306 mOsm/kg (285-295) H 04/04/22 04:26 Lactic Acid 1.2 mmol/L (0.5-2.2) 04/02/22 17:28 Calcium 8.3 mg/dL (8.5-10.5) L 04/04/22 04:26 Iron 28 ug/dL (37-145) L 04/02/22 04:07 TIBC 273 mcg/dl 04/02/22 04:07 % Saturation 10.2 % (20-50) L 04/02/22 04:07 Unsat Iron Binding 245 ug/dL (112-347) 04/02/22 04:07 Total Bilirubin 0.2 mg/dL (0.15-1.2) 04/04/22 04:26 AST 8 U/L (0-32) 04/04/22 04:26 ALT < 5 U/L (0-33) 04/04/22 04:26 Alkaline Phosphatase 76 IU/L (35-105) 04/04/22 04:26 Creatine Kinase 40 U/L (26-192) 04/02/22 17:28 Troponin T Baseline 26 ng/L (0-10) H 04/02/22 21:39 Troponin T 120 Minute 25.14 ng/L (0-10) H 04/02/22 23:42 Delta Troponin T -0.86 ABS# (0-10) L 04/02/22 23:42 Troponin T Hi Sens 6Hr 28.27 ng/L (0-10) H 04/03/22 04:07 Troponin T Hi Sens 6Hr Delta 2.27 ng/L (0-12) 04/03/22 04:07 NT-Pro-B Natriuret Pep 747 pg/mL (0-125) H 04/02/22 17:28 Total Protein 6.0 g/dL (6.6-8.7) L 04/04/22 04:26 Albumin 3.3 g/dL (3.5-5.2) L 04/04/22 04:26 Globulin 2.7 g/dL (1.3-4.6) 04/04/22 04:26 Triglycerides 169 mg/dL (0-150) H 04/04/22 04:26 Triglycerides Cancelled 04/04/22 04:26 Cholesterol 95 mg/dL (0-200) 04/04/22 04:26 Cholesterol Cancelled 04/04/22 04:26 LDL Cholesterol, Calc 33 mg/dL (50-129) L 04/04/22 04:26 LDL Cholesterol, Calc Cancelled 04/04/22 04:26 Total VLDL Cholesterol 34 mg/dL (0-30) H 04/04/22 04:26 Total VLDL Cholesterol Cancelled 04/04/22 04:26 HDL Cholesterol 28 mg/dL (60-100) L 04/04/22 04:26 HDL Cholesterol Cancelled 04/04/22 04:26 Cholesterol/HDL Ratio 3.39 mg/dL (0.0-4.40) 04/04/22 04:26 Cholesterol/HDL Ratio Cancelled 04/04/22 04:26 Lipase 32 U/L (13-60) 04/02/22 17:28 Vitamin B12 277 pg/mL (232-1245) 04/02/22 04:07 Folate 8.7 ng/mL (4.8-37.3) 04/02/22 17:28 TSH 0.51 uIU/mL (0.27-4.20) 04/02/22 17:28 Urine Color Yellow (Yellow) 04/02/22 20:48 Urine Appearance Hazy (CLEAR) A 04/02/22 20:48 Urine pH 5 (5-7) 04/02/22 20:48 Ur Specific [place] 1.020 (1.005-1.030) 04/02/22 20:48 Urine Protein Neg (Negative) 04/02/22 20:48 Urine Glucose (UA) Norm (Normal) 04/02/22 20:48 Urine Ketones Negative (Negative) 04/02/22 20:48 Urine Blood Neg (Negative) 04/02/22 20:48 Urine Nitrate Negative (Negative) 04/02/22 20:48 Urine Bilirubin 1+ (Negative) H 04/02/22 20:48 Urine Urobilinogen Norm mg/dL (Negative) 04/02/22 20:48 Ur Leukocyte Esterase Trace (Negative) H 04/02/22 20:48 Urine RBC 0-4 /hpf (0-2) H 04/02/22 20:48 Urine WBC 5-10 /hpf (0-5) H 04/02/22 20:48 Ur Squamous Epith Cells 15-25 /hpf (0-5) H 04/02/22 20:48 Amorphous Sediment Not Reportable 04/02/22 20:48 Urine Bacteria 2+ /hpf (NONE) H 04/02/22 20:48 Urine Mucus Trace /hpf 04/02/22 20:48 Ur Random Sodium 62 mmol/L 04/03/22 00:26 Ur Random Potassium 23 mmol/L 04/03/22 00:26 Ur Random Chloride 17 mmol/L 04/03/22 00:26 Urine Creatinine 127 mg/dL (28-217) 04/03/22 00:26 Hepatitis A IgM Ab Non-reactive (Nonreactive) 04/02/22 17: Hep Bs Antigen Non-reactive (Nonreactive) 07/15/22 17:28 Hep Bs Antibody < 3.5 (11.5-1000) L 04/02/22 17:28 Hep B Core Total Ab Non-reactive (Nonreactive) 04/02/22 17:28 Hepatitis C Antibody Non-reactive (Nonreactive) 04/02/22 17:28 Blood Type O Positive 04/02/22 17:28 Rho(D) Type Positive 04/02/22 17:28 Antibody Screen Negative 04/02/22 17:28 Vitals Last Vital Signs Temp 98.3 F 04/04/22 07:15 Pulse 128 H 04/04/22 09:38 Resp 20 H 04/04/22 09:38 BP 99/59 04/04/22 07:15 Pulse Ox 94 04/04/22 09:38 Discharge Plan Discharge Patient Disposition: Home Condition: Stable Prescriptions: New aspirin 81 mg capsule 81 mg PO DAILY Qty: 30 0RF metoprolol tartrate 25 mg tablet 25 mg PO BID Qty: 20 0RF ferrous gluconate 324 mg (37.5 mg iron) Tablet 324 mg PO BIDWM Qty: 60 0RF Continued potassium chloride 10 mEq tablet,ER particles/crystals 10 meq PO DAILY PRN (Reason: Edema) 0RF atorvastatin 40 mg tablet 40 mg PO BEDTIME 0RF metformin 500 mg tablet 1,000 mg PO BID 0RF albuterol sulfate 90 mcg/actuation Hfa Aerosol Inhaler 2 puff INHALATION QID PRN (Reason: Shortness Of Breath) 0RF Held furosemide 20 mg tablet 20 mg PO DAILY PRN (Reason: Edema) 0RF Hold Instructions: Resume on 04/13/22. lisinopril 20 mg tablet 20 mg PO BID Qty: 180 3RF Hold Instructions: Resume on 04/13/22. carvedilol 3.125 mg Tablet 3.125 mg PO BID 0RF Hold Instructions: Resume on 04/12/22. Rx Instructions: must administer with a meal/food Discontinued aspirin 325 mg Tablet 325 mg PO DAILY 0RF spironolactone 25 mg tablet 25 mg PO DAILY 0RF Discharge Orders: Discharge Order (Routine); Ordered 04/04/22 Ordered By: Kevin Pacheco Referrals: Foreman,Willow, DIALYSIS SOCIAL WORKER [Primary Care Provider] - 7-10 days (Please call Tuesday to schedule follow up appointment. ) Discharge Diet: Regular and Cardiac Discharge Activity: Resume usual activity and Increase activity as tolerated Patient Instructions: Abdominal Pain - Adult, Iron Supplements (By mouth), Metoprolol (By mouth), Acute Kidney Injury (DC), Abdominal Pain (ED), Opioid Safety Activity Restrictions/Additional Instructions: For now please do not take any antihypertensives. Hold off on taking lisinopril, carvedilol and furosemide for next 2 weeks. Check your blood pressure daily at home and maintain a blood pressure diary and follow-up with your primary care provider within next 1 week for reinitiation of antihypertensives as possible. For now while you are off carvedilol please take metoprolol 25 mg morning and evening. Once your blood pressures are better and you restart on carvedilol please do not take metoprolol. Repeat BMP with a primary care provider within next 1 week. Do not take spironolactone or aspirin 325 mg anymore. Medication has been changed to aspirin 81 mg daily. Please take up to 2 to 3 L of water daily. Discharge Attestations Time Spent in Discharge Care*: greater than 30 min Specific Discharge Activities: educating patient, educating and/or supporting family/caregiver, discussing with case picker/social workers/dc planners, documenting/other paperwork and evaluating patient/reviewing data Status at Discharge: Cognitive status at discharge: cognitively intact , Behavioral status at discharge: cooperative , Functional status at discharge: independent ambulation , Overall status at discharge: patient is back to baseline Quality Metrics Clinical Quality Measures [ No reported AMI, CVA or VTE this stay] Coding Level of Care Code Acute Chg FW DC note Diagnoses LES (acute kidney injury) N17.9 Hypotension I95.9 Hyperkalemia E87.5 Diabetes E11.9 Diabetes mellitus type: type 2 Diabetes mellitus extermination inspector insulin use: without extermination inspector use Diabetes mellitus complication status: without complication Cardiomyopathy I42.0 Cardiomyopathy type: dilated CAD (coronary artery disease) I25.10 Coronary Disease-Associated Artery/Lesion type: [place] artery [place] vs. transplanted heart: [place] heart Associated angina: without angina
[2022-04-04 11:15] LABS: Glucose Point of Care 119 mg/dL (70-110)
== END 2022-04-04 11:25 | disposition home or self-care (01) | DRG 683 ==
LOC: ER 20:17 → MEDSURG 20:29
PROVIDERS: Admitting Provider Student in an Organized Health Care Education/Training Program; Emergency Provider Emergency Medicine; PCP Nurse Practitioner Family; Visit Provider Student in an Organized Health Care Education/Training Program
DX: N17.9 Acute kidney failure, unspecified (principal); I42.0 Dilated cardiomyopathy; I50.22 Chronic systolic (congestive) heart failure; J44.9 Chronic obstructive pulmonary disease, unspecified; I25.10 Atherosclerotic heart disease of native coronary artery without angina pectoris; I11.0 Hypertensive heart disease with heart failure; E78.5 Hyperlipidemia, unspecified; E11.51 Type 2 diabetes mellitus with diabetic peripheral angiopathy without gangrene; I95.9 Hypotension, unspecified; F17.210 Nicotine dependence, cigarettes, uncomplicated; E87.5 Hyperkalemia; Z79.51 Long term (current) use of inhaled steroids; Z79.84 Long term (current) use of oral hypoglycemic drugs
CPT/HCPCS: 36415; 36416; 71250; 74176; 80053; 80061; 81001; 82436; 82550; 82570; 82607; 82746; 82962; 83036; 83540; 83550; 83605; 83690; 83880; 84133; 84300; 84443; 84484; 85025; 85610; 85730; 86705; 86706; 86709; 86803; 86850; 86900; 87040; 87340; 93005; 93306; 94760; 96361; 96372; 96374; 99285; J1644; J1815; J2405; J7030

== ENCOUNTER 2022-05-17 06:03 | Day surgery (SDC) | payer MEDICARE, MEDICAID, SELFPAY ==
[2022-05-13 12:32] VITALS: BMI 27.4
[2022-05-17 06:27] VITALS: BP 148/57; PULSE 82; RESP 18; TEMP 36.2; O2SAT 97
[2022-05-17] MEDS: sodium chloride 0.9% 1,000 ML 30 ML IV (06:43)
--- NOTE | 2022-05-17 07:00 | ANES.PREANE2 ---
Pre-Anesthetic Assessment Height/Weight: Height 1.65 m Weight 74.843 kg Temp Pulse Resp BP Pulse Ox O2 Del Method 97.1 F L 82 18 148/57 97 05/17/22 06:27 05/17/22 06:27 05/17/22 06:27 05/17/22 06:27 05/17/22 06:27 05/17/22 06:27 Preop Diagnosis: Iron def an Operation Date: 05/17/22 07:30 Proposed Procedures p EGD 40917,D50.9(Not Applicable) - Maximilian Sigala MD Was Beta Donna taken within 24 hours: N/A Was Clonidine taken within 24 hours: N/A Last intake: Intake Last Liquid Date 05/16/22 Last Liquid Time 16:00 Last Solid Date 05/16/22 Last Solid Time 14:00 Last Intake: 23:00 Social Tobacco 1/2 ppd pack(s) per day Exam alert and oriented x 3 Airway Submandibular: within normal limits Cervical ROM: within normal limits Mallampati: Class II Dentition: false History/ROS No significant history except as noted Pulmonary Chronic Obstructive Pulmonary Disease CV/HEM Coronary Artery Disease and Hypertension None reported Hepatic None reported GI Gastroesophageal Reflux Disease Metabolic Diabetes Mellitus [facility] [place] None reported Neuropsych None reported Anesthetic Plan ASA status: 3 Anesthesia: MAC Medications/Allergies Home Medications Medication Instructions Recorded Confirmed Last Taken Type atorvastatin 40 mg tablet 40 mg PO BEDTIME 09/23/19 05/17/22 05/15/22 History metformin 500 mg tablet 1,000 mg PO BID 09/23/19 05/17/22 05/17/22 History lisinopril 20 mg tablet 20 mg PO BID #180 tabs 06/12/21 05/17/22 05/17/22 Rx carvedilol 3.125 mg tablet 3.125 mg PO BID 04/02/22 05/17/22 05/17/22 History albuterol sulfate 90 mcg/actuation 2 puff inhalation QID PRN 04/03/22 05/17/22 05/15/22 History aerosol inhaler Shortness Of Breath aspirin 81 mg capsule 81 mg PO DAILY #30 caps 04/04/22 05/17/22 05/15/22 Rx ferrous gluconate 324 mg (37.5 mg 324 mg PO BIDWM #60 tabs 04/04/22 05/17/22 05/17/22 Rx iron) tablet ondansetron HCl 4 mg tablet 4 mg PO Q4H PRN NAUSEA 04/14/22 05/17/22 05/17/22 History pantoprazole 40 mg tablet,delayed 40 mg PO DAILY 04/14/22 05/17/22 05/17/22 History release sucralfate 1 gram tablet (Carafate) 1 g PO .Four times a day 04/14/22 05/17/22 05/17/22 History Allergies Allergy/AdvReac Type Severity Reaction Status Date / Time No Known Drug Allergies Allergy Unknown Verified 05/17/22 06:27 Current Medications Generic Name Dose Route Start Last Admin Trade Name Freq PRN Reason Stop Dose Admin Sodium Chloride 1,000 mls @ 30 mls/hr 05/17/22 06:15 05/17/22 06:43 Sodium Chloride 0.9% IV 05/18/22 06:14 30 mls/hr .Q24H LUCY Administration PFSH Anesthesia Medical History Abdominal pain CAD (coronary artery disease) Angiogram in 2019?Occluded RCA with mild plaquing left system. Collaterals from left to occluded RCA. Cardiomyopathy Cholelithiasis Claudication of both lower extremities COPD (chronic obstructive pulmonary disease) Diabetes Hyperlipidemia Hypertension Thickening of wall of gallbladder Family History Father Cancer Lung Mother Hypertension Diabetes Denies family history of Anesthesia complication Bleeding disorder Social History Smoking and tobacco status: current every day smoker cigarettes Packs smoked per day: 1 Quit status (tobacco): has tried quititng Second hand smoke exposure: Yes Alcohol intake: never Adopted: No Caregiver/support person: Yes Lives independently: Yes Household members: family Housing: House Marital status: Highest education level completed: High School Graduate service: No Current occupational status: retired Current occupational exposures/hazards: No Pets and animals: No History of recent travel: No Sexually active: No Current gender identity: Female Janet/Catholic: [employer] Special janet needs: No Agree to transfusion: No Financial difficulty paying for basics: Decline to Answer Data Anesthesia Cardiac Studies: Echocardiogram 04/03/22 Echocardiogram Limited Views 02/08/20 Echocardiogram Ultrasound 12/11/19
--- NOTE | 2022-05-17 07:33 | W.PM.OPSFHP ---
Same Day Surgery H&P Indication for Procedure/HPI DATE OF PROCEDURE: May 17, 2022 CHIEF COMPLAINT/INDICATIONFOR SURGICAL PROCEDURE: Iron def anemia PREOP DIAGNOSIS: Iron def an PLANNED PROCEDURE: Operation Date: 05/17/22 07:30 Proposed Procedures p EGD 03085,D50.9(Not Applicable) - Maximilian Sigala MD Medications/Allergies* Home Medications Medication Instructions Recorded Confirmed Type atorvastatin 40 mg tablet 40 mg PO BEDTIME 09/23/19 05/17/22 History metformin 500 mg tablet 1,000 mg PO BID 09/23/19 05/17/22 History carvedilol 3.125 mg tablet 3.125 mg PO BID 04/02/22 05/17/22 History albuterol sulfate 90 mcg/actuation 2 puff inhalation QID PRN 04/03/22 05/17/22 History aerosol inhaler Shortness Of Breath ondansetron HCl 4 mg tablet 4 mg PO Q4H PRN NAUSEA 04/14/22 05/17/22 History pantoprazole 40 mg tablet,delayed 40 mg PO DAILY 04/14/22 05/17/22 History release sucralfate 1 gram tablet (Carafate) 1 g PO .Four times a day 04/14/22 05/17/22 History Allergies/Adverse Reactions Allergy/AdvReac Type Severity Reaction Status Date / Time No Known Drug Allergies Allergy Unknown Verified 05/17/22 06:27 Current Medications: Generic Name Dose Route Start Last Admin Trade Name Freq PRN Reason Stop Dose Admin Sodium Chloride 1,000 mls @ 30 mls/hr 05/17/22 06:15 05/17/22 06:43 Sodium Chloride 0.9% IV 05/18/22 06:14 30 mls/hr .Q24H LUCY Administration Pertinent History/Comorbid Conditions* Medical History (Updated 05/12/22 @ 10:16 by Maximilian Sigala MD) Abdominal pain CAD (coronary artery disease) Angiogram in 2019?Occluded RCA with mild plaquing left system. Collaterals from left to occluded RCA. Cardiomyopathy Cholelithiasis Claudication of both lower extremities COPD (chronic obstructive pulmonary disease) Diabetes Hyperlipidemia Hypertension Thickening of wall of gallbladder Family History (Updated 04/14/22 @ 08:53 by Nolan Lara) Diabetes Mother Cancer Father Lung Hypertension Mother Denies family history of Anesthesia complication Bleeding disorder Social History Smoking and tobacco status: current every day smoker cigarettes Packs smoked per day: 1 Quit status (tobacco): has tried quititng Second hand smoke exposure: Yes Alcohol intake: never Adopted: No Caregiver/support person: Yes Lives independently: Yes Household members: family Housing: House Marital status: Highest education level completed: High School Graduate service: No Current occupational status: retired Current occupational exposures/hazards: No Pets and animals: No History of recent travel: No Sexually active: No Current gender identity: Female Janet/Adventism: Amish Special janet needs: No Agree to transfusion: No Financial difficulty paying for basics: Decline to Answer Pertinent Exam Findings alert, oriented x 3, clear to auscultation bilaterally, regular rate & rhythm, operative site marked and procedure specific exam findings Recommendations Surgery/Procedure today Coding Level of Care Code Acute Logger Driving Horses for Shruti Olvera
[2022-05-17 08:00] VITALS: BP 103/44; PULSE 59; RESP 14; TEMP 36.3; O2SAT 92
[2022-05-17 08:10] VITALS: BP 97/69; PULSE 62; RESP 18; O2SAT 94
--- NOTE | 2022-05-17 13:24 | ANE.PACU2 ---
Inpatient post-anesthesia follow up: Airway intact: Yes Vital signs: Temperature 97.3 F Pulse Rate 62 Respiratory Rate 18 Blood Pressure 97/69 Pulse Oximetry 94 Oxygen Delivery Me thod Room Air Oxygen Flow Rate Fraction of Inspir ed Oxygen Hydration adequate: Yes Nausea and vomiting: No Pain level: 1 Mental status: Baseline
== END 2022-05-17 08:27 | disposition home or self-care (01) ==
PROVIDERS: PCP Nurse Practitioner Family; Visit Provider Internal Medicine
PROC: 0DJ08ZZ Inspection of Upper Intestinal Tract, Via Natural or Artificial Opening Endoscopic (ICD-10-PCS; CPT 43235; principal; 2022-05-17 07:30)
PROC: 0DJD8ZZ Inspection of Lower Intestinal Tract, Via Natural or Artificial Opening Endoscopic (ICD-10-PCS; CPT 45378; 2022-05-17 07:30)
DX: D50.9 Iron deficiency anemia, unspecified (principal); E11.9 Type 2 diabetes mellitus without complications; I10 Essential (primary) hypertension; E78.5 Hyperlipidemia, unspecified; J44.9 Chronic obstructive pulmonary disease, unspecified; K21.9 Gastro-esophageal reflux disease without esophagitis; I25.10 Atherosclerotic heart disease of native coronary artery without angina pectoris; F17.210 Nicotine dependence, cigarettes, uncomplicated; Z79.82 Long term (current) use of aspirin; Z79.84 Long term (current) use of oral hypoglycemic drugs
CPT/HCPCS: 43235; 45378; J2704; J7030

== ENCOUNTER 2022-07-02 00:25 | Inpatient (IN) | payer MEDICARE, MEDICAID, SELFPAY ==
[2022-07-02] VITALS (26 sets, daily range): BP systolic 120–179; BP diastolic 52–90; PULSE 60–99; RESP 16–34; TEMP 36.3–36.6; O2SAT 81–99; BMI 29.9; BMI 26.9
--- NOTE | 2022-07-02 00:31 | W.ED.CHESTPA ---
HPI - Chest Pain General: Chief Complaint: Chest Pain Stated Complaint: RESP. DISTRESS Time Seen by Provider: 07/02/22 00:30 History of Present Illness: Ms. Cisneros is a 67-year-old lady with significant past medical history of hypertension, hyperlipidemia, likely COPD with continued tobacco use presenting to the emergency department with respiratory distress and chest pain. She reports being at her baseline health though perhaps at some chest discomfort earlier in the day. She laid down to go to bed and developed sharp left anterior chest pain with radiation to the back associated with significant shortness of breath. EMS found the patient to be hypoxemic in the 70s and tachycardic. This somewhat improved with supplemental oxygen and shortness of breath improved with DuoNeb however the chest pain is persisted. Moderate intensity. Denies frequent episodes in the past. No other specific changes in health, exacerbating, or alleviating factors identified. Given 324 mg aspirin, 125 mg Solu-Medrol, albuterol Onset (ago): hour(s) Timing of current episode: increasing Onset: during rest Severity: severe Exacerbating factors: exertion Associated symptoms: Reports dyspnea and palpitations Review of Systems General: Reports: 10 or more systems reviewed and unremarkable except in HPI and below Card: Reports: palpitations Resp: Reports: dyspnea PFSH ED PFSH: Medical History Abdominal pain CAD (coronary artery disease) Angiogram in 2019?Occluded RCA with mild plaquing left system. Collaterals from left to occluded RCA. Cardiomyopathy Cholelithiasis Claudication of both lower extremities COPD (chronic obstructive pulmonary disease) Diabetes Hyperlipidemia Hypertension Thickening of wall of gallbladder Family History Father Cancer Lung Mother Hypertension Diabetes Denies family history of Anesthesia complication Bleeding disorder Social History Smoking and tobacco status: current every day smoker cigarettes Packs smoked per day: 1 Quit status (tobacco): has tried quititng Second hand smoke exposure: Yes Alcohol intake: never Adopted: No Caregiver/support person: Yes Lives independently: Yes Household members: family Housing: House Marital status: Highest education level completed: High School Graduate service: No Current occupational status: retired Current occupational exposures/hazards: No Pets and animals: No History of recent travel: No Sexually active: No Current gender identity: Female Janet/Gnosticism: Pentecostal Special janet needs: No Agree to transfusion: No Financial difficulty paying for basics: Decline to Answer Physical Exam Const: COMMON NORMALS: alert GENERAL APPEARANCE: cooperative, well developed and ill appearing HENMT: COMMON NORMALS: normocephalic and atraumatic HEAD & SCALP: normocephalic and atraumatic THROAT: posterior oropharynx normal Eye: COMMON NORMALS: conjunctivae normal CONJUNCTIVA: Yes conjunctivae normal SCLERA: sclerae normal Neck/C-Spine: COMMON NORMALS: supple GENERAL: Yes trachea midline Resp: EFFORT & INSPECTION: Yes tachypneic and Yes respiratory distress AUSCULTATION: diminished lung sounds Cardio: COMMON NORMALS: regular rate and regular rhythm RATE: regular rate RHYTHM: regular rhythm GI: COMMON NORMALS: Soft to palpation PALPATION: Yes Soft to palpation and No Tenderness to palpation present (GI) Extremity: GENERAL: Yes normal exam except as noted and No edema Neuro: COMMON NORMALS: moves all extremities SENSORIUM/ORIENTATION: Yes alert and No Orientation impaired Psych: COMMON NORMALS: mental status grossly normal and Normal thought process present THOUGHT PROCESS: Normal thought process present Course ED course: - Patient was seen and evaluated by me at bedside - Patient placed on cardiac monitors, IV access obtained - Initial evaluation notable for exam as above. - Labs and xrays personally interpreted by me. EKG notable for sinus rhythm with nonspecific ST segment abnormalities, no STEMI -RT treatment ordered, antibiotics ordered. - Labs notable for leukocytosis, normocytic anemia. Elevated D-dimer. Hypoxemia despite supplemental oxygen. No acute electrolyte arrangement. Delta troponin is positive. No COVID. - Imaging notable for infiltrate concerning for pneumonia. CTA with cardiomegaly and pulmonary edema. Likely superimposed pneumonia. - Upon serial reexamination after treatment the patient was mildly improved - Based on patient history, evaluation, and testing as interpreted the most likely cause of the patient's condition is NSTEMI, pneumonia, acute hypoxic respiratory failure - The results of ED evaluation were discussed with the patient including plan for admission due to requirement for level of care not available if discharged to prevent significant worsening/deterioration. - Admitting service was contacted and Dr Bagley with the hospital service agreed to admit the patient - Patient was admitted without further deterioration or significant events. Note: Click bubbles or prepopulated melara in note writing are used for assistance with data collection and billing and are inherently more limited than narrative and other text portions of this note. Please use narrative for additional clinical history and defer to narrative/free test for any case of contradictory information. If information appears in only free text or click bubble it should be considered present or absent as reported. Please contact note policy writer typist for clarifications of clinical information or contradictory information. MDM is a brief summary, contradictory or erroneous seeming information should be clarified and full note should be reviewed. Vital Signs: Vital signs: Vital Signs Temperature 97.0 F L 07/04/22 07:00 Pulse Rate 73 07/04/22 11:55 Respiratory Rate 24 H 07/04/22 08:32 Blood Pressure 156/60 07/04/22 08:00 Pulse Oximetry 81 L 07/04/22 10:10 Oxygen Delivery Me thod 07/04/22 08:32 Oxygen Flow Rate 3 07/04/22 10:10 Fraction of Inspir ed Oxygen 3 07/03/22 02:34 MDM - Chest Pain Medical Decision Making 67-year-old lady presenting with respiratory distress and chest pain. Likely has pneumonia with COPD exacerbation. Additional evidence of NSTEMI of uncertain etiology, may be type II. Admitted for further management. Medical Records I reviewed the patient's medical records. Lab Data I reviewed the patient's lab results. : 07/04/22 03:15 07/04/22 03:15 Radiology Impressions Chest X-Ray 07/02/22 00:32 IMPRESSION: COPD with superimposed pneumonia at the right lung base. Chest CTA 07/02/22 00:49 IMPRESSION: Cardiomegaly with pulmonary edema consistent with congestive failure. COPD with probable superimposed pneumonia infiltrates at both lung bases. Laboratory Results WBC 12.1 10^3/uL (4.0-10.0) H 07/02/22 00:50 Corrected WBC Cancelled 07/02/22 00:34 RBC 4.30 10^6/uL (4.1-5.3) 07/02/22 00:50 Hgb 10.6 g/dL (11.5-15.3) L 07/02/22 00:50 Hct 37.0 % (37.0-47.0) 07/02/22 00:50 MCV 86.0 fl (81-99) 07/02/22 00:50 MCH 24.7 pg (28.0-34.0) L 07/02/22 00:50 MCHC 28.6 g/dL (30.0-36.0) L 07/02/22 00:50 RDW 14.7 % (12.1-15.1) 07/02/22 00:50 Plt Count 269 10^3/cmm (130-400) 07/02/22 00:50 MPV 10.4 fL (7.4-10.4) 07/02/22 00:50 Gran % Cancelled 07/02/22 00:34 Neut % (Auto) 73.5 % 07/02/22 00:50 Lymph % (Auto) 16.2 % 07/02/22 00:50 [place] % (Auto) 8.0 % 07/02/22 00:50 Eos % (Auto) 1.4 % 07/02/22 00:50 Baso % (Auto) 0.6 % 07/02/22 00:50 Neut # (Auto) 8.89 10^3/uL (1.8-7.7) H 07/02/22 00:50 Lymph # (Auto) 2.0 10^3/uL (0.8-4.8) 07/02/22 00:50 [place] # (Auto) 1.0 10^3/uL (0.2-0.9) H 07/02/22 00:50 Eos # (Auto) 0.2 10^3/uL (0.0-0.8) 07/02/22 00:50 Baso # (Auto) 0.1 10^3/uL (0.0-0.1) 07/02/22 00:50 Absolute Gran (auto) Cancelled 07/02/22 00:34 Nucleated RBC % (auto) 0 % 07/02/22 00:50 Nucleated RBCs # 0.0 /100WBC 07/02/22 00:50 PT 15.20 SECONDS (12.1-14.9) H 07/02/22 00:50 INR 1.16 (0.8-1.2) 07/02/22 00:50 D-Dimer 1.42 ug/mIFEU (0-0.59) H 07/02/22 00:50 Specimen Type Arterial 07/02/22 00:27 Sample Site Radial, right 07/02/22: ABG pH 7.39 (7.35-7.45) 07/02/22: ABG pCO2 43.5 mmHg (35-45) 07/02/22: ABG pO2 50.4 mmHg (80.0-100.0) L 07/02/22: ABG HCO3 26.0 mmol/L (22-26) 07/02/22: ABG Base Excess 0.7 mmol/L (-2.0-2.0) 07/02/22: Endy Test Pos 07/02/22: Hematocrit 32.7 % (37-47) L 07/02/22: Hgb O2 Saturation 80.6 % (95-100) L 07/02/22: Carboxyhemoglobin 4.3 %THgb (0.4-20.1) 07/02/22: Methemoglobin 0.8 % (0.4-1.5) 07/02/22: Total Hemoglobin 10.7 g/dL (12-16) L 07/02/22: O2 Delivery Device Nc 07/02/22: O2 Liters/Min 6.0 % 07/02/22:27 Acute Coordinator ID [place] 07/02/22: Sodium 141 mmol/L (136-145) 07/02/22 00:50 Potassium 3.7 mmol/L (3.5-5.1) 07/02/22 00:50 Chloride 101 mmol/L (98-107) 07/02/22 00:50 Carbon Dioxide 26 mmol/L (22-29) 07/02/22 00:50 Anion Gap 17.7 (5-19) 07/02/22 00:50 BUN 6 mg/dL (8-23) L 07/02/22 00:50 Creatinine 0.5 mg/dL (0.5-0.9) 07/02/22 00:50 GFR Calculation 123.1 mL/min (90-130) 07/02/22 00:50 Glucose 252 mg/dL (65-115) H 07/02/22 00:50 Calculated Osmolality 298 mOsm/kg (285-295) H 07/02/22 00:50 Lactic Acid 2.3 mmol/L (0.5-2.2) H 07/02/22 00:50 Lactic Acid (Sepsis) 1.6 mmol/L (0.5-2.2) 07/02/22 03:24 Calcium 9.0 mg/dL (8.5-10.5) 07/02/22 00:50 Total Bilirubin 0.3 mg/dL (0.15-1.2) 07/02/22 00:50 AST 12 U/L (0-32) 07/02/22 00:50 ALT < 5 U/L (0-33) 07/02/22 00:50 Alkaline Phosphatase 108 U/L (35-105) H 07/02/22 00:50 Troponin T Baseline 20 ng/L (0-10) H 07/02/22 00:50 Troponin T 120 Minute 61.49 ng/L (0-10) H 07/02/22 03:10 Delta Troponin T 41.49 ABS# (0-10) H* 07/02/22 03:10 C-Reactive Protein 6.0 mg/L (0.0-4.9) H 07/02/22 00:50 NT-Pro-B Natriuret Pep 3698 pg/mL (0-125) H 07/02/22 00:50 Total Protein 7.2 g/dL (6.6-8.7) 07/02/22 00:50 Albumin 3.9 g/dL (3.5-5.2) 07/02/22 00:50 Globulin 3.3 g/dL (1.3-4.6) 07/02/22 00:50 Lipase 25 U/L (13-60) 07/02/22 00:50 Procalcitonin 0.02 ng/mL (0-0.5) 07/02/22 00:50 Coronavirus 229E (PCR) Not detected (NOT DETECT) 07/02/22 00:55 SARS-CoV-2 (PCR) Not detected (NOT DETECT) 07/02/22 00:55 Critical Care Time Critical Care Time: Critical Care Time: Yes Total Critical Care Time: 35 Attestation: Due to a high probability of clinically significant, possibly life threatening deterioration, the patient required my highest level of attention and preparedness to intervene emergently and I personally spent this critical care time directly and personally managing the patient. This critical care time included obtaining a history; examining the patient; pulse oximetry; ordering and review of laboratory and imaging studies; arranging urgent treatment with development of a management plan; evaluation of patient's response to treatment; frequent reassessment; and, discussions with other providers as applicable. It was exclusive of separately billable procedures. Primary system involved is cardiopulmonary Discharge Plan Discharge Patient Disposition: Admitted As Inpatient Admit Provider: To Bagley Clinical Impression: Pneumonia, Acute exacerbation of chronic obstructive pulmonary disease, Acute exacerbation of CHF (congestive heart failure), Acute respiratory failure with hypoxia, Non-ST elevation OK (NSTEMI) Condition: Stable Discharge Diet: Cardiac, Diabetic and Low Salt Discharge Activity: Increase activity as tolerated and Oxygen as instructed Coding Level of Care Code ED Claims Customer Service Representative for Shruti Olvera
--- NOTE | 2022-07-02 00:32 | XRR_ITS ---
PROCEDURE INFORMATION: Exam: XR Chest Exam date and time: 07/02/2022 12:37 AM Age: 67 years old Clinical indication: Shortness of breath; Patient HX: Resp distress. Severe SOB with sp02 of 86 on 8 liters of 02. History of copd. TECHNIQUE: Imaging protocol: Radiologic exam of the chest. Views: 1 view. COMPARISON: [place] [id number] 04/02/2022 6:45 PM FINDINGS: Lungs: Patchy pneumonia consolidation throughout the right lower lung. Hyperinflation with interstitial prominence consistent with COPD. Pleural spaces: Unremarkable. No pleural effusion. No pneumothorax. Heart/Mediastinum: Cardiac silhouette is enlarged. Vasculature: There is atherosclerotic calcification in the aortic arch. Bones/joints: Unremarkable. XR/XR chest 1V portable [id number] IMPRESSION: COPD with superimposed pneumonia at the right lung base.
--- NOTE | 2022-07-02 00:36 | ECG_ITS ---
[facility] Test Date: 2022-07-02 Pat Name: Shannan Cisneros Department: Room: Gender: Female Job Change Crew Member: : 1955 Requested By: Darrel Vargas Order Number: [id number] Mellissa MD: Negra Peña M.D. Measurements Intervals [place] Rate: 90 P: 58 MD: 181 QRS: 42 QRSD: 107 T: 227 QT: 394 QTc: 483 Interpretive Statements SINUS RHYTHM POSSIBLE ANTERIOR MYOCARDIAL INFARCTION , PROBABLY OLD [30 ms Q WAVE IN V3/V4, OR R < 0.2 mV IN V4] MODERATE T-WAVE ABNORMALITY, CONSIDER INFERIOR ISCHEMIA [-0.1+ mV T-WAVE IN II/aVF] Compared to ECG 04/03/2022 03:54:17 T-wave abnormality now present Possible ischemia now present Myocardial infarct finding still present Electronically Signed On 07-02-2022 16:32:47 CDT by Negra Peña M.D. [id number]
[2022-07-02 00:38] LABS: ABG PCO2 43.5 mmHg (35-45); ABG PH Result 7.39 (7.35-7.45); Arterial Blood Gas Hematocrit 32.7 % (37-47); Base Excess ABG 0.7 mmol/L (-2.0-2.0); Blood Gas Allen Test Pos; Blood Gas Operator Identificat WALCI; Blood Gas Sample Site Radial, right; Blood Gas Sample Type Arterial; Carboxyhemoglobin 4.3 %THgb (0.4-20.1); HGB O2 Sat 80.6 % (95-100); Methemoglobin 0.8 % (0.4-1.5); Oxygen Device NC; PO2 ABG 50.4 mmHg (80.0-100.0); Total Hemoglobin 10.7 g/dL (12-16)
[2022-07-02] MEDS: ipratropium-albuterol 3 mL Neb INHALATION ×4 (00:49→19:43)
--- NOTE | 2022-07-02 00:49 | CTR_ITS ---
PROCEDURE INFORMATION: Exam: CTA Chest With Contrast Exam date and time: 07/02/2022 1:06 AM Age: 67 years old Clinical indication: Shortness of breath; Patient HX: Resp distress. Severe SOB with hypoxia. History of copd and cardiomyopathy. ; Additional info: SOB, chest pain TECHNIQUE: Imaging protocol: Computed tomographic angiography of the chest with contrast. 3D rendering (Not supervised by radiologist): MIP and/or 3D reconstructed images were created by the technologist. Radiation optimization: All CT scans at this facility use at least one of these dose optimization techniques: automated exposure control; mA and/or kV adjustment per patient size (includes targeted exams where dose is matched to clinical indication); or iterative reconstruction. Contrast material: OMNI 350; Contrast volume: 89 ml; Contrast route: INTRAVENOUS (IV); COMPARISON: [place] [id number] 04/02/2022 6:45 PM RADIATION DOSE METRICS: Total DLP (mGy-cm): 442.21 FINDINGS: Pulmonary arteries: Normal. No pulmonary emboli. Aorta: Unremarkable. No aortic aneurysm. No aortic dissection. Lungs: Hyperinflation with interstitial prominence consistent with COPD. Groundglass density throughout both lungs consistent with probable pulmonary edema versus pneumonitis. More dense consolidation at the lung bases consistent with pneumonia. Pleural spaces: There are small bilateral pleural effusions. Heart: Cardiomegaly with coronary artery and valvular calcifications. Lymph nodes: Unremarkable. No enlarged lymph nodes. Bones/joints: Unremarkable. No acute fracture. Soft tissues: Unremarkable. CT/CT angio chest PE protcl [id number] IMPRESSION: Cardiomegaly with pulmonary edema consistent with congestive failure. COPD with probable superimposed pneumonia infiltrates at both lung bases.
[2022-07-02 00:57] LABS: Basophils # 0.1 10^3/uL (0.0-0.1); Basophils % 0.6 %; Eosinophils # 0.2 10^3/uL (0.0-0.8); Eosinophils % 1.4 %; Hemoglobin 10.6 g/dL (11.5-15.3); Lymphocytes % 16.2 %; Mean Corpuscular HGB Conc 28.6 g/dL (30.0-36.0); Mean Corpuscular Hemoglobin 24.7 pg (28.0-34.0); Mean Platelet Volume 10.4 fL (7.4-10.4); Neutrophils # 8.89 10^3/uL (1.8-7.7); Neutrophils % 73.5 %; Nucleated Red Blood Cells % 0 %; Platelet Count 269 10^3/cmm (130-400); Red Cell Distribution Width 14.7 % (12.1-15.1); White Blood Count 12.1 10^3/uL (4.0-10.0)
[2022-07-02 01:14] LABS: Lactic Sepsis W/Reflex 2.3 mmol/L (0.5-2.2)
[2022-07-02 01:15] LABS: Troponin(5th) Baseline 20 ng/L (0-10)
[2022-07-02] MEDS: iohexol 350 mg/mL 100 mL Btl IV (01:18)
[2022-07-02 01:33] LABS: INR 1.16 (0.8-1.2)
[2022-07-02 01:35] LABS: D Dimer 1.42 ug/mIFEU (0-0.59)
[2022-07-02 01:49] LABS: Alanine Aminotransferase < 5 U/L (0-33); Albumin Level 3.9 g/dL (3.5-5.2); Alkaline Phosphatase 108 U/L (35-105); Aspartate Amino Transferase 12 U/L (0-32); Blood Urea Nitrogen 6 mg/dL (8-23); Carbon Dioxide 26 mmol/L (22-29); Globulin 3.3 g/dL (1.3-4.6); Glomerular Filtration Rate 123.1 mL/min (90-130); Glucose 252 mg/dL (65-115); Lipase 25 U/L (13-60); Total Bilirubin 0.3 mg/dL (0.15-1.2); Total Protein 7.2 g/dL (6.6-8.7)
[2022-07-02 01:50] LABS: Anion Gap 17.7 (5-19); Chloride 101 mmol/L (98-107); Osmolality Calculated 298 mOsm/kg (285-295); Potassium 3.7 mmol/L (3.5-5.1); Sodium 141 mmol/L (136-145)
[2022-07-02 01:51] LABS: NT Pro B Type Natriuretic Pept 3698 pg/mL (0-125)
[2022-07-02 01:53] LABS: Reflex Lactate Order REFLEX LACTIC ORDERD
[2022-07-02 02:08] LABS: Procalcitonin 0.02 ng/mL (0-0.5)
--- NOTE | 2022-07-02 02:24 | ECG_ITS ---
[facility] Test Date: 2022-07-02 Pat Name: Shannan Cisneros Department: Room: Gender: Female Metal Buffer: : 1955 Requested By: Darrel Vargas Order Number: [id number] Mellissa MD: Negra Peña M.D. Measurements Intervals [place] Rate: 76 P: 52 [place]: 182 QRS: 3 QRSD: 107 T: 200 QT: 435 QTc: 490 Interpretive Statements SINUS RHYTHM POSSIBLE ANTERIOR MYOCARDIAL INFARCTION , OF INDETERMINATE AGE [30 ms Q WAVE IN V3/V4, OR R < 0.2 mV IN V4] MODERATE T-WAVE ABNORMALITY, CONSIDER LATERAL ISCHEMIA [-0.1+ mV T-WAVE IN I/aVL/V5/V6] MODERATE T-WAVE ABNORMALITY, CONSIDER INFERIOR ISCHEMIA [-0.1+ mV T-WAVE IN II/aVF] Compared to ECG 07/02/2022 00:36:54 No significant changes Electronically Signed On 07-02-2022 16:36:42 CDT by Negra Peña M.D. [id number]
[2022-07-02 02:42] LABS: Adenovirus Not Detected (NOT DETECT); Chlamydia Pneumoniae Not Detected (NOT DETECT); Coronavirus 229E,HKU1,NL63,OC4 Not Detected (NOT DETECT); Human Metapneumovirus Not Detected (NOT DETECT); Human Rhinovirus/Enterovirus Not Detected (NOT DETECT); Influenza A Not Detected (NOT DETECT); Influenza A H1 Not Detected (NOT DETECT); Influenza A H1-2009 Not Detected (NOT DETECT); Influenza A H3 Not Detected (NOT DETECT); Influenza B Not Detected (NOT DETECT); Mycoplasma Pneumoniae Not Detected (NOT DETECT); Parainfluenza Virus Type 1 Not Detected (NOT DETECT); Parainfluenza Virus Type 2 Not Detected (NOT DETECT); Parainfluenza Virus Type 3 Not Detected (NOT DETECT); Parainfluenza Virus Type 4 Not Detected (NOT DETECT); Respiratory Syncytial Virus A Not Detected (NOT DETECT); Respiratory Syncytial Virus B Not Detected (NOT DETECT); SARS-COV-2 Not Detected (NOT DETECT)
[2022-07-02] MEDS: piperacillin-tazobactam 4.5 GM in sodium chloride 0.9% (plus) 50 ML IV (03:35)
[2022-07-02 03:37] LABS: Troponin 5 2HR 61.49 ng/L (0-10)
[2022-07-02 03:53] LABS: Troponin 5 2HR Delta 41.49 ABS# (0-10)
[2022-07-02 04:04] LABS: Lactic Acid level (Lactate) 1.6 mmol/L (0.5-2.2)
--- NOTE | 2022-07-02 04:33 | PM.HP ---
Providers/Chief Complaint Admitting Physician: To Bagley MD Primary Care Provider: Willow Foreman APN Chief Complaint: RESP. DISTRESS History of Present Illness Shannan Cisneros is a 67 year old female with past medical history of hypertension diabetes,HFrEF, copd, current active smoker, came in today with chief complaint of acute onset of left-sided pressure-like chest pain 6 out of 10 in severity, nonradiating, accompanied with shortness of breath, started around 9 PM this evening. When EMS arrived to the scene they found patient to be hypoxic with sats in 70s as well as she was tachycardic. She received nebs Solu-Medrol and aspirin en route to ER by EMS. Patient is currently denying any fever, chills, nausea vomiting, abdominal pain. Upon arrival in the ER she was worked up for above-mentioned complaint: Pertinent imaging studies: CTA chest: Cardiomegaly with pulmonary edema consistent with congestive failure.Groundglass density throughout both lungs consistent with probable pulmonary edema versus pneumonitis.? More dense consolidation at the lung bases consistent with pneumonia.? There are small bilateral pleural effusions. EKG: SINUS RHYTHM, MODERATE T-WAVE ABNORMALITY, CONSIDER LATERAL ISCHEMIA? [-0.1+ mV T-WAVE IN I/aVL/V5/V6] . MODERATE T-WAVE ABNORMALITY, CONSIDER INFERIOR ISCHEMIA? [-0.1+ mV T-WAVE IN II/aVF] Pertinent labs: WBC 12.1, H&H 10.6/ 37 , PLT : 269 , serum sodium 141 serum potassium 3.7 BUN serum creatinine: 6/0.5 , Lactic acid 2.3-repeat lactic acid 1.6, procalcitonin normal, Troponin trend: - proBNP: 3698 ? Review of Systems General: Reports: 10 or more systems reviewed and unremarkable except in HPI and below Const: Denies: fever(s), chills, body aches, change in appetite or diaphoresis Card: Reports: dyspnea on exertion; Denies: palpitations, edema, swelling of feet/ankles, orthopnea or leg pain with exertion Resp: Reports: dyspnea; Denies: productive cough, wheezing or pain on inspiration GI: Denies: abdominal pain, nausea, vomiting, diarrhea or constipation : Denies: flank pain Musc: Denies: back pain, extremity pain or extremity swelling Neuro: Denies: headache(s), difficulty walking or confusion Medications/Allergies Home Medications Medication Instructions Recorded Confirmed Last Taken Type atorvastatin 40 mg tablet 40 mg PO BEDTIME 09/23/19 05/17/22 05/15/22 History metformin 500 mg tablet 1,000 mg PO BID 09/23/19 05/17/22 05/17/22 History lisinopril 20 mg tablet 20 mg PO BID #180 tabs 06/12/21 05/17/22 05/17/22 Rx carvedilol 3.125 mg tablet 3.125 mg PO BID 04/02/22 05/17/22 05/17/22 History albuterol sulfate 90 mcg/actuation 2 puff inhalation QID PRN 04/03/22 05/17/22 05/15/22 History aerosol inhaler Shortness Of Breath aspirin 81 mg capsule 81 mg PO DAILY #30 caps 04/04/22 05/17/22 05/15/22 Rx ferrous gluconate 324 mg (37.5 mg 324 mg PO BIDWM #60 tabs 04/04/22 05/17/22 05/17/22 Rx iron) tablet ondansetron HCl 4 mg tablet 4 mg PO Q4H PRN NAUSEA 04/14/22 05/17/22 05/17/22 History pantoprazole 40 mg tablet,delayed 40 mg PO DAILY 04/14/22 05/17/22 05/17/22 History release sucralfate 1 gram tablet (Carafate) 1 g PO .Four times a day 04/14/22 05/17/22 05/17/22 History Allergies Allergy/AdvReac Type Severity Reaction Status Date / Time No Known Drug Allergies Allergy Unknown Verified 05/17/22 06:27 PFSH Acute PFSH: Medical History Abdominal pain CAD (coronary artery disease) Angiogram in 2019?Occluded RCA with mild plaquing left system. Collaterals from left to occluded RCA. Cardiomyopathy Cholelithiasis Claudication of both lower extremities COPD (chronic obstructive pulmonary disease) Diabetes Hyperlipidemia Hypertension Thickening of wall of gallbladder Family History Father Cancer Lung Mother Hypertension Diabetes Denies family history of Anesthesia complication Bleeding disorder Social History Smoking and tobacco status: current every day smoker cigarettes Packs smoked per day: 1 Quit status (tobacco): has tried quititng Second hand smoke exposure: Yes Alcohol intake: never Adopted: No Caregiver/support person: Yes Lives independently: Yes Household members: family Housing: House Marital status: Highest education level completed: High School Graduate service: No Current occupational status: retired Current occupational exposures/hazards: No Pets and animals: No History of recent travel: No Sexually active: No Current gender identity: Female Janet/Baptism: Shinto Special janet needs: No Agree to transfusion: No Financial difficulty paying for basics: Decline to Answer Vitals/I&O/Wt Last Vital Signs Temp 97.3 F L 07/02/22 00:37 Pulse 72 07/02/22 03:56 Resp 23 H 07/02/22 03:56 BP 137/59 07/02/22 03:56 Pulse Ox 95 07/02/22 03:56 O2 Del Method 07/02/22 03:56 O2 Flow Rate 4 07/02/22 03:56 Weight last 48 hrs Weight 81.647 kg Physical Exam Const: COMMON NORMALS: patient oriented x3 HENMT: COMMON NORMALS: normocephalic and atraumatic HEAD & SCALP: normocephalic and atraumatic Resp: COMMON NORMALS: clear to auscultation bilaterally AUSCULTATION: clear to auscultation bilaterally OTHER: Diminished air entry bilaterally Cardio: COMMON NORMALS: regular rate, regular rhythm, S1 normal heart sound present, S2 normal heart sound present, No gallops present (Cardio), No murmurs present (Cardio), No rub (Cardio) and Peripheral pulses 2+ throughout RATE: regular rate RHYTHM: regular rhythm HEART SOUNDS: S1 normal heart sound present and S2 normal heart sound present PERIPHERAL PULSES: Peripheral pulses 2+ throughout GI: COMMON NORMALS: Normal to inspection, nondistended, normoactive bowel sounds present, Soft to palpation, non-tender, No hepatosplenomegaly present and no masses AUSCULTATION: Yes normoactive bowel sounds PALPATION: Yes Soft to palpation and Yes No hepatosplenomegaly present RECTAL EXAM: deferred Extremity: COMMON NORMALS: no clubbing, cyanosis or edema and no pedal edema Neuro: COMMON NORMALS: patient oriented x3 Data : 07/02/22 00:50 07/02/22 00:50 Micro: Microbiology 07/02/22 00:43 Blood Culture - Preliminary Blood SPECIMEN COLLECTED 07/02/22 00:50 Blood Culture - Preliminary Blood SPECIMEN COLLECTED A&P Assessment and plan (1) Acute exacerbation of CHF (congestive heart failure): (2) Acute respiratory failure with hypoxia: (3) Non-ST elevation IN (NSTEMI): (4) Pneumonia: (5) Acute exacerbation of chronic obstructive pulmonary disease: (6) Hypertension: Qualifiers: Hypertension type: essential hypertension Qualified Code(s): I10 - Essential (primary) hypertension Plan 67 year old female with past medical history of hypertension diabetes,HFrEF, copd, current active smoker, came in today with chief complaint of acute onset of left-sided pressure-like chest pain 6 out of 10 in severity, nonradiating, accompanied with shortness of breath, started around 9 PM this evening. Assessment: Acute on chronic decompensated heart failure with reduced ejection fraction Possible pneumonia NSTEMI possibly secondary to decompensated heart failure, possibility of type I cannot be conclusively rule out given the patient risk factors, she has hypertension diabetes currently a smoker. Hypertension Diabetes COPD Plan: Follow urine Legionella antigen bacterial antigen panel Sputum gram stain and culture Troponin trend: Patient has a recent 2D echo done in March of this year, results appreciated, for now I will not order repeat echo, depending upon the clinical course, limited 2D echo can be ordered later to reassess the EF if needed. I will start her on Lasix 40 twice daily, monitor intake output charting Daily weight K>4,MG>2 CT chest is more in line with heart failure, with pulmonary edema giving rise to groundglass appearance, she also has trace bilateral pleural effusion, for now, my clinical suspicion for pneumonia is low, for now will empirically cover her with ceftriaxone azithromycin Continue duo nebs, supplemental oxygen as needed. I will wait for her 6-hour troponin, we will keep her on prophylactic Lovenox for now, continue aspirin, statin ,beta-sakshi, lisinopril. Nitropaste, sublingual nitro as needed. LDSSI, monitor fingerstick glucose Cardiology can be consulted if needed CODE STATUS: Full code DVT prophylaxis: On Lovenox Attestations Medical Necessity Statement*: Patient is to be in hospital management of decompensated heart failure NSTEMI. Anticipated length of stay greater than 2 midnights. Time Spent in Patient Care: Greater than 35 minutes (>than 50% of time spent in counselling and/or direct pt care on unit). Coding Level of Care Code Acute Mental Health Worker for Thomasg Fwd Exam Detailed Diagnoses Acute exacerbation of CHF (congestive heart failure) I50.9 Acute respiratory failure with hypoxia J96.01 Non-ST elevation IN (NSTEMI) I21.4 Pneumonia J18.9 Acute exacerbation of chronic obstructive pulmonary disease J44.1 Hypertension I10 Hypertension type: essential hypertension
[2022-07-02] MEDS: FUROsemide 10 mg/mL SDV 4mL 40 MG IVP (05:11)
[2022-07-02] MEDS: guaiFENesin-dextromethorphan UDC 10 mL 5 ML PO ×2 (05:45→18:10)
[2022-07-02] MEDS: azithromycin 500 MG in sodium chloride 0.9% 250 ML 250 MG IV (06:13)
[2022-07-02] MEDS: enoxaparin 40 mg/0.4 mL Syringe SUBCUT (06:14)
--- NOTE | 2022-07-02 06:32 | ECG_ITS ---
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 Measurements Intervals [place] Rate: 82 P: 55 CO: 177 QRS: 25 QRSD: 110 T: 236 QT: 410 QTc: 482 Interpretive Statements SINUS RHYTHM POSSIBLE ANTERIOR MYOCARDIAL INFARCTION , OF INDETERMINATE AGE [30 ms Q WAVE IN V3/V4, OR R < 0.2 mV IN V4] MODERATE T-WAVE ABNORMALITY, CONSIDER LATERAL ISCHEMIA [-0.1+ mV T-WAVE IN I/aVL/V5/V6] MODERATE T-WAVE ABNORMALITY, CONSIDER INFERIOR ISCHEMIA [-0.1+ mV T-WAVE IN II/aVF] Compared to ECG 07/02/2022 02:24:12 No significant changes Electronically Signed On 07-02-2022 16:37:00 CDT by Negra Peña M.D. [id number]
[2022-07-02 07:24] LABS: Glucose Point of Care 296 mg/dL (70-110)
--- NOTE | 2022-07-02 07:52 | PC.NURSE ---
up to bedside commode several times this am less short of breath at this time
[2022-07-02 08:20] LABS: Troponin 5 6HR 83.24 ng/L (0-10)
[2022-07-02 08:24] LABS: Troponin 5 6HR Delta 63.24 ng/L (0-12)
[2022-07-02] MEDS: carvedilol 3.125 mg Tablet PO ×2 (08:27→17:47)
[2022-07-02] MEDS: pantoprazole DR 40 mg Tablet PO (08:27)
[2022-07-02] MEDS: aspirin 81 mg EC Tablet PO (08:27)
[2022-07-02] MEDS: lisinopril 20 mg Tablet PO ×2 (08:27→17:47)
[2022-07-02] MEDS: insulin lispro 100 unit/1 mL SUBCUT ×3 (08:27→17:50)
--- NOTE | 2022-07-02 11:50 | PC.CHAP ---
Pastoral Care Encounter/Spiritual Assessment Type of Contact [] Declined front end web designer visit [] Patient/Family/Request visit [] Outpatient visit [] Follow-up visit [] Physician referral [] Code/Alert [x] Routine visit [] Staff referral [] Actively dying [] Patient sleeping [] Family support [] [] Out of room [] Palliative care [] [] Receiving care in room [] Pre-surgical visit [] Trauma [] Long length of stay [x] ICU visit [] Other: Relational/Emotional Strength [] Patient feels connected with others/family/visitors/staff [] Distress [] Loneliness/isolation [] Abandonment Spirituality of Patient [] Person of Janet [] Attends Faith of their Janet [] Believes in Prayer [] Reads Bible or Confucianism materials [] There are Spiritual issues to be addressed Activities Concierge Interventions [x] Prayer [] Active listening [] Non-anxious presence [] Spiritual/emotional support [] Crisis/trauma care [] Spiritual counseling [] Bereavement support [] Provided bereavement packet [] Provided Bible/devotional materials [] Provided toy/stuffed animal, coloring book to patient or family member [] Provided Communion [] Anointing/[place] [] Salvation [] Completed spiritual assessment [] Other: Impact on Illness or Injury [] Angry [] Fearful [] Anxious [] Often cries [] Exhaustion [] Unable to work [] Unable to attend presybeterian [] Unable to walk/stand [] Unable to read [] Unable to drive [] Unable to eat/drink [] Unable to sleep [] Unable to be with family [] Patient intubated [] Other: Summary Time spent with patient
[2022-07-02 12:00] LABS: Glucose Point of Care 320 mg/dL (70-110)
[2022-07-02] MEDS: nitroglycerin 1 gm/inch oint Pkt 0.5 INCH TOPICAL ×3 (12:01→23:10)
--- NOTE | 2022-07-02 13:04 | PM.CONSULT ---
Providers/Reason For Consult Consulting Physician/Specialty*: Zach Reece MD/Cardiology Reason for Consult*: NSTEMI/ Congestive heart failure Requesting Physician: Dr Marie Attending Physician: Sultana Marie MD Primary Care Provider: Willow Foreman APN History of Present Illness History of Present Illness Shannan Cisneros is a 67 year old female with past medical history of heart failure with reduced EF, diabetes, hypertension, smoking presented with left-sided chest pain. It was not radiating. [place] initially was quite severe. Lasted more than 30 minutes. She was also found to be hypoxic with sats in 70s at time of EMS arrival. Initial troponin was 20 that trended up to 83 at 6 hours. NT proBNP was more than 3500. EKG showed normal sinus rhythm with heart rate of [address] depressions in inferior leads however accurate assessment was not possible because of baseline artifact. Currently getting diuresis. Review of Systems General: Reports: 10 or more systems reviewed and unremarkable except in HPI and below Const: Denies: fever(s), chills, body aches, change in appetite or diaphoresis Card: Reports: chest pain and dyspnea on exertion; Denies: palpitations, edema, swelling of feet/ankles, orthopnea or leg pain with exertion Resp: Reports: dyspnea; Denies: productive cough, wheezing or pain on inspiration GI: Denies: abdominal pain, nausea, vomiting, diarrhea or constipation : Denies: flank pain Musc: Denies: back pain, extremity pain or extremity swelling Neuro: Denies: headache(s), difficulty walking or confusion Medications/Allergies Home Medications Medication Instructions Recorded Confirmed Last Taken Type atorvastatin 40 mg tablet 40 mg PO BEDTIME 09/23/19 07/02/22 05/15/22 History albuterol sulfate 90 mcg/actuation 2 puff inhalation QID PRN 04/03/22 07/02/22 05/15/22 History aerosol inhaler Shortness Of Breath aspirin 81 mg capsule 81 mg PO DAILY #30 caps 04/04/22 07/02/22 05/15/22 Rx ferrous gluconate 324 mg (37.5 mg 324 mg PO BIDWM #60 tabs 04/04/22 07/02/22 05/17/22 Rx iron) tablet ondansetron HCl 4 mg tablet 4 mg PO Q4H PRN NAUSEA 0707/02/22 05/17/22 History pantoprazole 40 mg tablet,delayed 40 mg PO DAILY 04/14/22 07/02/22 05/17/22 History release Allergies Allergy/AdvReac Type Severity Reaction Status Date / Time No Known Drug Allergies Allergy Unknown Verified 07/02/22 13:27 Current Medications Generic Name Dose Route Start Last Admin Trade Name Reyesq PRN Reason Stop Dose Admin Albuterol/Ipratropium 3 ml 07/02/22 08:00 07/02/22 09:24 Ipratropium-Albuterol 3 Ml Neb INHALATION 3 ml Q6H.RESP LUCY Administration Aspirin 81 mg 07/02/22 09:00 07/02/22 08:27 Aspirin 81 Mg Ec Tablet PO 81 mg DAILY LUCY Administration Carvedilol 3.125 mg 07/02/22 09:00 07/02/22 08:27 Carvedilol 3.125 Mg Tablet PO 3.125 mg BID LUCY Administration Enoxaparin Sodium 40 mg 07/02/22 07:00 07/02/22 06:14 Enoxaparin 40 Mg/0.4 Ml Syringe SUBCUT 40 mg Q24H LUCY Administration Furosemide 40 mg 07/02/22 05:00 07/02/22 05:11 Furosemide 10 Mg/Ml Sdv 4ml IVP 40 mg BID LUCY Administration Guaifenesin/Dextromethorphan 5 ml 07/02/22 05:31 07/02/22 05:45 Guaifenesin-Dextromethorphan Udc 10 Ml PO 5 ml Q4H PRN Administration COUGH Azithromycin 500 mg/ Sodium 250 mls @ 250 mls/hr 07/02/22 07:00 07/02/22 07:09 Chloride IV Infused Q24H LUCY Infusion Protocol Insulin Human Lispro 0 unit 07/02/22 08:00 07/02/22 12:02 Insulin Lispro 100 Unit/1 Ml SUBCUT 10 unit TIDWM LUCY Administration Protocol Lisinopril 20 mg 07/02/22 09:00 07/02/22 08:27 Lisinopril 20 Mg Tablet PO 20 mg BID LUCY Administration Nitroglycerin 0.5 inch 07/02/22 05:15 07/02/22 12:01 Nitroglycerin 1 Gm/Inch Oint Pkt TOPICAL 0.5 inch Q6H LUCY Administration Pantoprazole Sodium 40 mg 07/02/22 09:00 07/02/22 08:[address] 40 Mg Tablet PO 40 mg DAILY LUCY Administration PFSH Acute PFSH: Medical History Abdominal pain CAD (coronary artery disease) Angiogram in 2019?Occluded RCA with mild plaquing left system. Collaterals from left to occluded RCA. Cardiomyopathy Cholelithiasis Claudication of both lower extremities COPD (chronic obstructive pulmonary disease) Diabetes Hyperlipidemia Hypertension Thickening of wall of gallbladder Family History Father Cancer Lung Mother Hypertension Diabetes Denies family history of Anesthesia complication Bleeding disorder Social History Smoking and tobacco status: current every day smoker cigarettes Packs smoked per day: 1 Quit status (tobacco): has tried quititng Second hand smoke exposure: Yes Alcohol intake: never Adopted: No Caregiver/support person: Yes Lives independently: Yes Household members: family Housing: House Marital status: Highest education level completed: High School Graduate service: No Current occupational status: retired Current occupational exposures/hazards: No Pets and animals: No History of recent travel: No Sexually active: No Current gender identity: Female Janet/Cheondoism: Scientology Special janet needs: No Agree to transfusion: No Financial difficulty paying for basics: Decline to Answer Vitals/I&O/Wt Last Vital Signs Temp 97.3 F L 07/02/22 00:37 Pulse 68 07/02/22 12:00 Resp 21 H 07/02/22 12:00 BP 120/52 07/02/22 12:00 Pulse Ox 92 07/02/22 12:00 O2 Del Method 07/02/22 09:24 O2 Flow Rate 4 07/02/22 09:24 07/01/22 07/02/22 07/02/22 22:59 06:59 14:59 Intake Total 50 / 50 1300 / 1300 Output Total 550 / 550 550 / 550 Balance -500 / -500 750 / 750 Weight last 48 hrs Weight 162 lb Weight 180 lb Physical Exam Narrative: GENERAL: Patient is alert, awake and oriented x3. [] NECK: No jugular vein distension. [] HEENT: No cyanosis. No icterus. No pallor. [] HEART: Regular S1 and S2. No murmur, rub or gallop. [] LUNGS: Bilateral crackles ABDOMEN: Soft, nontender and nondistended. Positive bowel sounds. No guarding, rebound or tenderness. [] CENTRAL NERVOUS SYSTEM: Grossly nonfocal. [] EXTREMITIES: Lower extremities with 1+ edema bilaterally. Pulses palpable in the lower extremities, both dorsalis pedis and posterior tibial. [] Data : 07/03/22 03:50 07/03/22 03:50 Micro: Microbiology 07/02/22 04:50 Legionella Urinary Antigen - Final Urine,Clean Catch 07/02/22 00:43 Blood Culture - Preliminary Blood SPECIMEN COLLECTED 07/02/22 00:50 Blood Culture - Preliminary Blood SPECIMEN COLLECTED A&P Assessment and plan (1) Non-ST elevation UT (NSTEMI): (2) Acute respiratory failure with hypoxia: (3) Acute exacerbation of CHF (congestive heart failure): (4) COPD (chronic obstructive pulmonary disease): (5) Hyperlipidemia: Qualifiers: Hyperlipidemia type: mixed hyperlipidemia Qualified Code(s): E78.2 - Mixed hyperlipidemia (6) Hypertension: Qualifiers: Hypertension type: essential hypertension Qualified Code(s): I10 - Essential (primary) hypertension Plan Patient has presented with a non-ST elevation UT and is volume overloaded as well. Continue diuresis for today. We will assess tomorrow morning and if patient is able to lay down flat, we will proceed with coronary angiogram with possible percutaneous coronary intervention. Risks and benefits of the procedure have been discussed. Patient understands the risks and benefits and wants to proceed with the procedure. N.p.o. past midnight Continue aspirin. Start Plavix Anticoagulation Continue IV diuresis. Monitor renal function and electrolytes. Thank you for involving us with care of this patient. We will continue to follow. Please call with questions Consult Attestations Medical Necessity Statement: Care expected to cross 2 midnights. Coding Level of Care Code Acute Guest Services Assistant for Shruti Olvera Diagnoses Non-ST elevation UT (NSTEMI) I21.4 Acute respiratory failure with hypoxia J96.01 Acute exacerbation of CHF (congestive heart failure) I50.9 COPD (chronic obstructive pulmonary disease) J44.9 Hyperlipidemia E78.2 Hyperlipidemia type: mixed hyperlipidemia Hypertension I10 Hypertension type: essential hypertension
--- NOTE | 2022-07-02 13:16 | PM.MISC ---
Miscellaneous Note Note: Seen today. Family present at bedside. Bibasilar crackles present on lung auscultation Continue Lasix 40 IV twice daily. Consult cardiology for NSTEMI. Most likely plan for angiogram. Dr. Resendez to evaluate. Rest of management as per history physical document. Agree with admitting physician.
[2022-07-02 17:26] LABS: Glucose Point of Care 359 mg/dL (70-110)
[2022-07-02] MEDS: FUROsemide 10 mg/mL SDV 10mL 60 MG IVP (17:50)
[2022-07-02] MEDS: cefTRIAXone 1,000 MG in sodium chloride 0.9% (plus) 50 ML 100 MG IV (18:00)
[2022-07-02 20:02] LABS: Glucose Point of Care 353 mg/dL (70-110)
[2022-07-02] MEDS: atorvastatin 40 mg Tablet PO (20:10)
[2022-07-02] MEDS: insulin lispro 100 unit/1 mL 7 UNIT SUBCUT (21:16)
[2022-07-02] MEDS: insulin glargine 100 units/1 mL 20 UNIT SUBCUT (21:16)
[2022-07-03] VITALS (58 sets, daily range): BP systolic 87–162; BP diastolic 40–84; PULSE 50–88; RESP 18–27; TEMP 36.6–36.9; O2SAT 88–97
[2022-07-03] MEDS: ipratropium-albuterol 3 mL Neb INHALATION (02:33)
[2022-07-03 04:56] LABS: Basophils % 0.2 %; Eosinophils % 0.1 %; Hematocrit 31.5 % (37.0-47.0); Hemoglobin 9.1 g/dL (11.5-15.3); Lymphocytes % 15.4 %; Mean Corpuscular HGB Conc 28.9 g/dL (30.0-36.0); Mean Corpuscular Hemoglobin 23.8 pg (28.0-34.0); Mean Corpuscular Volume 82.5 fl (81-99); Mean Platelet Volume 10.6 fL (7.4-10.4); Monocytes # 1.2 10^3/uL (0.2-0.9); Monocytes % 9.1 %; Neutrophils # 9.63 10^3/uL (1.8-7.7); Neutrophils % 74.7 %; Nucleated Red Blood Cells % 0 %; Platelet Count 272 10^3/cmm (130-400); Red Blood Count 3.82 10^6/uL (4.1-5.3); Red Cell Distribution Width 14.6 % (12.1-15.1); White Blood Count 12.9 10^3/uL (4.0-10.0)
[2022-07-03 05:18] LABS: Alanine Aminotransferase < 5 U/L (0-33); Albumin Level 3.7 g/dL (3.5-5.2); Alkaline Phosphatase 84 U/L (35-105); Anion Gap 8.6 (5-19); Aspartate Amino Transferase 15 U/L (0-32); Blood Urea Nitrogen 16 mg/dL (8-23); Calcium 9.2 mg/dL (8.5-10.5); Carbon Dioxide 32 mmol/L (22-29); Chloride 95 mmol/L (98-107); Globulin 2.9 g/dL (1.3-4.6); Glomerular Filtration Rate 99.7 mL/min (90-130); Glucose 158 mg/dL (65-115); Magnesium 1.7 mg/dL (1.7-2.3); Osmolality Calculated 278 mOsm/kg (285-295); Potassium 3.6 mmol/L (3.5-5.1); Sodium 132 mmol/L (136-145); Total Bilirubin 0.3 mg/dL (0.15-1.2); Total Protein 6.6 g/dL (6.6-8.7)
[2022-07-03] MEDS: FUROsemide 10 mg/mL SDV 10mL 60 MG IVP ×2 (05:52→18:01)
[2022-07-03] MEDS: nitroglycerin 1 gm/inch oint Pkt 0.5 INCH TOPICAL ×3 (05:52→23:45)
[2022-07-03] MEDS: enoxaparin 40 mg/0.4 mL Syringe SUBCUT (05:53)
[2022-07-03] MEDS: azithromycin 500 MG in sodium chloride 0.9% 250 ML 250 MG IV (05:53)
--- NOTE | 2022-07-03 06:55 | PC.NURSE ---
Bedside report complete with HELIO Jacobs. Pt complaining of dry mouth and throat. She stated she is going to leave if she doesn't get some water or food this am. I have been waiting all morning. When is the Doctor going to be here? This is bullshit.
--- NOTE | 2022-07-03 08:38 | PC.RESP ---
pt refused to give sputum sample
[2022-07-03] MEDS: lisinopril 20 mg Tablet PO ×2 (08:42→17:58)
[2022-07-03] MEDS: carvedilol 3.125 mg Tablet PO ×2 (08:42→17:58)
[2022-07-03] MEDS: aspirin 81 mg EC Tablet PO (08:42)
[2022-07-03] MEDS: pantoprazole DR 40 mg Tablet PO (08:42)
[2022-07-03 08:43] LABS: Glucose Point of Care 139 mg/dL (70-110)
--- NOTE | 2022-07-03 10:07 | XACV_ITS ---
Exam Room: [facility] Ht: 165 cm Wt: 72 kg BSA: 1.83 m2 Gender: Female : 1955 Any Known Allergies: No known allergies Exam Priority: Routine Procedure(s): Procedure Description: Diagnostic procedure Procedure Description: Left Heart Catheterization Procedure Description: Coronary IVUS Procedure Description: Miscellaneous Procedure Description: ACT Procedure Description: Coronary Angiography Diagnostic Cath Status: Urgent Diagnostic Findings * Left Anterior Descending has mild 20% ostial disease. * Circumflex has mild to moderate luminal irregularities. * Proximal Right Coronary Artery: chronic total occlusion, BERONICA: 0 flow. * INDICATION: 67 year old female with past medical history of heart failure with reduced EF, diabetes, hypertension, smoking presented with left-sided chest pain. It was not radiating. [place] initially was quite severe. Lasted more than 30 minutes. She was also found to be hypoxic with sats in 70s at time of EMS arrival. Initial troponin was 20 that trended up to 83 at 6 hours. NT proBNP was more than 3500. EKG showed normal sinus rhythm with heart rate of [address] depressions in inferior leads however accurate assessment was not possible because of baseline artifact. Currently getting diuresis. * Ramus: Ostial 20% stenosis. * Left Main: minimal 30% stenosis, BERONICA: 3 flow. * Proximal Right Coronary Artery to Mid Right Coronary Artery: total occlusion, BEORNICA: 0 flow. * Coronary angiography shows right dominance. Interventional Findings * Procedure detail: In the left main artery with Next we advanced a 0.014 run-through guidewire into LAD. IVUS catheter was introduced into the LAD and pullback was performed. Distal left main MLA was found to be 7.4 mm2. As it was nonsignificant, we decided to proceed with medical therapy. Guidewire and guide catheter were removed. Patient left the Sizing Machine Operator in stable. Conclusions 1. Chronic total occlusion of proximal RCA. 2. Mild to moderate disease of distal left main artery. Found to be nonsignificant on IVUS. Recommendations * Aggressive risk factor modification. * Aspirin and Plavix for atleast 1 year. * Continue diuresis. * Outpatient cardiology follow up in 4 weeks. Interventional RX Recommendation: medical therapy and/or counseling Pressures Phase:Rest AO : 101 / 50 ( 73 ) @ 1:23:00 PM 135 / 47 ( 81 ) @ 1:31:00 PM 143 / 37 ( 79 ) @ 1:31:00 PM LV : 147 / 1 / 20 @ 1:31:00 PM 145 / 2 / 20 @ 1:31:00 PM Valves Phase:DefaultPhase AV : 6.0 @ 1:00:20 PM AV Mean Gradient: 7.0 @ 1:00:20 PM Clinical Evaluation EBL: 5mL-10mL Procedural Details Pre-Procedure Time Out. Identified patient by full name and date of as verbalized by the patient/guarantor. Does the consent match the physician's order: Yes. Accurate & Complete Informed Consent: Yes. Inpatient/Outpatient History & Physical on Chart: Yes. If H&P is completed, is and addenduem needed: No; If yes, is the addendum complete: N/A. Visualize and Verify Site with Patient/Guarantor: N/A. Relevant Radiology Images available: Yes. Pre-op teaching completed and patient verbalized understanding. The risks, benefits, and alternatives of sedation and/or procedure were discussed by physician. The patient agrees to continue. Procedure started. [facility] Clinical Fraility Score: 4: Vulnerable. Sizing Machine Operator Indications: ACS > 24 hours. Sizing Machine Operator Indications: Other: Heart Failure. Chest Pain Symptom Assessment: Atypical Angina. Correct patient, site and procedure confirmed by cath team. Current diagnosis: NSTEMI. PERRLA. Strong, equal hand seaming inspector bilaterally. Lungs clear x 5 lobes. IV Site on Arrival: 18 gauge in the right hand. IV Site on Arrival: 18 gauge in the left anticubital. IV Fluids: 0.9% NaCl at KVO. 0 mL infused prior to quality assurance/r&d lab technician. Oxygen started at 2liters/min via nasal canula. right groin was prepped with chloroprep then draped in the usual sterile fashion. right radial was prepped with chloroprep then draped in the usual sterile fashion. Baseline sample Acquired. HR: 74 BPM. Physician arrived. Current Diagnosis : NSTEMI. Physician scrubbed in. Immediate Pre-Procedure Time Out. Correct Patient: Yes; Correct Procedure: Yes; Correct Site: Yes; Correct Patient Position: Yes; Correct Supplies: Yes; Dried Flammable Prep: Yes; Blood Products Available: N/A;. Lidocaine 1% infiltrated to the right radial. Ultrasound being used to obtain access. Unable to obtain radial access. MD attempting to gain access in the Femoral artery. Lidocaine 1% infiltrated to the right groin. Ultrasound being used to obtain access. Arterial access obtained with micropuncture set. A 5 frisian JL4 catheter in over wire. Multiple views taken of left coronary artery. Catheter removed over the exchange wire. A 5 frisian JR4 catheter in over wire. Multiple views taken of right coronary artery. EDP Sample taken: LV 147/1,20; HR: 67 BPM; SpO2: 96%. Pullback taken: LV 145/2,20; AO 135/47(81); Mean: 7mmHg, Peak to Peak: 6mmHg, SEP: 21sec/min; HR: 65 BPM; SpO2: 97%. Catheter removed over the exchange wire. 6 frisian XB 3.5 guide catheter was inserted over the wire. Runthrough guidewire was advanced through the guide catheter to lesion in the prox LAD. IVUS catheter inserted OTW and measurements obtained. IVUS catheter out OTW. Wire out. Results checked. Guide catheter out. A Right femoral angiogram was performed to determine safe placement of closure device. A Suture was successful obtaining hemostatsis at the Right Femoral artery insertion site. Sheath(s) sutured into position with 2-0 silk and sterile 4x4's and Op-site applied over the site. No oozing or signs and symptoms of hematoma noted. Arterial sheath flushed and connected to tranducer and pressure bag with heparinized saline. ACT drawn. Results 197 seconds. Therapeutic limits - pre-heparin administration 90-150 seconds and monitoring heparin during a vascular procedure >250 seconds. Post Procedure: Pulses reassessed and unchanged. PERRLA. Strong, equal hand seaming inspector bilaterally. No VTE prophylaxis required. Medication's Wasted: Heparin = 3000 units. Medication's Wasted: Nitro = 50 mg. Total IV fluids: 79 mL. Complications: None. Estimated blood loss: 5mL-10mL. Responsiveness - Normal response to verbal stimuli; alert and oriented, PERRLA. Airway - Unaffected, no intervention required; spontaneous ventilation. Circulation: W/N/L, pulses unchanged. Nausea/Vomiting: No. Procedure completed. Patient transferred by bed to ICU. Vital chart was stopped. Access Site Site: Right Femoral artery Sheath Size: 6 Fr Hemostasis Method: Suture Hemostasis Success: Successful Procedure Medications Start: 11:51 AM Stop: 11:51 AM Medication: Versed Amount: 1 mg Route: I.V. Start: 11:51 AM Stop: 11:51 AM Medication: Fentanyl Amount: 50 mcg Route: I.V. Start: 12:00 PM Stop: 12:00 PM Medication: Versed Amount: 1 mg Route: I.V. Start: 12:26 PM Stop: 12:26 PM Medication: Versed Amount: 1 mg Route: I.V. Start: 12:34 PM Stop: 12:34 PM Medication: Heparin Amount: 6000 units Route: I.V. I, the attending physician, have reviewed and verified all procedure medications. Yes, all medications given per verbal order History/Risk Factors Hypertension: Yes Dyslipidemia: Yes Peripheral Arterial Disease (PAD): No Myocardial Infarction (PR): No Obesity: No Renal Disease: No Tobacco Use: Current/Recent(w/in 1 year) Prior Interventions PCI: No CABG: No Valve Surgery: No Report Signatures Finalized by Zach Reece MD on 07/08/2022 10:26 AM
--- NOTE | 2022-07-03 11:30 | P.PN_ITS ---
Subjective Subjective: seen this AM. pt upset why she is NPO. Explained to her that its for her procedure at 10 AM today. Pt still upset and states she plans to leave AMA eventually. 2 RN's spoke to her and I also discussed with her that we recommend she stay. Did not cooperate much with history taking today. Vitals/I&O/Wt Last Vital Signs Temp 98.4 F 07/03/22 08:00 Pulse 63 07/03/22 10:30 Resp 18 07/03/22 10:30 BP 129/54 07/03/22 10:30 Pulse Ox 95 07/03/22 10:30 O2 Del Method 07/03/22 10:30 O2 Flow Rate 2 07/03/22 10:30 FiO2 3 07/03/22 02:34 07/02/22 07/03/22 07/03/22 22:59 06:59 14:59 Intake Total 450 / 1750 100 / 1850 280 / 280 Output Total 450 / 1000 750 / 1750 1500 / 1500 Balance 0 / 750 -650 / 100 -1220 / -1220 Weight last 48 hrs Weight 71.985 kg Weight 73.482 kg Weight 81.647 kg Physical Exam Const: COMMON NORMALS: patient oriented x3 Resp: COMMON NORMALS: clear to auscultation bilaterally AUSCULTATION: clear to auscultation bilaterally OTHER: Mild crackles at left base Cardio: COMMON NORMALS: regular rate, regular rhythm, S1 normal heart sound present, S2 normal heart sound present, No gallops present (Cardio), No murmurs present (Cardio), No rub (Cardio) and Peripheral pulses 2+ throughout RATE: regular rate RHYTHM: regular rhythm HEART SOUNDS: S1 normal heart sound present and S2 normal heart sound present PERIPHERAL PULSES: Peripheral pulses 2+ throughout GI: COMMON NORMALS: Normal to inspection, nondistended, normoactive bowel sounds present, Soft to palpation and non-tender AUSCULTATION: Yes nor moactive bowel sounds PALPATION: Yes Soft to palpation RECTAL EXAM: deferred Extremity: COMMON NORMALS: no clubbing, cyanosis or edema and no pedal edema Neuro: COMMON NORMALS: patient oriented x3 Data : 07/03/22 03:50 07/03/22 03:50 Micro: Microbiology 07/02/22 00:43 Blood Culture - Preliminary Blood NEGATIVE TO DATE 07/02/22 00:50 Blood Culture - Preliminary Blood NEGATIVE TO DATE A&P Assessment and plan (1) Acute exacerbation of CHF (congestive heart failure): (2) Acute respiratory failure with hypoxia: (3) Non-ST elevation VT (NSTEMI): (4) Pneumonia: (5) Acute exacerbation of chronic obstructive pulmonary disease: (6) Hypertension: Qualifiers: Hypertension type: essential hypertension Qualified Code(s): I10 - Essential (primary) hypertension Plan 67 year old female with past medical history of hypertension diabetes,HFrEF, copd, current active smoker, came in today with chief complaint of acute onset of left-sided pressure-like chest pain 6 out of 10 in severity, nonradiating, accompanied with shortness of breath, started around 9 PM on day of admission. Assessment: Acute on chronic decompensated heart failure with reduced ejection fraction Possible pneumonia NSTEMI possibly secondary to decompensated heart failure, possibility of type I cannot be conclusively rule out given the patient risk factors, she has hypertension diabetes currently a smoker. Hypertension Diabetes COPD Plan: Follow urine Legionella antigen bacterial antigen panel Sputum gram stain and culture. Pt refused to give sample Troponin trend: Delta trop positive 20. Patient has a recent 2D echo done in March of this year, results appreciated, for now I will not order repeat echo, depending upon the clinical course, limited 2D echo can be ordered later to reassess the EF if needed. Continue lasix 60 IV BID K>4,MG>2 CT chest shows pulm edema. Empirically cover her with ceftriaxone azithromycin Continue duo nebs, supplemental oxygen as needed. Continue aspirin, statin ,beta-sakshi, lisinopril. Nitropaste, sublingual nitro as needed. LDSSI, monitor fingerstick glucose Cardiology consulted Plan for cath today at 10 AM. CODE STATUS: Full code DVT prophylaxis: On Lovenox Attestations Medical Necessity Statement*: Cath today Coding Level of Care Code Acute Firestopper Technician for Shruti Olvera Diagnoses Acute exacerbation of CHF (congestive heart failure) I50.9 Acute respiratory failure with hypoxia J96.01 Non-ST elevation VT (NSTEMI) I21.4 Pneumonia J18.9 Acute exacerbation of chronic obstructive pulmonary disease J44.1 Hypertension I10 Hypertension type: essential hypertension
[2022-07-03 11:41] LABS: Glucose Point of Care 110 mg/dL (70-110)
--- NOTE | 2022-07-03 11:43 | PC.NURSE ---
Pt to animal laboratory helper.
--- NOTE | 2022-07-03 11:44 | W.PM.OPSUD ---
Surgery/Procedure H&P Update DATE OF PROCEDURE: July 03, 2022 DATE H&P PERFORMED: 07/02/22 H&P UPDATE INFORMATION: I have reviewed H&P completed within last 30 days, I have examined patient prior to procedure and No changes to prior documentation PREOP DIAGNOSIS: NSTEMI PRIMARY INDICATION FOR PROCEDURE: NSTEMI PLANNED PROCEDURE: Left heart cath with possible percutaneous coronary intervention PATIENT REASSESSED PRIOR TO SEDATION, WITH NO CHANGE NOTED: Yes PHYSICAL EXAM: alert, oriented x 3, clear to auscultation bilaterally and regular rate & rhythm AIRWAY EVAL/ANESTHESIA PLAN: ASA III, Local Anesthesia, Risks, benefits & alternatives of sedation and/or procedure discussed and Patient agrees to continue as planned ADDITIONAL INFORMATION: Moderate sedation
--- NOTE | 2022-07-03 13:32 | PC.NURSE ---
Pt back to room form lab animal technologist. Right wrist Tr band present, pulse palpable, no bleeding noted. Right groin, sheath present, no hematoma or bleeding noted. Pedal pulse palpable.
--- NOTE | 2022-07-03 13:46 | P.PN_ITS ---
Subjective Subjective: Patient underwent coronary angiogram today. RCA HEAT PLANT SPECIALIST. Distal left main had mild to moderate stenosis. We confirmed with IVUS that it was not severe. Vitals/I&O/Wt Last Vital Signs Temp 97.8 F 07/03/22 11:30 Pulse 51 L 07/03/22 11:30 Resp 22 H 07/03/22 11:30 BP 132/61 07/03/22 12:00 Pulse Ox 93 07/03/22 11:30 O2 Del Method 07/03/22 11:30 O2 Flow Rate 2 07/03/22 11:30 FiO2 3 07/03/22 02:34 07/02/22 07/03/22 07/03/22 22:59 06:59 14:59 Intake Total 450 / 1750 100 / 1850 280 / 280 Output Total 450 / 1000 750 / 1750 1500 / 1500 Balance 0 / 750 -650 / 100 -1220 / -1220 Weight last 48 hrs Weight 158 lb 11.2 oz Weight 162 lb Weight 180 lb Physical Exam Narrative: GENERAL: Patient is alert, awake and oriented x3. [] NECK: No jugular vein distension. [] HEENT: No cyanosis. No icterus. No pallor. [] HEART: Regular S1 and S2. No murmur, rub or gallop. [] LUNGS: Bilateral crackles ABDOMEN: Soft, nontender and nondistended. Positive bowel sounds. No guarding, rebound or tenderness. [] CENTRAL NERVOUS SYSTEM: Grossly nonfocal. [] EXTREMITIES: Lower extremities with 1+ edema bilaterally. Pulses palpable in the lower extremities, both dorsalis pedis and posterior tibial. [] Data : 07/03/22 03:50 07/03/22 03:50 Micro: Microbiology 07/02/22 00:43 Blood Culture - Preliminary Blood NEGATIVE TO DATE 07/02/22 00:50 Blood Culture - Preliminary Blood NEGATIVE TO DATE A&P Assessment and plan (1) Non-ST elevation FL (NSTEMI): (2) Acute respiratory failure with hypoxia: (3) Acute exacerbation of CHF (congestive heart failure): (4) COPD (chronic obstructive pulmonary disease): (5) Hyperlipidemia: Qualifiers: Hyperlipidemia type: mixed hyperlipidemia Qualified Code(s): E78.2 - Mixed hyperlipidemia (6) Hypertension: Qualifiers: Hypertension type: essential hypertension Qualified Code(s): I10 - Essential (primary) hypertension Plan Patient has been found to have HEAT PLANT SPECIALIST of RCA. His mild to moderate distal left main stenosis. Otherwise no significant stenosis. Medical therapy. We will recommend ordering limited echocardiogram to reassess LV systolic function. Continue aspirin. Continue diuresis Thank you for involving us with care of this patient. We will continue to follow. Please call with questions Attestations Medical Necessity Statement*: Care expected to cross 2 midnights Coding Level of Care Code Acute General Duty Nurse for [facility] Fwd Diagnoses Non-ST elevation FL (NSTEMI) I21.4 Acute respiratory failure with hypoxia J96.01 Acute exacerbation of CHF (congestive heart failure) I50.9 COPD (chronic obstructive pulmonary disease) J44.9 Hyperlipidemia E78.2 Hyperlipidemia type: mixed hyperlipidemia Hypertension I10 Hypertension type: essential hypertension
--- NOTE | 2022-07-03 14:30 | PC.NURSE ---
TR band release started, pt complaining of pain at right wrist area.
[2022-07-03 15:48] LABS: Partial Thromboplastin Time 110.6 SECONDS (23.9-36.7)
[2022-07-03 17:49] LABS: Partial Thromboplastin Time 36.9 SECONDS (23.9-36.7)
[2022-07-03] MEDS: insulin lispro 100 unit/1 mL SUBCUT (18:01)
[2022-07-03 18:32] LABS: Glucose Point of Care 191 mg/dL (70-110)
--- NOTE | 2022-07-03 18:55 | PC.NURSE ---
Bedside report completed with HELIO Charles. PTT, for sheath removal, not resulted at beginning of report.
--- NOTE | 2022-07-03 19:19 | USCV_ITS ---
Shannan Cisneros Age: 67 Gender: F : 1955 Exam Date: 07/03/2022 22:34 Ordering Phys: Zach Reece M.D ([email or web address]) Technologist: Denise Li [place]am Location[place] [facility] [place] Indication: Ltd post cath BP: 130 / 41 HR: 59 Rhythm: Sinus Technical Quality: MEASUREMENTS (Male / Female) Normal Values 2D ECHO LV Diastolic Diameter PLAX 5.3 cm 4.2 - 5.9 / 3.9 - 5.3 cm LV Systolic Diameter PLAX 4.3 cm LV Chamber Size 4.8 cm IVS Diastolic Thickness 1.5 cm 0.6 - 1.0 / 0.6 - 0.9 cm IVS Systolic Thickness 1.3 cm LVPW Diastolic Thickness 1.8 cm 0.6 - 1.0 / 0.6 - 0.9 cm LVPW Systolic Thickness 1.9 cm RV Chamber Size 2.6 cm LVOT Diameter 2.0 cm LV Ejection Fraction 2D Teich 37.3 % LV Ejection Fraction MOD 2C 22.3 % LV Ejection Fraction 2C AL 21.3 % LA Diameter 4.4 cm LA Width 2.7 cm LA Height 4.1 cm RA Width 3.6 cm RA Height 4.0 cm Aorta at Sinotubular Diameter 2.9 cm IVC Diameter 1.3 cm M-MODE Aortic Annulus Diameter 3.3 cm LA Ao Ratio MM 1.6 MV E Point Septal Separation 1.3 cm FINDINGS Left Ventricle Right Ventricle Right Atrium Left Atrium Mitral Valve Aortic Valve Tricuspid Valve Pulmonic Valve Pericardium Aorta IVC CONCLUSIONS This is a limited echocardiogram performed to assess LV systolic function. LV systolic function grossly moderately reduced with EF of 35 to 40%. Moderate global hypokinesis is seen. Compared to prior echocardiogram from 04/07/2022, LV systolic function has decreased slightly Zach Reece MD (Electronically Signed) Final Date: 04 July 2022 09:23 S
--- NOTE | 2022-07-03 19:22 | PC.NURSE ---
Shift Note: Pt started the day petulant and testy. Not happy about having food and drink held for upcoming lab animal technologist procedure. She grudgingly took her morning meds. She went to lab animal technologist. TR band removed 1450, no hematoma or bleeding noted then or now at end of shift. Right wrist area is bruised. Right groin sheath remains in. PTT did not result until after shift report. NO hematoms or bleeding noted at right groin site. Pt did try to get out of bed towards end of shift and use BSC. Once again pt petulant and testy after grandson and daughter left for the day. Pt was irritated about needed to urinate and no immediate help at her bedside right at that moment. No call light use or shout to let staff know she needed assistance. Pt has had the call light within reach throughout this shift in ICU. She has had 1850 ml of clear yellow urine output. Sinus rhythm -sinus bradycardia noted on monitor thorughout shift. Frequent safety and comfort rounds continue. Orders and/or nursing care completed as indicated. Patient monitored for response to intervention and treatment(s). Education provided includes metoprolol, Lisinopril, Nitro, insulin,lab animal technologist and plan of care. Patient and/or financial sales representative Verbalized understanding of plan of care , and medications. Will continue to monitor.
[2022-07-03] MEDS: cefTRIAXone 1,000 MG in sodium chloride 0.9% (plus) 50 ML 100 MG IV (19:47)
--- NOTE | 2022-07-03 20:30 | PC.NURSE ---
Right groin sheath removed intact. Manual pressure held for 20min, pressure dressing applied, no bruising or hematoma noted, pt tolerated procedure well.
[2022-07-03] MEDS: atorvastatin 40 mg Tablet PO (20:33)
[2022-07-03] MEDS: insulin glargine 100 units/1 mL 20 UNIT SUBCUT (20:33)
[2022-07-03 20:34] LABS: Glucose Point of Care 90 mg/dL (70-110)
[2022-07-04] VITALS (37 sets, daily range): BP systolic 112–158; BP diastolic 46–77; PULSE 47–83; RESP 19–27; TEMP 36.1–36.9; O2SAT 81–97; BMI 26.4
[2022-07-04 04:29] LABS: Basophils # 0.1 10^3/uL (0.0-0.1); Basophils % 0.5 %; Eosinophils # 0.2 10^3/uL (0.0-0.8); Eosinophils % 1.6 %; Hematocrit 34.2 % (37.0-47.0); Hemoglobin 9.7 g/dL (11.5-15.3); Lymphocytes # 2.7 10^3/uL (0.8-4.8); Lymphocytes % 22.5 %; Mean Corpuscular HGB Conc 28.4 g/dL (30.0-36.0); Mean Corpuscular Hemoglobin 23.7 pg (28.0-34.0); Mean Corpuscular Volume 83.4 fl (81-99); Mean Platelet Volume 10.5 fL (7.4-10.4); Monocytes # 0.9 10^3/uL (0.2-0.9); Monocytes % 7.6 %; Neutrophils # 7.94 10^3/uL (1.8-7.7); Neutrophils % 67.3 %; Nucleated Red Blood Cells % 0 %; Platelet Count 307 10^3/cmm (130-400); Red Cell Distribution Width 14.7 % (12.1-15.1); White Blood Count 11.8 10^3/uL (4.0-10.0)
[2022-07-04 05:04] LABS: Alanine Aminotransferase < 5 U/L (0-33); Albumin Level 3.8 g/dL (3.5-5.2); Alkaline Phosphatase 96 U/L (35-105); Anion Gap 10.7 (5-19); Aspartate Amino Transferase 8 U/L (0-32); Blood Urea Nitrogen 20 mg/dL (8-23); Calcium 8.9 mg/dL (8.5-10.5); Carbon Dioxide 34 mmol/L (22-29); Chloride 98 mmol/L (98-107); Globulin 2.9 g/dL (1.3-4.6); Glomerular Filtration Rate 99.7 mL/min (90-130); Glucose 102 mg/dL (65-115); Osmolality Calculated 291 mOsm/kg (285-295); Potassium 3.7 mmol/L (3.5-5.1); Sodium 139 mmol/L (136-145); Total Bilirubin 0.3 mg/dL (0.15-1.2); Total Protein 6.7 g/dL (6.6-8.7)
[2022-07-04 07:38] LABS: Glucose Point of Care 110 mg/dL (70-110)
[2022-07-04] MEDS: enoxaparin 40 mg/0.4 mL Syringe SUBCUT (07:40)
[2022-07-04] MEDS: azithromycin 500 MG in sodium chloride 0.9% 250 ML 250 MG IV (07:41)
[2022-07-04] MEDS: carvedilol 3.125 mg Tablet PO (08:00)
[2022-07-04] MEDS: pantoprazole DR 40 mg Tablet PO (08:00)
[2022-07-04] MEDS: clopidogrel 75 mg Tablet PO (08:00)
[2022-07-04] MEDS: lisinopril 20 mg Tablet PO (08:00)
[2022-07-04] MEDS: aspirin 81 mg EC Tablet PO (08:00)
[2022-07-04] MEDS: ipratropium-albuterol 3 mL Neb INHALATION (08:32)
--- NOTE | 2022-07-04 10:18 | PM.DCS ---
Discharge Providers Date of Admission: 07/02/22 03:42 Date of Discharge: July 04, 2022 Attending Provider at Admission: To Bagley MD Attending Provider at Discharge: Sultana Marie MD Primary Care Provider: Willow Foreman APN Diagnoses at Discharge Discharge Diagnosis (1) Non-ST elevation DC (NSTEMI): Status: Acute (2) Acute respiratory failure with hypoxia: Status: Acute (3) Acute exacerbation of CHF (congestive heart failure): Status: Acute (4) COPD (chronic obstructive pulmonary disease): Status: Acute (5) Hyperlipidemia: Status: Acute Qualifiers: Hyperlipidemia type: mixed hyperlipidemia Qualified Code(s): E78.2 - Mixed hyperlipidemia (6) Hypertension: Status: Acute Qualifiers: Hypertension type: essential hypertension Qualified Code(s): I10 - Essential (primary) hypertension Reason for Visit Reason for Visit: RESP. DISTRESS Brief History: Shannan Cisneros is a 67 year old female with past medical history of hypertension diabetes,HFrEF, copd, current active smoker, came in today with chief complaint of acute onset of left-sided pressure-like chest pain 6 out of 10 in severity, nonradiating, accompanied with shortness of breath, started around 9 PM this evening. When EMS arrived to the scene they found patient to be hypoxic with sats in 70s as well as she was tachycardic.? She received nebs Solu-Medrol and aspirin en route to ER by EMS. Patient is currently denying any fever, chills, nausea vomiting, abdominal pain. Upon arrival in the ER she was worked up for above-mentioned complaint: Pertinent imaging studies: CTA chest:?Cardiomegaly with pulmonary edema consistent with congestive failure.Groundglass density throughout both lungs consistent with probable pulmonary edema versus pneumonitis.? More dense consolidation at the lung bases consistent with pneumonia.? There are small bilateral pleural effusions. EKG: SINUS RHYTHM, MODERATE T-WAVE ABNORMALITY, CONSIDER LATERAL ISCHEMIA? [-0.1+ mV T-WAVE IN I/aVL/V5/V6] . MODERATE T-WAVE ABNORMALITY, CONSIDER INFERIOR ISCHEMIA? [-0.1+ mV T-WAVE IN II/aVF] Pertinent labs: WBC 12.1, H&H 10.6/ 37 , PLT : 269 , serum sodium 141 serum potassium 3.7 BUN serum creatinine: 6/0.5 , Lactic acid 2.3-repeat lactic acid 1.6, procalcitonin normal, Troponin trend: - proBNP: 3698 ? Hospital Course Hospital Course Admitted for heart failure exacerbation and NSTEMI. Patient previously not on any diuretics at home. Patient underwent coronary angiogram.? RCA WORKERS COMPENSATION CLAIMS ASSISTANT.? Distal left main had mild to moderate stenosis.? We confirmed with IVUS that it was not severe. She will follow-up outpatient with cardiology. Limited echo done which shows EF 35 to 40%. Patient requiring 3 L of nasal cannula however refuses to take oxygen at home with her. Multiple nurses and myself tried to career development counselor her and even brought portable oxygen to her bedside but she refused to bear weight. She understands that she may end up having a syncopal episode, arrhythmias and potentially . She understands the risks but would still like to leave without oxygen. Patient educated. She will be discharged home. Patient to complete 3 more days of Augmentin to cover for pneumonia. Physical Exam Const: COMMON NORMALS: patient oriented x3 Resp: COMMON NORMALS: clear to auscultation bilaterally AUSCULTATION: clear to auscultation bilaterally OTHER: Diminished at bases bilaterally Cardio: COMMON NORMALS: regular rate, regular rhythm, S1 normal heart sound present, S2 normal heart sound present, No gallops present (Cardio), No murmurs present (Cardio), No rub (Cardio) and Peripheral pulses 2+ throughout RATE: regular rate RHYTHM: regular rhythm HEART SOUNDS: S1 normal heart sound present and S2 normal heart sound present PERIPHERAL PULSES: Peripheral pulses 2+ throughout GI: COMMON NORMALS: Normal to inspection, nondistended, normoactive bowel sounds present, Soft to palpation and non-tender AUSCULTATION: Yes normoactive bowel sounds PALPATION: Yes Soft to palpation RECTAL EXAM: deferred Extremity: COMMON NORMALS: no clubbing, cyanosis or edema and no pedal edema Neuro: COMMON NORMALS: patient oriented x3 Discharge Data Studies Completed and Pending Completed Studies During Hospitalization Category Date Time Status CTA chest [CT angio chest PE protcl [id number]] Stat Cat Scan 07/02/22 00:49 Completed XR chest 1V portable [id number] Stat Exams 07/02/22 00:32 Completed CV. echo limited [id number] Routine Ultrasound 07/03/22 19:19 Completed Pending at discharge Category Date Time Status CLASSIFICATION INSPECTOR request for service Routine Exams 07/03/22 10:07 Taken Blood Culture Stat Lab 07/02/22 00:43 Results Complete Blood Count w/Auto AM LABS Lab 07/05/22 04:00 Ordered Comprehensive Metabolic Panel AM LABS Lab 07/05/22 04:00 Ordered Sputum Culture and Gram Stain Routine Lab 07/02/22 04:55 Uncollected Radiology Impressions Chest X-Ray 07/02/22 00:32 IMPRESSION: COPD with superimposed pneumonia at the right lung base. Chest CTA 07/02/22 00:49 IMPRESSION: Cardiomegaly with pulmonary edema consistent with congestive failure. COPD with probable superimposed pneumonia infiltrates at both lung bases. Laboratory Results WBC 11.8 10^3/uL (4.0-10.0) H 07/04/22 03:15 Corrected WBC Cancelled 07/02/22 00:34 RBC 4.10 10^6/uL (4.1-5.3) 07/04/22 03:15 Hgb 9.7 g/dL (11.5-15.3) L 07/04/22 03:15 Hct 34.2 % (37.0-47.0) L 07/04/22 03:15 MCV 83.4 fl (81-99) 07/04/22 03:15 MCH 23.7 pg (28.0-34.0) L 07/04/22 03:15 MCHC 28.4 g/dL (30.0-36.0) L 07/04/22 03:15 RDW 14.7 % (12.1-15.1) 07/04/22 03:15 Plt Count 307 10^3/cmm (130-400) 07/04/22 03:15 MPV 10.5 fL (7.4-10.4) H 07/04/22 03:15 Gran % Cancelled 07/02/22 00:34 Neut % (Auto) 67.3 % 07/04/22 03:15 Lymph % (Auto) 22.5 % 07/04/22 03:15 [place] % (Auto) 7.6 % 07/04/22 03:15 Eos % (Auto) 1.6 % 07/04/22 03:15 Baso % (Auto) 0.5 % 07/04/22 03:15 Neut # (Auto) 7.94 10^3/uL (1.8-7.7) H 07/04/22 03:15 Lymph # (Auto) 2.7 10^3/uL (0.8-4.8) 07/04/22 03:15 [place] # (Auto) 0.9 10^3/uL (0.2-0.9) 07/04/22 03:15 Eos # (Auto) 0.2 10^3/uL (0.0-0.8) 07/04/22 03:15 Baso # (Auto) 0.1 10^3/uL (0.0-0.1) 07/04/22 03:15 Absolute Gran (auto) Cancelled 07/02/22 00:34 Nucleated RBC % (auto) 0 % 07/04/22 03:15 Nucleated RBCs # 0.0 /100WBC 07/04/22 03:15 PT 15.20 SECONDS (12.1-14.9) H 07/02/22 00:50 INR 1.16 (0.8-1.2) 07/02/22 00:50 APTT 36.9 SECONDS (23.9-36.7) H D 07/03/22 17:30 D-Dimer 1.42 ug/mIFEU (0-0.59) H 07/02/22 00:50 Specimen Type Arterial 07/02/22 00:27 Sample Site Radial, right 07/02/22 00:27 ABG pH 7.39 (7.35-7.45) 07/02/22 00:27 ABG pCO2 43.5 mmHg (35-45) 07/02/22 00:27 ABG pO2 50.4 mmHg (80.0-100.0) L 07/02/22 00:27 ABG HCO3 26.0 mmol/L (22-26) 07/02/22 00:27 ABG Base Excess 0.7 mmol/L (-2.0-2.0) 07/02/22 00:27 Endy Test Pos 07/02/22 00:27 Hematocrit 32.7 % (37-47) L 07/02/22 00:27 Hgb O2 Saturation 80.6 % (95-100) L 07/02/22 00:27 Carboxyhemoglobin 4.3 %THgb (0.4-20.1) 07/02/22 00:27 Methemoglobin 0.8 % (0.4-1.5) 07/02/22 00:27 Total Hemoglobin 10.7 g/dL (12-16) L 07/02/22 00:27 O2 Delivery Device Nc 07/02/22 00:27 O2 Liters/Min 6.0 % 07/02/22 00:27 Navigation Teacher ID Cierra 07/02/22 00:27 Sodium 139 mmol/L (136-145) 07/04/22 03:15 Potassium 3.7 mmol/L (3.5-5.1) 07/04/22 03:15 Chloride 98 mmol/L (98-107) 07/04/22 03:15 Carbon Dioxide 34 mmol/L (22-29) H 07/04/22 03:15 Anion Gap 10.7 (5-19) 07/04/22 03:15 BUN 20 mg/dL (8-23) 07/04/22 03:15 Creatinine 0.6 mg/dL (0.5-0.9) 07/04/22 03:15 GFR Calculation 99.7 mL/min (90-130) 07/04/22 03:15 Glucose 102 mg/dL (65-115) 07/04/22 03:15 POC Glucose 110 mg/dL (70-110) 07/04/22 07:36 Calculated Osmolality 291 mOsm/kg (285-295) 07/04/22 03:15 Lactic Acid 2.3 mmol/L (0.5-2.2) H 07/02/22 00:50 Lactic Acid (Sepsis) 1.6 mmol/L (0.5-2.2) 07/02/22 03:24 Calcium 8.9 mg/dL (8.5-10.5) 07/04/22 03:15 Magnesium 1.7 mg/dL (1.7-2.3) 07/03/22 03:50 Total Bilirubin 0.3 mg/dL (0.15-1.2) 07/04/22 03:15 AST 8 U/L (0-32) 07/04/22 03:15 ALT < 5 U/L (0-33) 07/04/22 03:15 Alkaline Phosphatase 96 U/L (35-105) 07/04/22 03:15 Troponin T Baseline 20 ng/L (0-10) H 07/02/22 00:50 Troponin T 120 Minute 61.49 ng/L (0-10) H 07/02/22 03:10 Delta Troponin T 41.49 ABS# (0-10) H* 07/02/22 03:10 Troponin T Hi Sens 6Hr 83.24 ng/L (0-10) H 07/02/22 07:03 Troponin T Hi Sens 6Hr Delta 63.24 ng/L (0-12) H* 07/02/22 07:03 C-Reactive Protein 6.0 mg/L (0.0-4.9) H 07/02/22 00:50 NT-Pro-B Natriuret Pep 3698 pg/mL (0-125) H 07/02/22 00:50 Total Protein 6.7 g/dL (6.6-8.7) 07/04/22 03:15 Albumin 3.8 g/dL (3.5-5.2) 07/04/22 03:15 Globulin 2.9 g/dL (1.3-4.6) 07/04/22 03:15 Lipase 25 U/L (13-60) 07/02/22 00:50 Procalcitonin 0.02 ng/mL (0-0.5) 07/02/22 00:50 Coronavirus 229E (PCR) Not detected (NOT DETECT) 07/02/22 00:55 SARS-CoV-2 (PCR) Not detected (NOT DETECT) 07/02/22 00:55 Vitals Last Vital Signs Temp 97.0 F L 07/04/22 07:00 Pulse 73 07/04/22 08:38 Resp 24 H 07/04/22 08:32 BP 156/60 07/04/22 08:00 Pulse Ox 81 L 07/04/22 10:10 O2 Del Method 07/04/22 08:32 O2 Flow Rate 3 07/04/22 10:10 FiO2 3 07/03/22 02:34 Discharge Plan Discharge Patient Disposition: Home Condition: Stable Prescriptions: New lisinopril 20 mg Tablet 20 mg PO BID 30 Days Qty: 60 0RF clopidogrel 75 mg Tablet 75 mg PO DAILY 30 Days Qty: 30 0RF carvedilol 3.125 mg Tablet 3.125 mg PO BID 30 Days Qty: 60 0RF amoxicillin-pot clavulanate 875-125 mg tablet 1 tab PO BID 3 Days Qty: 6 0RF metformin 500 mg tablet 500 mg PO BID 30 Days Qty: 60 0RF Lasix 40 mg tablet 40 mg PO BID 7 Days Qty: 14 0RF potassium chloride 20 mEq tablet extended release 20 meq PO BID 7 Days Qty: 14 0RF Lasix 20 mg tablet 20 mg PO BID 30 Days Qty: 60 0RF Rx Instructions: Start after finishing lasix 40 bid script. potassium chloride 20 mEq tablet extended release 20 meq PO DAILY 30 Days Qty: 30 0RF Rx Instructions: Take once a day when on lasix 20 BID. Continued pantoprazole 40 mg tablet,delayed release (DR/EC) 40 mg PO DAILY ondansetron HCl 4 mg tablet 4 mg PO Q4H PRN (Reason: NAUSEA) atorvastatin 40 mg tablet 40 mg PO BEDTIME albuterol sulfate 90 mcg/actuation Hfa Aerosol Inhaler 2 puff INHALATION QID PRN (Reason: Shortness Of Breath) ferrous gluconate 324 mg (37.5 mg iron) Tablet 324 mg PO BIDWM Qty: 60 0RF aspirin 81 mg capsule 81 mg PO DAILY Qty: 30 0RF Discharge Orders: Discharge Order (Routine); Ordered 07/04/22 Ordered By: Sultana Marie Other Ambulatory Orders: DME: Oxygen (Order) Location: None Selected Ordered By: Sultana Marie Referrals: Janis Trimble FNP [Nurse Practitioner] - 1 week Celena Espana MD [Physician] - 1 month Foreman,CHRIST Daugherty [Primary Care Provider] - 4-7 days Discharge Diet: Cardiac, Diabetic and Low Salt Discharge Activity: Increase activity as tolerated and Oxygen as instructed Patient Instructions: Lisinopril (By mouth), Potassium Chloride (By mouth), Amoxicillin (By mouth), Metformin (By mouth), Carvedilol (By mouth), Clopidogrel (By mouth), Low Sodium Diet, Heart Failure (DC), Viral Pneumonia (DC), Using Oxygen at Home (DC), CHF Stoplight, Opioid Safety, Post Angiogram Home Care Instructions Activity Restrictions/Additional Instructions: Take Lasix 40mg twice a day for 7 days along with potassium tablet 20 mg twice a day for 7 days. Thereafter start on lasix 20 mg twice a day and take potassium tablet 20 mg once a day. Please continue to use your oxygen as directed. Please follow up with your primary care doctor within 4-7 days of discharge and see cardiology as advised. Discharge Attestations Time Spent in Discharge Care*: greater than 30 min Status at Discharge: Cognitive status at discharge: cognitively intact, Behavioral status at discharge: cooperative, Quality Metrics Clinical Quality Measures [ No reported AMI, CVA or VTE this stay] Coding Level of Care Code Acute Chg FW DC note Diagnoses Non-ST elevation DC (NSTEMI) I21.4 Acute respiratory failure with hypoxia J96.01 Acute exacerbation of CHF (congestive heart failure) I50.9 COPD (chronic obstructive pulmonary disease) J44.9 Hyperlipidemia E78.2 Hyperlipidemia type: mixed hyperlipidemia Hypertension I10 Hypertension type: essential hypertension
--- NOTE | 2022-07-04 10:28 | PM.PN ---
Subjective Subjective: Patient doing well. Denies any complaints of chest pain. Still has some shortness of breath. Vitals/I&O/Wt Last Vital Signs Temp 97.0 F L 07/04/22 07:00 Pulse 73 07/04/22 08:38 Resp 24 H 07/04/22 08:32 BP 156/60 07/04/22 08:00 Pulse Ox 81 L 07/04/22 10:10 O2 Del Method 07/04/22 08:32 O2 Flow Rate 3 07/04/22 10:10 FiO2 3 07/03/22 02:34 07/03/22 07/04/22 07/04/22 22:59 06:59 14:59 Intake Total 50 / 330 200 / 530 250 / 250 Output Total 500 / 2200 150 / 2350 Balance -450 / -1870 50 / -1820 250 / 250 Weight last 48 hrs Weight 158 lb 11.2 oz Weight 158 lb 11.2 oz Physical Exam Narrative: GENERAL: Patient is alert, awake and oriented x3. [] NECK: No jugular vein distension. [] HEENT: No cyanosis. No icterus. No pallor. [] HEART: Regular S1 and S2. No murmur, rub or gallop. [] LUNGS: Bilateral crackles ABDOMEN: Soft, nontender and nondistended. Positive bowel sounds. No guarding, rebound or tenderness. [] CENTRAL NERVOUS SYSTEM: Grossly nonfocal. [] EXTREMITIES: Lower extremities with 1+ edema bilaterally. Pulses palpable in the lower extremities, both dorsalis pedis and posterior tibial. [] Data : 07/04/22 03:15 07/04/22 03:15 Micro: Microbiology 07/02/22 04:50 Legionella Urinary Antigen - Final Urine,Clean Catch Bacterial Antigens - Final A&P Assessment and plan (1) Non-ST elevation MN (NSTEMI): (2) Acute respiratory failure with hypoxia: (3) Acute exacerbation of CHF (congestive heart failure): (4) COPD (chronic obstructive pulmonary disease): (5) Hyperlipidemia: Qualifiers: Hyperlipidemia type: mixed hyperlipidemia Qualified Code(s): E78.2 - Mixed hyperlipidemia (6) Hypertension: Qualifiers: Hypertension type: essential hypertension Qualified Code(s): I10 - Essential (primary) hypertension Plan Patient's cardiac cath yesterday showed EDGE BEADER of RCA and mild to moderate distal left main stenosis. Otherwise no significant stenosis. Medical therapy needed. Patient's volume status is improved. He can be switched to p.o. Lasix. She is stable to be discharged from cardiology standpoint Thank you for involving us with care of this patient. Please call with questions Attestations Medical Necessity Statement*: Care expected to cross 2 midnights Coding Level of Care Code Acute Field Marketing Associate for [facility] Fwd Diagnoses Non-ST elevation MN (NSTEMI) I21.4 Acute respiratory failure with hypoxia J96.01 Acute exacerbation of CHF (congestive heart failure) I50.9 COPD (chronic obstructive pulmonary disease) J44.9 Hyperlipidemia E78.2 Hyperlipidemia type: mixed hyperlipidemia Hypertension I10 Hypertension type: essential hypertension
[2022-07-04 11:31] LABS: Glucose Point of Care 180 mg/dL (70-110)
[2022-07-04] MEDS: insulin lispro 100 unit/1 mL SUBCUT (11:32)
[2022-07-04] MEDS: nitroglycerin 1 gm/inch oint Pkt 0.5 INCH TOPICAL (11:33)
--- NOTE | 2022-07-04 11:51 | PC.NURSE ---
talked at length with pt about home o2.. gentleman here with portable tank and she is refusing to take it home ... i will not carry that around. and will not use oxygen at home as I use wood heat and refuse it. .. informed doctor .. pt up and left out on her own
== END 2022-07-04 11:57 | disposition home or self-care (01) | DRG 280 ==
LOC: ER 03:42 → MEDSURG 03:55 → ICU 04:46
PROVIDERS: Internal Medicine; Admitting Provider Internal Medicine; Emergency Provider Emergency Medicine; PCP Nurse Practitioner Family; Visit Provider Internal Medicine
PROC: 4A023N7 Measurement of Cardiac Sampling and Pressure, Left Heart, Percutaneous Approach (ICD-10-PCS; principal; 2022-07-03 11:45)
DX: I21.4 Non-ST elevation (NSTEMI) myocardial infarction (principal); I50.33 Acute on chronic diastolic (congestive) heart failure; J96.01 Acute respiratory failure with hypoxia; J44.1 Chronic obstructive pulmonary disease with (acute) exacerbation; J44.0 Chronic obstructive pulmonary disease with (acute) lower respiratory infection; I42.9 Cardiomyopathy, unspecified; I11.0 Hypertensive heart disease with heart failure; E11.51 Type 2 diabetes mellitus with diabetic peripheral angiopathy without gangrene; F17.210 Nicotine dependence, cigarettes, uncomplicated; E78.2 Mixed hyperlipidemia; Z79.82 Long term (current) use of aspirin; Z79.51 Long term (current) use of inhaled steroids; I25.10 Atherosclerotic heart disease of native coronary artery without angina pectoris
CPT/HCPCS: 36415; 36416; 36600; 71045; 71275; 80053; 82805; 82962; 83605; 83690; 83735; 83880; 84145; 84484; 85025; 85347; 85378; 85610; 85730; 86140; 86403; 87040; 87449; 87635; 92978; 93005; 93308; 93458; 94640; 94760; 96360; 96365; 96367; 96372; 99152; 99153; 99285; C1753; C1769; C1887; C1894; J0456; J0696; J1644; J1650; J1815; J1940; J2250; J2543; J3010; J3370; J3490; J7030; J7040; J7050; Q9967

== ENCOUNTER → 2022-07-19 10:08 | Outpatient (BNVA) | payer MEDICARE, MEDICAID, SELFPAY | PROVIDERS: PCP Nurse Practitioner Family; Visit Provider Nurse Practitioner Family | DX: I11.0 Hypertensive heart disease with heart failure (principal); I50.22 Chronic systolic (congestive) heart failure; I25.10 Atherosclerotic heart disease of native coronary artery without angina pectoris; F17.210 Nicotine dependence, cigarettes, uncomplicated | CPT/HCPCS: 99214 ==